=== PATIENT | female | born 1945 | race African-American/Black ===

== ENCOUNTER 2016-05-15 13:44 | Inpatient (IN) | payer MEDICARE, MEDICAID ==
[~2016-05-15] VITALS: Ht 172.7 cm; Wt 73.5 kg
[~2016-05-15 13:44] MED LIST: ALBU8I INH; DUONI NEB; HYDR-3535 PO; LISI-515 PO; NITR.4 SL; PROT40TA PO; XANA1TAB2 PO; XANA1TAB6 PO; XARE10TA PO
[2016-05-15 13:46] VITALS: BP 124/75; PULSE 126; RESP 14; TEMP 98.2; O2SAT 96
[2016-05-15 14:29] LABS: AUTOMATED NEUTROPHIL # 7.4 TH/MM3 (1.8-7.7); BASOPHIL # 0.1 TH/MM3 (0-0.2); EOSINOPHIL # 0.1 TH/MM3 (0-0.4); HEMATOCRIT 34.2 % (35.0-46.0); HEMO FLAGS DIFF FINAL; LYMPH % 11.4 % (9.0-44.0); LYMPHOCYTE # 1.1 TH/MM3 (1.0-4.8); MEAN CELL VOLUME 81.9 FL (80.0-100.0); MEAN CORPUSCULAR HEMOGLOBIN 26.1 PG (27.0-34.0); MEAN CORPUSCULAR HGB CONC 31.9 % (32.0-36.0); MONO % 6.6 % (0.0-8.0); PLATELET COUNT 253 TH/MM3 (150-450); RED BLOOD COUNT 4.18 MIL/MM3 (4.00-5.30); RED CELL DISTRIBUTION WIDTH 21.4 % (11.6-17.2); WHITE BLOOD COUNT 9.3 TH/MM3 (4.0-11.0)
[2016-05-15 14:31] LABS: APTT (PATIENT) 31.2 SEC (24.3-30.1); INTERNATIONAL NORMALIZED RATIO 1.1 RATIO
[2016-05-15 14:45] LABS: BICARBONATE 22.8 MEQ/L (21.0-32.0); POTASSIUM 3.4 MEQ/L (3.5-5.1)
[2016-05-15] MEDS ORDERED: SODIUM CHLOR 0.9% 1000 ML INJ 1,000 ML IV SCH ×3 (14:46→18:45)
[2016-05-15 14:50] VITALS: RESP 18; O2SAT 98
[2016-05-15] MEDS ORDERED: ONDANSETRON HCL 4 MG/2 ML VIAL IVP ONE (15:00)
[2016-05-15] MEDS ORDERED: MORPHINE SULFATE 4 MG/ML INJ IV PUSH ONE (15:00)
--- NOTE | 2016-05-15 15:22 | PD ---
HPI Chief Complaint: Fall Time Seen by Provider: 15:16 Travel History International Travel<30 days: No Contact w/Intl Traveler<30days: No Traveled to known affect area: No History of Present Illness HPI 71-year-old female with a history of esophageal cancer that presents to the ED for evaluation of generalized weakness after a fall that she had about 1-2 months ago. Per patient she fell down some stairs. Per patient she went to [facility]. Unclear as to what they did as she cannot really tell me. Per patient she didn't have any fractures. Per patient and she will get better but she has not. Per patient she feels very weak and she has pain all over. Per patient she is to take Lortab for her chronic pain but she no longer takes this recurs she cannot even go to see her doctor. Per patient she has not seen anybody for this. Per patient she has a history of what appears to be esophageal cancer and she was supposed to follow with a GI doctor after her chemotherapy radiation but she has not in the past 6 months. She does have a history of smoking. She states that she has some chest pain as well as abdominal discomfort as well as urinary incontinence but denies any problems with bowel movements. Per patient she has difficulty ambulating she came here by ambulance because she cannot walk anymore. Per patient she does drink and oriented because of this. She states that her pain is "everywhere ". Mainly on the lower extremities and appears to be per patient 8 out of 10. She denies any allergies to medication. Per patient is also having difficulty swallowing and she cannot even swallow her pills. PFSH Past Medical History Hx Anticoagulant Therapy: Yes Cardiovascular Problems: Yes Chemotherapy: Yes Diminished Hearing: No Hypertension: Yes Respiratory: Yes Tetanus Vaccination: > 5 Years Influenza Vaccination: Yes ?: Not Menopausal: Yes Past Surgical History Hysterectomy: Yes Joint Replacement: Yes (BILATERAL KNEES) Social History Alcohol Use: Yes (OCASSIONALLY) Tobacco Use: Yes Substance Use: Yes (POT) Allergies-Medications (Allergen,Severity, Reaction): Coded Allergies: No Known Allergies (Unverified , 05/15/16) Reported Meds & Prescriptions Reported Meds & Active Scripts Active Reported Xarelto (Rivaroxaban) 10 Mg Tab Unknown Dose PO DAILY Lortab (Hydrocodone-Acetaminophen) 10-325 Mg Tab 1 Tab PO Q6HR PRN Xanax (Alprazolam) 1 Mg Tab 1 Mg PO TID PRN Lisinopril 20 Mg Tab 20 PO DAILY Review of Systems Except as stated in HPI: all other systems reviewed are Neg Physical Exam Narrative GENERAL: SKIN: Warm and dry. HEAD: Atraumatic. Normocephalic. EYES: Pupils equal and round 4 mm reactive to light and accommodation. No scleral icterus. No injection or drainage. ENT: No nasal bleeding or discharge. Mucous membranes pink and moist. Tongue is midline. No uvula deviation. Tonsils are not enlarged or swollen. Uvula deviation. Patient does have irritation of the throat with possible skin lesions. NECK: Trachea midline. No JVD. CARDIOVASCULAR: Regular rate and rhythm. No murmurs, S3, S4. RESPIRATORY: No accessory muscle use. Clear to auscultation. Breath sounds equal bilaterally. GASTROINTESTINAL: Abdomen soft, non-tender, nondistended. Hepatic and splenic margins not palpable. MUSCULOSKELETAL: Extremities without clubbing, cyanosis, or edema. No obvious deformities. Full range of motion of the upper and lower extremities bilaterally. 2+ pulses bilaterally. No cervical, thoracic, lumbar spine tenderness to palpation. Patient does have reproducible pain on the lower extremities with any touch or movement. She is able to move them fully actively with no obvious distress. NEUROLOGICAL: Awake and alert. No obvious cranial nerve deficits. Motor grossly within normal limits. Five out of 5 muscle strength in the arms and legs. Normal speech. PSYCHIATRIC: Appropriate mood and affect; insight and judgment normal. Data Data Last Documented VS Vital Signs Date Time Temp Pulse Resp B/P Pulse Ox O2 Delivery O2 Flow Rate FiO2 05/15/16 17:32 98.0 102 18 128/76 96 Room Air Orders Complete Blood Count With Diff (05/15/16 13:59) Basic Metabolic Panel (Bmp) (05/15/16 13:59) Act Partial Throm Time (Ptt) (05/15/16 13:59) Prothrombin Time / Inr (Pt) (05/15/16 13:59) Electrocardiogram (05/15/16 ) Creatine Kinase (Cpk) (05/15/16 14:46) Ckmb (Isoenzyme) Profile (05/15/16 14:46) Troponin I (05/15/16 14:46) Lipase (05/15/16 14:46) Urinalysis - C+S If Indicated (05/15/16 14:46) Alcohol (Ethanol) (05/15/16 14:46) Thyroid Stimulating Hormone (05/15/16 14:46) Chest, Single Ap (05/15/16 14:46) Ct Brain W/O Iv Contrast(Rout) (05/15/16 14:46) Ct Abd/Pel W Iv Contrast(Rout) (05/15/16 14:46) Iv Access Insert/Monitor (05/15/16 14:46) Ecg Monitoring (05/15/16 14:46) Oximetry (05/15/16 14:46) Femur (Ap & Lat/2vws) (05/15/16 14:46) Foot, Limited (2vws) (05/15/16 14:46) Tibia/Fibula (Ap/Lat) (05/15/16 14:46) Ice/Cold Pack (05/15/16 14:46) Foot, Limited (2vws) (05/15/16 ) Tibia/Fibula (Ap/Lat) (05/15/16 ) Femur (Ap & Lat/2vws) (05/15/16 ) Pelvis, Ap Only (Routine) (05/15/16 ) Morphine Inj (Morphine Inj) (05/15/16 15:00) Ondansetron Inj (Zofran Inj) (05/15/16 15:00) Sodium Chlor 0.9% 1000 Ml Inj (Ns 1000 M (05/15/16 14:46) Hepatic Functional Panel (05/15/16 14:46) Ct Thorax/ Chest Wo Iv Contras (05/15/16 ) Labs Laboratory Tests Test 05/15/16 05/15/16 05/15/16 14:10 15:00 16:20 White Blood Count 9.3 TH/MM3 Red Blood Count 4.18 MIL/MM3 Hemoglobin 10.9 GM/DL Hematocrit 34.2 % Mean Corpuscular Volume 81.9 FL Mean Corpuscular Hemoglobin 26.1 PG Mean Corpuscular Hemoglobin 31.9 % Concent Red Cell Distribution Width 21.4 % Platelet Count 253 TH/MM3 Mean Platelet Volume 8.3 FL Neutrophils (%) (Auto) 80.0 % Lymphocytes (%) (Auto) 11.4 % Monocytes (%) (Auto) 6.6 % Eosinophils (%) (Auto) 1.0 % Basophils (%) (Auto) 1.0 % Neutrophils # (Auto) 7.4 TH/MM3 Lymphocytes # (Auto) 1.1 TH/MM3 Monocytes # (Auto) 0.6 TH/MM3 Eosinophils # (Auto) 0.1 TH/MM3 Basophils # (Auto) 0.1 TH/MM3 CBC Comment DIFF FINAL Differential Comment Prothrombin Time 12.0 SEC Prothromb Time International 1.1 RATIO Ratio Activated Partial 31.2 SEC Thromboplast Time Sodium Level 134 MEQ/L Potassium Level 3.4 MEQ/L Chloride Level 97 MEQ/L Carbon Dioxide Level 22.8 MEQ/L Anion Gap 14 MEQ/L Blood Urea Nitrogen 5 MG/DL Creatinine 0.71 MG/DL Estimat Glomerular Filtration 81 ML/MIN Rate Random Glucose 108 MG/DL Calcium Level 9.6 MG/DL Total Bilirubin 0.4 MG/DL Direct Bilirubin 0.2 MG/DL Indirect Bilirubin 0.2 MG/DL Aspartate Amino Transf 40 U/L (AST/SGOT) Alanine Aminotransferase 15 U/L (ALT/SGPT) Alkaline Phosphatase 166 U/L Total Creatine Kinase 50 U/L Troponin I LESS THAN 0.02 NG/ML Total Protein 8.0 GM/DL Albumin 2.9 GM/DL Lipase 135 U/L Thyroid Stimulating Hormone 19.900 uIU/ML 3rd Gen Ethyl Alcohol Level 40 MG/DL Urine Color YELLOW Urine Turbidity CLEAR Urine pH 6.5 Urine Specific Buckley 1.021 Urine Protein NEG mg/dL Urine Glucose (UA) NEG mg/dL Urine Ketones NEG mg/dL Urine Occult Blood NEG Urine Nitrite NEG Urine Bilirubin NEG Urine Urobilinogen LESS THAN 2.0 MG/DL Urine Leukocyte Esterase NEG Urine RBC LESS THAN 1 /hpf Urine WBC 3 /hpf Urine Squamous Epithelial 1 /hpf Cells Urine Mucus FEW /lpf Microscopic Urinalysis Comment CULT NOT INDICATED MDM Medical Decision Making Medical Screen Exam Complete: Yes Emergency Medical Condition: Yes Medical Record Reviewed: Yes Interpretation(s) CBC & BMP Diagram 05/15/16 14:10 TSh of 19 Troponin, LFTs within normal limits. Lipase within normal limits. CK-MB negative. Last Impressions Tibia/Fibula X-Ray 05/15/16 1446 Signed Impressions: Service Date/Time: Sunday, May 15, 2016 16:13 - CONCLUSION: No acute disease. Jo Raines MD Head CT 05/15/16 1446 Signed Impressions: Service Date/Time: Sunday, May 15, 2016 15:53 - CONCLUSION: Negative for acute traumatic injury. Gerardo Tang MD FACR Foot X-Ray 05/15/16 144 Signed Impressions: Service Date/Time: Sunday, May 15, 2016 16:07 - CONCLUSION: No acute disease. Jo Raines MD Chest X-Ray 05/15/16 144 Signed Impressions: Service Date/Time: Sunday, May 15, 2016 16:05 - CONCLUSION: Multiple pulmonary masses. These appear grossly stable as compared to the prior plain film of the chest dated February 22, 2016.. Jo Raines MD Abdomen/Pelvis CT 05/15/16 144 Signed Impressions: Service Date/Time: Sunday, May 15, 2016 15:57 - CONCLUSION: Abnormal lung exam with a irregular 1.3 cm mass identified within the right lower lung. Given the morphology this could represent a small lung cancer in a background setting of chronic interstitial lung disease. If not previously performed recommend CT of the thorax to evaluate for additional lesions. No evidence of metastatic disease to the adrenal glands or liver. Jo Raines MD Tibia/Fibula X-Ray 05/15/16 0000 Signed Impressions: Service Date/Time: Sunday, May 15, 2016 16:09 - CONCLUSION: No acute disease. Jo Raines MD Foot X-Ray 05/15/16 0000 Signed Impressions: Service Date/Time: Sunday, May 15, 2016 16:08 - CONCLUSION: No acute disease. Jo Raines MD Differential Diagnosis Sepsis versus UTI versus cancer versus cardiac chest pain versus abdominal pain versus cancer pain versus weakness Narrative Course 71-year-old female that presents to the ED for evaluation of generalized weakness. Patient was properly examined and was found to have signs and symptoms of unclear etiology at this time. Commissions for labs and imaging. Patient is very tachycardic during exam. Patient has pain with barely any touch especially in the lower extremities. Patient does have lesions on the back of the throat that appear to be suspicious for tumors. My recommendation at this time is for labs and imaging. Likely admission. Patient was started on IV fluids and pain medication. Labs and imaging were for the most part okay except for slightly elevated TSH as well as lung mass on the right lower lung. My attending Dr. Yu evaluated the patient with me and from the history she obtained from the patient apparently she's also been having syncopal episodes but she is passing out for the past couple days. Patient has had falls because of this increasing her pain. Because of this my attending recommends admission for syncope as well as for the lung mass in the TSH. Patient was told the results on the CT scan of the abdomen and recommendation was to do another CT of the thorax. She agrees for us to proceed. Case was discussed with Dr. Deleon who agrees admission to Dr. Hunter. Diagnosis Primary Impression: Syncope Qualified Code: R55 - Syncope, unspecified syncope type Additional Impressions: Lung mass Hypothyroidism Qualified Code: E03.9 - Hypothyroidism, unspecified type Admitting Information Admitting Physician Requests: Issa Priest May 15, 2016 15:22
[2016-05-15] MEDS ORDERED: IOHEXOL 350 MG/ML 10 ML VIAL (for RAD DIAG) IV ONE (15:57)
--- NOTE | 2016-05-15 16:03 | RADRPT ---
EXAM DATE/TIME: 05/15/2016 15:53 [facility] COMPARISON: CT BRAIN W/O CONTRAST, February 22, 2016, 15:23. INDICATIONS : Fall 1 month ago RADIATION DOSE: 57.02 CTDIvol (mGy) MEDICAL HISTORY : Cardiovascular disease. Hypertension. SURGICAL HISTORY : Hysterectomy. ENCOUNTER: Initial ACUITY: 1 month PAIN SCALE: 0/10 LOCATION: cranial TECHNIQUE: Multiple contiguous axial images were obtained of the head. Using automated exposure control and adj ustment of the mA and/or kV according to patient size, radiation dose was kept as low as reasonably a chievable to obtain optimal diagnostic quality images. FINDINGS: CEREBRUM: The ventricles are normal for age. No evidence of midline shift, mass lesion, hemorrhage or acute in farction. No extra-axial fluid collections are seen. POSTERIOR FOSSA: The cerebellum and brainstem are intact. The 4th ventricle is midline. The cerebellopontine angle i s unremarkable. EXTRACRANIAL: The visualized portion of the orbits is intact. SKULL: The calvaria is intact. No evidence of skull fracture. CONCLUSION: Negative for acute traumatic injury. Gerardo Tang MD FACR on May 15, 2016 at 16:01 Board Certified Radiologist. This report was verified electronically.
--- NOTE | 2016-05-15 16:19 | RADRPT ---
EXAM DATE/TIME: 05/15/2016 15:57 [facility] COMPARISON: CT ABDOMEN & PELVIS W CONTRAST, March 07, 2016, 3:44. INDICATIONS : Generalized weakness with fall 1 month ago IV CONTRAST: 97 cc Omnipaque 350 (iohexol) IV ORAL CONTRAST: No oral contrast ingested. RADIATION DOSE: 8.42 CTDIvol (mGy) MEDICAL HISTORY : Hypertension. Cardiovascular disease SURGICAL HISTORY : Hysterectomy. ENCOUNTER: Initial ACUITY: 1 month PAIN SCALE: 0/10 LOCATION: Abdomen TECHNIQUE: Volumetric scanning of the abdomen and pelvis was performed. Using automated exposure control and adjustment of the mA and/or kV according to patient size, radiation dose was kept as low as reasonably achievable to obtain optimal diagnostic quality images. FINDINGS: LOWER LUNGS: The lower lungs are significant for diffuse areas of reticular interstitial thickeni ng seen predominately within the subpleural lung with overall hazy groundglass opacity within the gustavo g bases. There is a spiculated 1.3 cm mass identified within the right lower lobe which has not signi ficantly changed as compared to the prior exam of March 2016. LIVER: Homogeneous low density without lesion. There is no dilation of the biliary tree. No rancho cified gallstones. SPLEEN: Normal size without lesion. PANCREAS: Within normal limits. KIDNEYS: Normal in size and shape. There is no mass, stone or hydronephrosis. ADRENAL GLANDS: Within normal limits. VASCULAR: There is no aortic aneurysm. Extensive atherosclerosis. BOWEL/MESENTERY: The stomach, small bowel, and colon demonstrate no acute abnormality. There is no free intraperitoneal air or fluid. ABDOMINAL WALL: Within normal limits. RETROPERITONEUM: There is no lymphadenopathy. BLADDER: No wall thickening or mass. REPRODUCTIVE: Status post prior hysterectomy. INGUINAL: There is no lymphadenopathy or hernia. MUSCULOSKELETAL: Within normal limits for patient age. No evidence of fracture. CONCLUSION: Abnormal lung exam with a irregular 1.3 cm mass identified within the right lower gustavo g. Given the morphology this could represent a small lung cancer in a background setting of chronic i nterstitial lung disease. If not previously performed recommend CT of the thorax to evaluate for jenelle tional lesions. No evidence of metastatic disease to the adrenal glands or liver. Jo Raines MD on May 15, 2016 at 16:13 Board Certified Radiologist. This report was verified electronically.
--- NOTE | 2016-05-15 16:38 | RADRPT ---
EXAM DATE/TIME: 05/15/2016 16:05 [facility] COMPARISON: CHEST SINGLE AP, February 22, 2016, 15:09. CT ABDOMEN & PELVIS W CONTRAST, May 15, 2016, 15:57. INDICATIONS : Fell two months ago. MEDICAL HISTORY : Emphysema. Chronic obstructive pulmonary disease. Carcinoma, esophageal. SURGICAL HISTORY : Infusaport ENCOUNTER: Initial ACUITY: 2 months PAIN SCORE: 5/10 LOCATION: Bilateral chest FINDINGS: AP upright view of the chest demonstrates a right-sided central line with the tip overlying the dista l SVC. The lungs are significant for multiple rounded airspace opacities bilaterally the largest mass within the upper lung measuring 2 cm appears grossly unchanged in size as compared to the prior exam of February 2016. The remainder of the masses seen bilaterally also appear grossly unchanged in size. Heart size appears normal and there is stable moderate tortuosity of the thoracic aorta. CONCLUSION: Multiple pulmonary masses. These appear grossly stable as compared to the prior plain film of the [facility] dated February 22, 2016.. Jo Raines MD on May 15, 2016 at 16:34 Board Certified Radiologist. This report was verified electronically.
--- NOTE | 2016-05-15 16:41 | RADRPT ---
EXAM DATE/TIME: 05/15/2016 16:08 [facility] COMPARISON: FOOT RIGHT LIMITED (2VWS), May 15, 2016, 16:07. INDICATIONS : Patient fell, complains of pain in left foot. MEDICAL HISTORY : None. SURGICAL HISTORY : None. ENCOUNTER: Initial ACUITY: 2 months PAIN SCORE: 8/10 LOCATION: Left foot FINDINGS: Two view examination of the left foot demonstrates no soft tissue swelling, dislocation, or fracture. The calcaneus is intact. Bony mineralization is normal. CONCLUSION: No acute disease. Jo Raines MD on May 15, 2016 at 16:39 Board Certified Radiologist. This report was verified electronically.
--- NOTE | 2016-05-15 16:41 | RADRPT ---
EXAM DATE/TIME: 05/15/2016 16:09 [facility] COMPARISON: FOOT LEFT LIMITED (2VWS), May 15, 2016, 16:08. INDICATIONS : Left lower leg pain, patient fell. MEDICAL HISTORY : None. SURGICAL HISTORY : None. ENCOUNTER: Initial ACUITY: 2 months PAIN SCORE: 8/10 LOCATION: Left Tibia FINDINGS: Two view examination of the left tibia demonstrates no evidence of fracture or dislocation. Bony min eralization is normal. The soft tissue structures are intact. CONCLUSION: No acute disease. Jo Raines MD on May 15, 2016 at 16:40 Board Certified Radiologist. This report was verified electronically.
--- NOTE | 2016-05-15 16:42 | RADRPT ---
EXAM DATE/TIME: 05/15/2016 16:13 [facility] COMPARISON: TIBIA/FIBULA LEFT (AP/LAT), May 15, 2016, 16:09. INDICATIONS : Right lower leg pain, patient fell. MEDICAL HISTORY : None. SURGICAL HISTORY : None. ENCOUNTER: Initial ACUITY: 2 months PAIN SCORE: 8/10 LOCATION: Right tibia FINDINGS: Two view examination of the right tibia demonstrates no evidence of fracture or dislocation. Bony mi neralization is normal. The soft tissue structures are intact. CONCLUSION: No acute disease. Jo Raines MD on May 15, 2016 at 16:40 Board Certified Radiologist. This report was verified electronically.
--- NOTE | 2016-05-15 16:43 | RADRPT ---
EXAM DATE/TIME: 05/15/2016 16:07 [facility] COMPARISON: No previous studies available for comparison. FINDINGS: Two view examination of the right foot demonstrates no soft tissue swelling, dislocation, or fracture . The calcaneus is intact. Bony mineralization is normal. CONCLUSION: No acute disease. Jo Raines MD on May 15, 2016 at 16:41 Board Certified Radiologist. This report was verified electronically.
[2016-05-15 17:11] LABS: BLOOD, URINE NEG (NEG); COMMENT (UR) CULT NOT INDICATED; CULTURE IF INDICATED CULT NOT INDICATED; GLUCOSE,URINE NEG (NEG); KETONE, URINE NEG (NEG); MUCUS URINE FEW /lpf (OCC); NITRITE,URINE NEG (NEG); PH, URINE 6.5 (5.0-8.5); SQUAMOUS EPITHELIAL CELL URINE 1 /hpf (0-5); URINE COLOR YELLOW (YELLW/STRAW)
--- NOTE | 2016-05-15 17:18 | RADRPT ---
EXAM DATE/TIME: 05/15/2016 17:09 [facility] COMPARISON: No previous studies available for comparison. INDICATIONS : Fell, complains of pain in left femur when moving. MEDICAL HISTORY : None. SURGICAL HISTORY : None. ENCOUNTER: Initial ACUITY: 2 months PAIN SCORE: 0/10 LOCATION: Left femur FINDINGS: Two view examination of the left femur demonstrates no evidence of fracture or dislocation. Bony min eralization is normal. Moderate osteoarthritis is noted involving the left patellofemoral and femoro tibial joints. The soft tissue structures are intact. CONCLUSION: No acute fracture or dislocation. Moderate osteoarthritis involving the left patellof emoral and femorotibial joints. Gavin Mackay MD on May 15, 2016 at 17:15 Board Certified Radiologist. This report was verified electronically.
--- NOTE | 2016-05-15 17:19 | RADRPT ---
EXAM DATE/TIME: 05/15/2016 17:07 [facility] COMPARISON: CT ABDOMEN & PELVIS W CONTRAST, May 15, 2016, 15:57. INDICATIONS : Fell, complains of pain when walking. MEDICAL HISTORY : None. SURGICAL HISTORY : None. ENCOUNTER: Initial ACUITY: 2 months PAIN SCORE: 0/10 LOCATION: Bilateral pelvis FINDINGS: A single frontal view of the pelvis demonstrates no evidence of fracture. The bony pelvic ring is in tact. Bony mineralization is normal. The soft tissues are intact. CONCLUSION: Unremarkable examination of the pelvis. Tito Gonzales MD on May 15, 2016 at 17:16 Board Certified Radiologist. This report was verified electronically.
[2016-05-15 17:25] LABS: ALKALINE PHOSPHATASE 166 U/L (45-117); ALT (GPT) 15 U/L (10-53); AST (GOT) 40 U/L (15-37); INDIRECT BILIRUBIN 0.2 MG/DL (0.0-0.8); TOTAL BILIRUBIN ADULT 0.4 MG/DL (0.2-1.0)
[2016-05-15 17:28] LABS: CREATINE KINASE 50 U/L (26-192)
[2016-05-15 17:32] VITALS: BP 128/76; PULSE 102; RESP 18; TEMP 98; O2SAT 96
--- NOTE | 2016-05-15 18:26 | RADRPT ---
EXAM DATE/TIME: 05/15/2016 17:57 [facility] COMPARISON: No previous studies available for comparison. INDICATIONS : Abnoromal chest xray history of esophpgeal cancer. RADIATION DOSE: 6.19 CTDIvol (mGy) MEDICAL HISTORY : Carcinoma, esophageal. Hypertension. SURGICAL HISTORY : None. ENCOUNTER: Initial ACUITY: 1 day PAIN SCALE: 5/10 LOCATION: chest TECHNIQUE: Volumetric scanning of the chest was performed. Using automated exposure control and adjustment of t he mA and/or kV according to patient size, radiation dose was kept as low as reasonably achievable to obtain optimal diagnostic quality images. FINDINGS: LUNGS: Multiple bilateral masses including one anteriorly in the left upper lobe measuring 3 cm. One in the left upper lobe posteriorly and laterally measuring 3.9 cm. One is seen in the superior segment left lower lobe measuring 2.3 cm. One in the anterior right upper lobe measuring 3.1 cm. One is seen withi n the posterior right upper lobe measuring 5.9 x 4.2 cm. Nodule is seen within the right lower lobe m easuring 1.4 cm. Some of these masses demonstrates cavitation. PLEURAE: There is no pleural thickening or pleural effusion. MEDIASTINUM: The heart and great vessels demonstrate no acute abnormality. There is no mediastinal or hilar lymph adenopathy. Ascending aortic aneurysm measures 4.6 cm. Coronary artery calcifications. AXILLAE: Within normal limits. No lymphadenopathy. MUSCULOSKELETAL: Increased sclerosis and associated severe compression deformity what appears to be T6. MISCELLANEOUS: The visualized upper abdominal organs demonstrate no acute abnormality. Fatty liver. Right-sided port acatheter with tip in the SVC. CONCLUSION: 1. Multiple bilateral pulmonary masses the largest in the posterior right upper lobe measuring 5.9 x 4.2 cm. Some of these masses contain cavitation. This is likely secondary to metastatic disease. 2. Ascending aortic aneurysm measuring 4.6 cm. 3. Sclerotic severe compression deformity of what appears to be T6. Kory Villa MD on May 15, 2016 at 18:19 Board Certified Radiologist. This report was verified electronically.
--- NOTE | 2016-05-15 18:37 | RADRPT ---
EXAM DATE/TIME: 05/15/2016 17:09 [facility] COMPARISON: No previous studies available for comparison. INDICATIONS : Right femur pain after fall. MEDICAL HISTORY : None. SURGICAL HISTORY : None. ENCOUNTER: Initial ACUITY: 2 months PAIN SCORE: 2/10 LOCATION: Right femur FINDINGS: Two view examination of the right femur demonstrates no evidence of fracture or dislocation. There is some benign periosteal reaction distal shaft of the femur. Vascular calcifications Bony mineralizati on is normal. The soft tissue structures are intact. CONCLUSION: 1. No acute fracture. 2. Benign periosteal reaction distal femur. Kory Villa MD on May 15, 2016 at 18:34 Board Certified Radiologist. This report was verified electronically.
[2016-05-15] MEDS: ACETAMINOPHEN/HYDROcodone 325 MG/10 MG TAB PO PRN (20:05)
[2016-05-15 20:23] VITALS: BP 131/75; PULSE 99; RESP 18; O2SAT 95
[2016-05-15 21:20] VITALS: BP 154/106; PULSE 121; RESP 20; TEMP 98; O2SAT 95
[2016-05-15 22:46] VITALS: BP 158/98
[2016-05-16] VITALS (8 sets, daily range): BP systolic 117–147; BP diastolic 58–93; PULSE 104–126; RESP 16–20; TEMP 97.3–98.3; O2SAT 95–98
[2016-05-16] MEDS: ACETAMINOPHEN/HYDROcodone 325 MG/10 MG TAB PO PRN ×4 (03:54→20:04)
[2016-05-16] MEDS: LEVOTHYROXINE SODIUM 50 MCG TAB PO SCH (05:59)
[2016-05-16 06:02] LABS: HEMATOCRIT 30.4 % (35.0-46.0); MEAN CELL VOLUME 82.2 FL (80.0-100.0); MEAN CORPUSCULAR HGB CONC 31.7 % (32.0-36.0); PLATELET COUNT 191 TH/MM3 (150-450); RED CELL DISTRIBUTION WIDTH 21.1 % (11.6-17.2); REVIEW FLAG FINAL; WHITE BLOOD COUNT 6.6 TH/MM3 (4.0-11.0)
[2016-05-16] MEDS: ALPRAZolam 1 MG TAB PO PRN ×2 (06:08→23:02)
[2016-05-16 06:26] LABS: FREE T4 0.73 NG/DL (0.76-1.46)
--- NOTE | 2016-05-16 09:41 | HHI.HP ---
[facility] Gerardo Workman, DO Admission Diagnosis syncope, right lung mass, hypothyroidism Diagnoses: Chief Complaint: pain all over, fall, poss. syncope (Velma Rosales) Travel History International Travel<30 Days: No Contact w/Intl Traveler <30 Da: No Traveled to Known Affected Are: No (Velma RosalesNapoleon AKASH) History of Present Illness This is a 71-year-old female known to our services with prior history esophageal cancer diagnosed in 2014, underwent chemotherapy and radiation as well as PEG tube placement due to dysphagia. Patient never followed up as outpatient with Dr. Santos. Her last visit was with Dr. Minaya, radiation oncologist. Per review of note, patient was supposed to follow up with Dr. Santos and have follow-up imaging. Patient came to the emergency room complaining of generalized weakness and pain after having a fall 2 months ago. Patient is a poor historian, information is obtained from review of previous medical records. Patient endorses that she tripped and fell 2 months ago and went to the ER of [facility] where she was examined and discharged. Review from medical records here at [place] shows that she has visited the emergency room 3-4 times for alcohol abuse, and also for a fall in February 2016. During the February ER visit, she had imaging studies done showing bilateral pulmonary nodules, concerning for metastatic disease. Unfortunately patient signed out AMA. A certified letter was sent by the Hospital. During this visit, patient complains of pain all over, she's noted weight loss of 5-6 pounds, has had a cough with sputum production, poor appetite, no fever, no chills. Has had chronic chest pain, SOB. Has had a few episodes of vomiting. States that she is so weak that her legs buckle and a few time she has "passed out". Denies any head injury, no neck pain. States that she lives with her significant other and he tries to help her out. Endorses that she has a lot of personal problems therefore she has not had the time to follow up with oncologist. She is complaining of difficulty swallowing, indicates the pills are getting stuck and she has not taken medications in several months. The last doctor she followed up with [facility] last week it is not clear if he did any workup. Her general manager in training is Dr. Mccormick who recently started her on Xarelto, there is a prior history of atrial fibrillation however patient is not able to recalled when asked. Indicates she was put on this medication for "abdominal aneurysm" however this is not likely. Patient states that she was taking medications for pain, was on Lortab. States that she quit smoking approximately 6 months ago because she was coughing so much. Denies any daily alcohol use, however she drank 2 shots 2 nights ago because she was having so much pain. She does smoke marijuana regularly. In the emergency room, patient was evaluated. She was found tachycardic, complaining of pain with minimal to touch. TSH was noted elevated. Alcohol level was 40. Tib-fib x-ray and foot x -ray didn't show any fractures. Abdominal pelvis CT shows abnormal lung exam with irregular 1.3 cm mass identified within the right lower lung. Chest x-ray showed multiple pulmonary masses, this appeared grossly stable as compared to the -chest exam from February 22, 2016. Head CT was negative. Chest CT is significant for bilateral pulmonary masses the largest and posterior right upper lobe measuring 5.9 x 4.2 cm. Some of this masses contained cavitation. This is likely secondary to metastatic disease. There is also an ascending aortic aneurysm measuring 4.6 cm. There is sclerotic severe compression deformity of what appears to be T6. Patient is examined, she is aware of imaging findings and is agreeable to undergo diagnostic workup as needed. When asked about family, indicates she has grown children that she has very little contact with. Patient is admitted for further evaluation and treatment. (Velma Rosales) Review of Systems ROS Limitations: Poor Historian Constitutional: COMPLAINS OF: Fatigue, Weight loss, Change in appetite, DENIES : Diaphoretic episodes, Fever, Weight gain, Chills, Dizziness, Night Sweats Endocrine: DENIES: Abnorml menstrual pattern, Heat/cold intolerance, Polydipsia , Polyuria, Polyphagia Eyes: DENIES: Blurred vision, Diplopia, Eye inflammation, Eye pain, Vision loss , Photosensitivity, Double Vision Ears, nose, mouth, throat: COMPLAINS OF: Oral lesions, Throat pain, Odynophagia , DENIES: Tinnitus, Hearing loss, Vertigo, Nasal discharge, Hoarseness, Ear Pain, Running Nose, Epistaxis, Sinus Pain, Toothache Respiratory: COMPLAINS OF: Wheezing, Sputum production, Shortness of breath, DENIES: Apneas, Cough, Snoring, Hemoptysis Cardiovascular: COMPLAINS OF: Chest pain, DENIES: Palpitations, Syncope, Dyspnea on Exertion, PND, Lower Extremity Edema, Orthopnea, Claudication Gastrointestinal: COMPLAINS OF: Abdominal pain, DENIES: Black stools, Bloody stools, Constipation, Diarrhea, Nausea, Vomiting, Difficulty Swallowing, Anorexia Genitourinary: DENIES: Abnormal vaginal bleeding, Dysmenorrhea, Dyspareunia, Sexual dysfunction, Urinary frequency, Urinary incontinence, Urgency, Hematuria , Dysuria, Nocturia, Vaginal discharge Musculoskeletal: COMPLAINS OF: Joint pain, Muscle aches, Back pain, Neck pain, DENIES: Stiffness, Joint Swelling Integumentary: DENIES: Abnormal pigmentation, Pruritus, Rash, Nail changes, Breast masses, Breast skin changes, Nipple discharge Hematologic/lymphatic: DENIES: Bruising, Lymphadenopathy Immunologic/allergic: DENIES: Eczema, Urticaria Neurologic: DENIES: Abnormal gait, Headache, Localized weakness, Paresthesias, Seizures, Speech Problems, Tremor, Poor Balance Psychiatric: COMPLAINS OF: Anxiety, DENIES: Confusion, Mood changes, Depression, Hallucinations, Agitation, Suicidal Ideation, Homicidal Ideation, Delusions (Velma Rosales) Past Family Social History Past Medical History 1. Left thumb injury 2005. 2. Tobacco abuse. 3. Chronic obstructive pulmonary disease. 4. Esophageal cancer 5. Recent esophagogastroduodenoscopy. 6. Hysterectomy. 7. Cartilage removal from both knees. 8. Arthritis. 9. Hiatal hernia. 10. Colonoscopy five years ago with findings of polyps. 11. Hypertension. 12. Diagnosed with esophageal cancer April 2014, underwent PEG placement, had chemotherapy and radiation. Oncologist was Dr. Santos and radiation oncologist Dr. Minaya. Never followed up with oncology after treatment. Saw Dr. Minaya 2014, never came back for follow up imaging as planned. 13. S/P EGD with dilatation 2014 14. Afib, sees Dr. Thorne 15. Peg insertion, has been removed 16. COPD 17. Tobacco and ETOH abuse Reported Medications Reported Meds & Active Scripts Active Reported Xarelto (Rivaroxaban) 10 Mg Tab Unknown Dose PO DAILY Lortab (Hydrocodone-Acetaminophen) 10-325 Mg Tab 1 Tab PO Q6HR PRN Xanax (Alprazolam) 1 Mg Tab 1 Mg PO TID PRN Lisinopril 20 Mg Tab 20 PO DAILY (Velma Rosales) Allergies: Coded Allergies: No Known Allergies (Verified , 11/13/15) Active Ordered Medications Inpatient Medications Acetaminophen/ Hydrocodone Bitart 1 tab 1 tab Q6HR PRN PO PAIN 1-10 Last administered on 05/16/16 03:54; Start 05/15/16 at 18:45 Alprazolam (Xanax) 1 mg TID PRN PO ANXIETY Last administered on 05/16/16 06:08 ; Start 05/15/16 at 18:45 Levothyroxine Sodium (Synthroid) 50 mcg DAILY@0600 PO Last administered on 05/16 05:59; Start 05/16/16 at 06:00 Morphine Sulfate (Morphine Inj) 4 mg ONCE ONCE IV PUSH Last administered on 14:58; Start 05/15/16 at 15:00; Stop 05/15/16 at 15:01; Status DC Ondansetron HCl (Zofran Inj) 4 mg ONCE ONCE IVP Last administered on 14:57; Start 05/15/16 at 15:00; Stop 05/15/16 at 15:01; Status DC Sodium Chloride (NS 1000 ml Inj) 1,000 ml @ 100 mls/hr Q10H IV Last administered on 05/16/16 03:55; Start 05/15/16 at 18:45 Family History Reviewed, non contributory, poor historian. Social History The patient does not work. She has a boyfriend who lives with her. She drinks, would not elaborate how much. States she had "2 shots" 2 nights ago. Per previous ED visits, + ETOH abuse. Quit smoking 6 months ago. Was 2 pack a day smoker for many years. (Velma Rosales) Physical Exam Vital Signs Vital Signs Date Time Temp Pulse Resp B/P Pulse Ox O2 Delivery O2 Flow Rate FiO2 05/16/16 04:00 98.2 109 20 133/86 95 134/87 05/16/16 00:15 98.3 113 20 147/86 97 05/15/16 22:46 158/98 05/15/16 22:43 Room Air 05/15/16 21:20 98.0 121 20 154/106 95 05/15/16 20:23 99 18 131/75 95 Room Air 05/15/16 17:32 98.0 102 18 128/76 96 Room Air 05/15/16 15:03 17 05/15/16 14:50 18 98 Room Air 05/15/16 14:35 18 98 Room Air 05/15/16 13:46 98.2 126 14 124/75 96 Room Air Physical Exam GENERAL: This is a malnourished, chronically ill-appearing female. SKIN: No rashes, ecchymoses or lesions. Cool and dry. HEAD: Atraumatic. Normocephalic. No temporal or scalp tenderness. EYES: Pupils equal round and reactive. Extraocular motions intact. No scleral icterus. No injection or drainage. ENT: Nose without bleeding, purulent drainage or septal hematoma. Oropharynx is noted with small patches of thrush, mild erythema. No exudate. Uvula midline. Airway patent. NECK: Trachea midline. No JVD or lymphadenopathy. Supple, nontender, no meningeal signs. CARDIOVASCULAR: Regular rate and rhythm without murmurs, gallops, or rubs. RESPIRATORY: Coarse rhonchi, expiratory wheezing. Has a nonproductive cough. GASTROINTESTINAL: Abdomen soft, non-tender, nondistended. No hepato-splenomegaly , or palpable masses. No guarding. MUSCULOSKELETAL: Extremities without clubbing, cyanosis, or edema. No joint tenderness, effusion, or edema noted. No calf tenderness. Negative Homans sign bilaterally. Complaints of pain to palpation of all extremities, no joint abnormalities noted. NEUROLOGICAL: Awake, alert oriented 3. No focal deficits. Speech is clear. Poor historian. Laboratory Laboratory Tests Test 05/15/16 05/15/16 05/15/16 05/16/16 14:10 15:00 16:20 05:26 White Blood Count 9.3 6.6 Red Blood Count 4.18 3.70 Hemoglobin 10.9 9.6 Hematocrit 34.2 30.4 Mean Corpuscular Volume 81.9 82.2 Mean Corpuscular Hemoglobin 26.1 26.0 Mean Corpuscular Hemoglobin 31.9 31.7 Concent Red Cell Distribution Width 21.4 21.1 Platelet Count 253 191 Mean Platelet Volume 8.3 8.2 Neutrophils (%) (Auto) 80.0 Lymphocytes (%) (Auto) 11.4 Monocytes (%) (Auto) 6.6 Eosinophils (%) (Auto) 1.0 Basophils (%) (Auto) 1.0 Neutrophils # (Auto) 7.4 Lymphocytes # (Auto) 1.1 Monocytes # (Auto) 0.6 Eosinophils # (Auto) 0.1 Basophils # (Auto) 0.1 CBC Comment DIFF FINAL Differential Comment Prothrombin Time 12.0 Prothromb Time International 1.1 Ratio Activated Partial 31.2 Thromboplast Time Sodium Level 134 Potassium Level 3.4 Chloride Level 97 Carbon Dioxide Level 22.8 Anion Gap 14 Blood Urea Nitrogen 5 Creatinine 0.71 Estimat Glomerular Filtration 81 Rate Random Glucose 108 Calcium Level 9.6 Total Bilirubin 0.4 Direct Bilirubin 0.2 Indirect Bilirubin 0.2 Aspartate Amino Transf 40 (AST/SGOT) Alanine Aminotransferase 15 (ALT/SGPT) Alkaline Phosphatase 166 Total Creatine Kinase 50 Troponin I LESS THAN 0.02 Total Protein 8.0 Albumin 2.9 Lipase 135 Thyroid Stimulating Hormone 19.900 12.800 3rd Gen Ethyl Alcohol Level 40 Urine Color YELLOW Urine Turbidity CLEAR Urine pH 6.5 Urine Specific Shelby 1.021 Urine Protein NEG Urine Glucose (UA) NEG Urine Ketones NEG Urine Occult Blood NEG Urine Nitrite NEG Urine Bilirubin NEG Urine Urobilinogen LESS THAN 2.0 Urine Leukocyte Esterase NEG Urine RBC LESS THAN 1 Urine WBC 3 Urine Squamous Epithelial 1 Cells Urine Mucus FEW Microscopic Urinalysis Comment CULT NOT INDICATED Free Thyroxine 0.73 (Velma Rosales) Result Diagram: 05/16/16 0526 05/15/16 1410 Imaging Last Impressions Tibia/Fibula X-Ray 05/15/161445 Signed Impressions: Service Date/Time: Sunday, May 15, 2016 16:13 - CONCLUSION: No acute disease. Jo Raines MD Head CT 05/15/16 144 Signed Impressions: Service Date/Time: Sunday, May 15, 2016 15:53 - CONCLUSION: Negative for acute traumatic injury. Gerardo Tang MD FACR Foot X-Ray 05/15/16 144 Signed Impressions: Service Date/Time: Sunday, May 15, 2016 16:07 - CONCLUSION: No acute disease. Jo Raines MD Femur X-Ray 05/15/161445 Signed Impressions: Service Date/Time: Sunday, May 15, 2016 17:09 - CONCLUSION: 1. No acute fracture. 2. Benign periosteal reaction distal femur. Kory Villa MD Chest X-Ray 05/15/16 1446 Signed Impressions: Service Date/Time: Sunday, May 15, 2016 16:05 - CONCLUSION: Multiple pulmonary masses. These appear grossly stable as compared to the prior plain film of the chest dated February 22, 2016.. Jo Raines MD Abdomen/Pelvis CT 05/15/16 1446 Signed Impressions: Service Date/Time: Sunday, May 15, 2016 15:57 - CONCLUSION: Abnormal lung exam with a irregular 1.3 cm mass identified within the right lower lung. Given the morphology this could represent a small lung cancer in a background setting of chronic interstitial lung disease. If not previously performed recommend CT of the thorax to evaluate for additional lesions. No evidence of metastatic disease to the adrenal glands or liver. Jo Raines MD Pelvis X-Ray 05/15/16 0000 Signed Impressions: Service Date/Time: Sunday, May 15, 2016 17:07 - CONCLUSION: Unremarkable examination of the pelvis. Tito Gonzales MD Chest CT 05/15/16 0000 Signed Impressions: Service Date/Time: Sunday, May 15, 2016 17:57 - CONCLUSION: 1. Multiple bilateral pulmonary masses the largest in the posterior right upper lobe measuring 5.9 x 4.2 cm. Some of these masses contain cavitation. This is likely secondary to metastatic disease. 2. Ascending aortic aneurysm measuring 4.6 cm. 3. Sclerotic severe compression deformity of what appears to be T6. Kory Villa MD (Velma Rosales [facility]) Assessment and Plan Problem List: (1) Weakness (2) Falls (3) Malignant neoplasm of both lungs (4) Hypothyroidism (5) Syncope (6) Esophageal cancer Plan: HX OF ESOPHAGEAL CANCER, PRIOR CHEMO AND RADIATION (7) COPD (chronic obstructive pulmonary disease) (8) Cough (9) Dysphagia (10) HTN (hypertension) (11) Non-compliance (12) Polysubstance abuse (13) Anemia (14) Ascending aortic aneurysm Assessment and Plan Admit to Dr. Hunter 71-year-old female, prior history esophageal cancer in 2015 treated with radiation and chemotherapy, failed to follow up for oncologic surveillance. Presented to emergency room with weakness, shortness of breath, pain, weight loss, poor appetite. Found with multiple bilateral pulmonary masses, large mass to the right upper lobe, some other masses containing cavitation, also noted with sclerotic severe compression deformity of what appears to be T6. -Consult pulmonology -Consult oncology -We will hold Xarelto, patient will need diagnostic workup COPD with chronic bronchitis DuoNeb's 4 times a day and when necessary Anemia, etiology unclear Iron profile are We will check stools for occult blood Complaining of dysphagia, prior history with last EGD with dilatation in 2016. -Obtain swallow evaluation -We will follow up on results, may need GI for evaluation and possible dilatation Thrush -Nystatin swish and swallow 4 times a day Hypothyroid, has been noncompliant with medications, TSH 19.9 -Resume Synthroid at 50 g daily, needs to follow up as outpatient with PCP for repeat TSH in 6 weeks. Polysubstance abuse, alcohol level 40 -Monitor for withdrawal symptoms -Folic acid and thiamine -Continue with Xanax when necessary -Counselled about substance abuse. History of A. fib, currently sinus rhythm, on Xarelto with poor compliance -Continuous cardiac telemetry -Hold Xarelto, patient will need diagnostic workup for lung masses Ascending aortic aneurysm measuring 4.6 cm (previous CT chest measurement 4.5 cm ) -continue to monitor, stable Generalized weakness with falls and possible syncope -Physical therapy for evaluation and treatment Home medications reviewed, initiated as indicated SCDs for DVT prophylaxis Protonix for GI prophylaxis Plan of care has been reviewed with the patient, attending and registered nurse. Further management of the patient will be dependent on the hospital course Patient's condition is guarded, appear she has limited social support. She understands the gravity of her situation and agrees to continue with further workup. This patient was seen by myself and Dr. Hunter, this H&P is written on his behalf (Velma Rosales) Assessment and Plan Patient seen and examined as above Labs reviewed Meds reviewed Radiological data reviewed Some of the old records reviewed Plan of care discussed with [employer] OPERATOR Discussed with RN Discussed with patient in detail condition guarded (Perdito Hunter MD) Physician Certification 2 Midnight Certification Type: Admission for Inpatient Services Order for Inpatient Services The services are ordered in accordance with Medicare regulations or non- Medicare payer requirements, as applicable. In the case of services not specified as inpatient-only, they are appropriately provided as inpatient services in accordance with the 2-midnight benchmark. Estimated LOS (days): 2 2 days is the estimated time the patient will need to remain in the hospital, assuming treatment plan goals are met and no additional complications. Post-Hospital Plan: Not yet determined (Velma Rosales) Problem Qualifiers (1) Falls: Qualified Code: W19.XXXS - Falls, sequela (2) Hypothyroidism: Qualified Code: E03.9 - Hypothyroidism, unspecified type (3) Syncope: Qualified Code: R55 - Syncope, unspecified syncope type (4) COPD (chronic obstructive pulmonary disease): (5) Dysphagia: Qualified Code: R13.10 - Dysphagia, unspecified type (6) HTN (hypertension): Qualified Code: I10 - Essential hypertension (7) Anemia: Qualified Code: D64.9 - Anemia, unspecified type Velma Rosales May 16, 2016 09:41 Pedrito Hunter MD May 16, 2016 14:32
--- NOTE | 2016-05-16 10:48 | EKG ---
Date Performed: 05/15/2016 Time Performed: 14:40:10 PTAGE: 71 years EKG: SINUS TACHYCARDIA NONSPECIFIC T-WAVE ABNORMALITY ABNORMAL RHYTHM ECG PREVIOUS TRACING : 03/07/2016 02.21 Compared to prior tracing no significant change DOCTOR: Al Herman Interpretating Date/Time 05/16/2016 10:46:47
[2016-05-16] MEDS ORDERED: RESP: ALBUTEROL 2.5 MG/IPRATROPIUM 0.5 MG NEB (PRN) NEB (12:30)
[2016-05-16] MEDS ORDERED: POTASSIUM CL 40 MEQ/30 ML LIQ UDC PO ONE (12:45)
[2016-05-16] MEDS: FOLIC ACID 1 MG TAB PO SCH (14:04)
[2016-05-16] MEDS: PANTOPRAZOLE SOD 40 MG DELAYED RELEASE TAB PO SCH (14:04)
[2016-05-16] MEDS: THIAMINE HCL 100 MG TAB PO SCH (14:04)
[2016-05-16] MEDS: NYSTATIN SUSP 500,000 U/5 ML CUP SWISH-SWAL SCH ×3 (14:05→20:04)
[2016-05-16 14:38] LABS: RETIC % 1.1 % (0.4-3.0); REVIEW FLAG FINAL
[2016-05-16 15:25] LABS: FERRITIN 90 NG/ML (8-252); TRANSFERRIN IRON PROFILE 208 MG/DL (200-360)
[2016-05-16] MEDS: RESP: ALBUTEROL 2.5 MG/IPRATROPIUM 0.5 MG NEB (SCH) NEB ×2 (16:00→20:00)
--- NOTE | 2016-05-16 18:54 | MB ---
cc: Emerson OLIVO M.D. DATE OF CONSULTATION: 05/16/2016. HISTORY OF PRESENT ILLNESS: Ms. Vick is a 71-year-old black female who presents with generalized pain and weakness and recent falls. She has been seen in the emergency room here in the recent past and signed out AMA at least once and apparently has also been seen at [facility], although she is not recalling the details of that. I was asked to see her because CT scan of her chest is very abnormal with several pulmonary nodules suspicious for metastatic lung disease. The patient does state that she has had esophageal cancer diagnosed 2-1/2 years ago and she insists that the treatments were given here, although I do not see any evidence of oncology or radiation therapy seeing her in our computer documentation. I asked her if this was delivered at [facility] and she insists it was here. We do not have any of those details at this point though. Apparently she did receive radiation therapy and chemotherapy. She has a prior alcohol history as well as a smoking history and continues to smoke. She does not really complain of any specific pulmonary symptoms in particular cough, chest pain, hemoptysis or progressive dyspnea. PAST MEDICAL HISTORY: 1. Hypertension. 2. Prior hysterectomy. 3. Bilateral knee replacements. SOCIAL HISTORY: As noted above. She usually lives alone, although she pointed out to me that there is someone who comes in who is a friend and helps to look after her. FAMILY HISTORY: She says she has no family. PHYSICAL EXAMINATION: VITAL SIGNS: 128/76, pulse 100, temperature 98, respirations 18 to 22, room air saturation 96%. HEAD, EYES, EARS, NOSE, THROAT: The sclerae are nonicteric. NECK: No adenopathy in the neck or supraclavicular region. CHEST: Minimal scattered congestion, no wheezing. HEART: Regular rhythm. No harsh murmur. EXTREMITIES: No pitting edema or calf tenderness. No clubbing. IMAGING STUDIES: CT scan is reviewed and she has multiple nodules, some of them with small cavities in both lungs very suspicious for metastatic disease to the lung. DISCUSSION: Mrs. Vick presents with a history that is somewhat confusing. Her details are conflicting and she has been noncompliant and signed out AMA in the past. She also is insisting at this point that everything be done before the weekend because she will leave again. Based on the CT scan alone and the prior history of esophageal cancer, I suspect this is metastatic disease to the lung. I would suggest oncology be involved and see if we can find some old records possibly from [facility] as to the state of her disease and see if further biopsies at this point are warranted or not. She is certainly stable clinically and there is time to sort out the history, again to determine whether or not biopsying these lesions is important for continued therapy. R. MD RATNA Espinosa/TOM /5:12 PM /6:43 PM
--- NOTE | 2016-05-16 21:36 | MB ---
cc: JOSE CHILD M.D. DATE OF CONSULTATION 05/16/[address] Hunter REASON FOR CONSULTATION Oncology consulted to render opinion regarding patient with metastatic cancer. HISTORY OF PRESENT ILLNESS The patient is a 71-year-old female who presented to the hospital with increased weakness, dysphasia and frequent fall. She had a history of a esophageal squamous cell carcinoma diagnosed the end of 2013. At that time, she saw Dr. Minaya and Dr. Santos. She was given radiation with cisplatin and 5-FU. However, she was noncompliant and did not follow up since then. She is a rather poor historian. She stated that over the last few months she has had difficulty swallowing, eventually she had difficulty keeping both solid and liquid food down. She became very weak. She has fallen multiple times. She has lost about 10 pounds over the last 3-4 months. She has been to the emergency room multiple times. In February during one of her emergency room visits, CT showed pulmonary nodule suspicious for metastatic disease. She however did not follow up and she left against medical advice. This time she came in because she became very weak. She has increased shortness of breath. She has nonproductive cough. Denies any hemoptysis. She also have nausea and vomiting every time she tries to eat. She denies abdominal pain. Denies diarrhea or melena or hematochezia. She denies any dysuria, hematuria. She has pain in her shoulder. She states she fell off the stairs about two months ago. PAST MEDICAL HISTORY 1. 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 2. Atrial fibrillation. 3. Tobacco abuse. 4. Chronic obstructive pulmonary disease 5. Hypertension 6. Alcohol abuse. PAST SURGICAL HISTORY 1. Multiple EGDs with dilatation 2. Hysterectomy. 3. Cartilage removed from bilateral knee 4. Hiatal hernia repair. 5. PEG tube placement and removal 6. . FAMILY HISTORY She had one daughter but she has no contact with her SOCIAL HISTORY Smoker, up until three weeks ago she smoked a pack a day for many years. She drinks about one pint of alcohol a week. ALLERGIES NO KNOWN DRUG ALLERGIES. MEDICATIONS current, 1. Albuterol 2. Nystatin 3. Folic acid. 4. Thiamine. 5. Protonix. 6. Levothyroxine. REVIEW OF SYSTEMS CONSTITUTIONAL: She has lost about 10 pounds, has increased weakness. EYES: Denies any blurred vision, double vision. ENT: Denies mouth sores or voice changes. CARDIOVASCULAR: Denies chest pain or palpitations. RESPIRATORY: Has increased shortness of breath and nonproductive cough, denies any hemoptysis. GI: As above. : Denies any dysuria or hematuria. MUSCULOSKELETAL: Has shoulder pain and right chest wall pain since her fall. HEMATOLOGY: Negative. ENDOCRINE: Negative. DERMATOLOGY: Negative. PSYCHIATRIC: Negative. NEUROLOGIC: Negative. PHYSICAL EXAMINATION VITAL SIGNS: Temperature 97.3, pulse 108, blood pressure 143/88, O2 saturation 97%. GENERAL: She is alert and oriented x3 in no acute distress. HEENT: Atraumatic, normocephalic. Pupils equal, round and reactive to light. Extraocular muscles intact. No scleral icterus. Oropharynx had dry mucosa. Positive thrush NECK: No thyromegaly. No palpable masses. LYMPHATIC: No palpable cervical, clavicular, axillary or inguinal lymph node CARDIOVASCULAR: Regular S1-S2, no murmur. LUNGS: Clear to auscultation bilaterally. ABDOMEN: Soft, nontender. I Could not palpate liver or spleen. EXTREMITIES: No cyanosis, no significant edema. BACK: No paravertebral tenderness. SKIN: No rash or petechiae. NEUROLOGIC: Nonfocal. LABORATORY DATA Reviewed. ASSESSMENT 1. Multiple lung masses most consistent with metastatic disease. She has history of esophageal squamous cell carcinoma treated with radiation and chemotherapy at the end of 2013. She, however, was noncompliant and has not followed up. In February 2016, during one of her ER visits, CT showed pulmonary nodule. She, however, left against medical advice and did not follow up. She now presented with constitutional symptoms and increased shortness of breath. CT of the chest showed multiple lung nodules, largest in the right upper lobe measured about 5.9 cm. I think this is most likely metastatic esophageal cancer. Clinically, she also has dysphagia which has been getting worse over the last 3-[address] abdomen and pelvis did not show any metastatic disease. I am going to consult gastroenterology. She is going to need an upper endoscopy. We might be able to get a diagnosis if the upper endoscopy showed significant mass. If not, we can biopsy one of the lung lesions to establish a diagnosis. I told the patient that if she is confirmed to have metastatic esophageal cancer, this is not a curable disease. Palliative chemotherapy may relieve some of her symptoms and prolong her survival. As of this point, she is not sure what she wants to do. However, she agreed with GI evaluation. 2. History of esophageal squamous cell carcinoma treated with radiation along with cisplatin 5 FU in 2013. 3. Proximal atrial fibrillation. 4. Chronic obstructive pulmonary disease 5. Tobacco dependence. 6. Alcohol abuse. RECOMMENDATIONS 1. Consult gastroenterology for upper endoscopy. We might be able to get a diagnosis with the upper endoscopy. If not, could biopsy the lung lesion. 2. Check tumor marker 3. Monitor CBC Thank you, Dr. Hunter, for asking me to see this patient. MD EMILIE Cavanaugh/ /7:51 PM /9:10 PM NEEL
[2016-05-17] VITALS (10 sets, daily range): BP systolic 97–127; BP diastolic 61–88; PULSE 90–114; RESP 16–20; TEMP 97.5–98.2; O2SAT 95–98
[2016-05-17] MEDS: ACETAMINOPHEN/HYDROcodone 325 MG/10 MG TAB PO PRN ×3 (05:49→18:55)
[2016-05-17] MEDS: LEVOTHYROXINE SODIUM 50 MCG TAB PO SCH (05:49)
[2016-05-17 06:23] LABS: AUTOMATED NEUTROPHIL # 3.5 TH/MM3 (1.8-7.7); BASOPHIL # 0.1 TH/MM3 (0-0.2); BASOPHIL % 1.2 % (0.0-2.0); EOSINOPHIL # 0.3 TH/MM3 (0-0.4); EOSINOPHIL % 5.1 % (0.0-4.0); HEMATOCRIT 30.8 % (35.0-46.0); HEMO FLAGS DIFF FINAL; LYMPH % 17.4 % (9.0-44.0); LYMPHOCYTE # 0.9 TH/MM3 (1.0-4.8); MEAN CELL VOLUME 83.1 FL (80.0-100.0); MEAN CORPUSCULAR HGB CONC 31.3 % (32.0-36.0); MONO % 8.3 % (0.0-8.0); PLATELET COUNT 188 TH/MM3 (150-450); WHITE BLOOD COUNT 5.1 TH/MM3 (4.0-11.0)
[2016-05-17] MEDS: RESP: ALBUTEROL 2.5 MG/IPRATROPIUM 0.5 MG NEB (SCH) NEB ×4 (08:55→21:23)
--- NOTE | 2016-05-17 09:15 | HHI.PR ---
Subjective Remarks awake, oriented x 3 feels better c/o gen. pain no cp chronic sob and cough swallowing better, tolerating meals well. wants to make sure we won't keep her over weekend, wants to go home "I will come back Friday" Objective Objective Results - Vital Signs Date Time Temp Pulse Resp B/P Pulse Ox O2 Delivery O2 Flow Rate FiO2 05/17/16 08:59 97 05/17/16 08:00 97.5 110 18 124/81 97 113/73 109/79 05/17/16 04:08 98.1 106 16 127/88 98 05/16/16 23:27 97.6 104 16 136/93 97 05/16/16 20:53 98.2 104 16 125/79 95 05/16/16 20:19 106 05/16/16 20:00 Room Air 05/16/16 16:00 97.3 108 16 143/88 97 05/16/16 12:00 98.2 110 16 126/79 97 I/O 05/16/16 05/16/16 05/16/16 05/17/16 05/17/16 05/17/16 07:00 15:00 23:00 07:00 15:00 23:00 Intake Total 600 ml 1080 ml 720 ml 120 ml Output Total 600 ml 300 ml 400 ml Balance 600 ml 480 ml 420 ml -280 ml Intake Oral 600 ml 1080 ml 720 ml 120 ml Output Urine Total 600 ml 300 ml 400 ml # Voids 1 # Bowel Movements 0 0 0 Result Diagram: 05/17/16 0500 05/15/16 1410 Imaging Last Impressions Tibia/Fibula X-Ray 05/15/161445 Signed Impressions: Service Date/Time: Sunday, May 15, 2016 16:13 - CONCLUSION: No acute disease. Jo Raines MD Head CT 05/15/16 144 Signed Impressions: Service Date/Time: Sunday, May 15, 2016 15:53 - CONCLUSION: Negative for acute traumatic injury. Gerardo Tang MD FACR Foot X-Ray 05/15/161445 Signed Impressions: Service Date/Time: Sunday, May 15, 2016 16:07 - CONCLUSION: No acute disease. Jo Raines MD Femur X-Ray 1/11/17 1446 Signed Impressions: Service Date/Time: Sunday, May 15, 2016 17:09 - CONCLUSION: 1. No acute fracture. 2. Benign periosteal reaction distal femur. Kory Villa MD Chest X-Ray 05/15/16 1446 Signed Impressions: Service Date/Time: Sunday, May 15, 2016 16:05 - CONCLUSION: Multiple pulmonary masses. These appear grossly stable as compared to the prior plain film of the chest dated February 22, 2016.. Jo Raines MD Abdomen/Pelvis CT 05/15/16 1446 Signed Impressions: Service Date/Time: Sunday, May 15, 2016 15:57 - CONCLUSION: Abnormal lung exam with a irregular 1.3 cm mass identified within the right lower lung. Given the morphology this could represent a small lung cancer in a background setting of chronic interstitial lung disease. If not previously performed recommend CT of the thorax to evaluate for additional lesions. No evidence of metastatic disease to the adrenal glands or liver. Jo Raines MD Pelvis X-Ray 05/15/16 0000 Signed Impressions: Service Date/Time: Sunday, May 15, 2016 17:07 - CONCLUSION: Unremarkable examination of the pelvis. Tito Gonzales MD Chest CT 05/15/16 0000 Signed Impressions: Service Date/Time: Sunday, May 15, 2016 17:57 - CONCLUSION: 1. Multiple bilateral pulmonary masses the largest in the posterior right upper lobe measuring 5.9 x 4.2 cm. Some of these masses contain cavitation. This is likely secondary to metastatic disease. 2. Ascending aortic aneurysm measuring 4.6 cm. 3. Sclerotic severe compression deformity of what appears to be T6. Kory Villa MD Other Results Laboratory Tests Test 05/16/16 05/17/16 14:25 05:00 Reticulocyte Count 1.1 Absolute Reticulocyte Count 42.4 Iron Level 65 Total Iron Binding Capacity 291 Percent Iron Saturation 22.3 Ferritin 90 Vitamin B12 Level 584 White Blood Count 5.1 Red Blood Count 3.70 Hemoglobin 9.6 Hematocrit 30.8 Mean Corpuscular Volume 83.1 Mean Corpuscular Hemoglobin 26.0 Mean Corpuscular Hemoglobin 31.3 Concent Red Cell Distribution Width 21.0 Platelet Count 188 Mean Platelet Volume 8.4 Neutrophils (%) (Auto) 68.0 Lymphocytes (%) (Auto) 17.4 Monocytes (%) (Auto) 8.3 Eosinophils (%) (Auto) 5.1 Basophils (%) (Auto) 1.2 Neutrophils # (Auto) 3.5 Lymphocytes # (Auto) 0.9 Monocytes # (Auto) 0.4 Eosinophils # (Auto) 0.3 Basophils # (Auto) 0.1 CBC Comment DIFF FINAL Differential Comment Carcinoembryonic Antigen 54.8 ROS General: Weakness, No: Fatigue, Other HEENT: No: Sore Throat, Dysphagia Cardiac: No: Chest Pain, Edema, Palpitations Pulmonary: Cough, SOB, Wheezing GI: No: Abdominal Pain, BM, Diarrhea, N/V /IMMIGRATION ATTORNEY: No: Dysuria, Urgency Neuro/MS: Other (pain all over ), No: Lightheaded, Confusion Psych: No: Anxiety, Depression Skin: No: Itching, Rash Physical Exam Physical Exam GENERAL: This is a malnourished, chronically ill-appearing female. SKIN: No rashes, ecchymoses or lesions. Cool and dry. HEAD: Atraumatic. Normocephalic. No temporal or scalp tenderness. EYES: Pupils equal round and reactive. Extraocular motions intact. No scleral icterus. No injection or drainage. ENT: Nose without bleeding, purulent drainage or septal hematoma. Oropharynx is noted with small patches of thrush, mild erythema. No exudate. Uvula midline. Airway patent. NECK: Trachea midline. No JVD or lymphadenopathy. Supple, nontender, no meningeal signs. CARDIOVASCULAR: Regular rate and rhythm without murmurs, gallops, or rubs. RESPIRATORY: Coarse rhonchi, expiratory wheezing. Has a nonproductive cough. GASTROINTESTINAL: Abdomen soft, non-tender, nondistended. No hepato-splenomegaly , or palpable masses. No guarding. MUSCULOSKELETAL: Extremities without clubbing, cyanosis, or edema. No joint tenderness, effusion, or edema noted. No calf tenderness. Negative Homans sign bilaterally. Complaints of pain to palpation of all extremities, no joint abnormalities noted. NEUROLOGICAL: Awake, alert oriented 3. No focal deficits. Speech is clear. Poor historian. Urinary Catheter: No Vascular Central Line Catheter: No A/P Diagnosis: (1) Weakness (2) Falls (3) Malignant neoplasm of both lungs (4) Hypothyroidism (5) Syncope (6) Esophageal cancer Plan: HX OF ESOPHAGEAL CANCER, PRIOR CHEMO AND RADIATION (7) COPD (chronic obstructive pulmonary disease) (8) Cough (9) Dysphagia (10) HTN (hypertension) (11) Non-compliance (12) Polysubstance abuse (13) Anemia (14) Ascending aortic aneurysm Assessment and Plan 71-year-old female, prior history esophageal cancer in 2015 treated with radiation and chemotherapy, failed to follow up for oncologic surveillance. Presented to emergency room with weakness, shortness of breath, pain, weight loss, poor appetite. Found with multiple bilateral pulmonary masses, large mass to the right upper lobe, some other masses containing cavitation, also noted with sclerotic severe compression deformity of what appears to be T6. -Appreciate Dr. Larkin's input, recommends onc input. -Appreciate Dr. Weinstein''s input, recommends GI consult due to dysphagia. May need EGD, and bx can be done to evaluate if esophageal mass. Lung masses likely esophageal mets -CEA level elevated -We will hold Xarelto, patient will need diagnostic workup COPD with chronic bronchitis DuoNeb's 4 times a day and when necessary Tachycardia, initially thought to be due to dehydration. Received IVF, continues tachy. -start low dose Atenolol 12.5 mg po bid Anemia, etiology unclear Iron profile results noted, low iron stores We will check stools for occult blood-pending -HH stable Complaining of dysphagia, prior history with last EGD with dilatation in 2015. -Swallow evaluation results noted, continue regular diet. -GI consult pending Thrush -Nystatin swish and swallow 4 times a day Hypothyroid, has been noncompliant with medications, TSH 19.9 -Continue Synthroid at 50 g daily, needs to follow up as outpatient with PCP for repeat TSH in 6 weeks. Polysubstance abuse, alcohol level 40-stable -Monitor for withdrawal symptoms -Folic acid and thiamine -Continue with Xanax when necessary -Counselled about substance abuse. History of A. fib, currently sinus rhythm, on Xarelto with poor compliance -Continuous cardiac telemetry -Hold Xarelto, patient will need diagnostic workup for lung masses Ascending aortic aneurysm measuring 4.6 cm (previous CT chest measurement 4.5 cm ) -continue to monitor, stable Generalized weakness with falls and possible syncope -Physical therapy for evaluation and treatment SCDs for DVT prophylaxis Protonix for GI prophylaxis Pt. has poor insight into medical problems, non compliant, wants to go home as "nobody is doing anything over the weekend". Discussed need to stay to undergo GI work up and bx if needed. Informed that she's not cleared for discharge and discourage her from signing out AMA. D/W RN D/W Dr. Hunter D/W pt This patient was seen by myself and Dr. Hunter, this note is written on his behalf Problem Qualifiers (1) Falls: Qualified Code: W19.XXXS - Falls, sequela (2) Hypothyroidism: Qualified Code: E03.9 - Hypothyroidism, unspecified type (3) Syncope: Qualified Code: R55 - Syncope, unspecified syncope type (4) COPD (chronic obstructive pulmonary disease): (5) Dysphagia: Qualified Code: R13.10 - Dysphagia, unspecified type (6) HTN (hypertension): Qualified Code: I10 - Essential hypertension (7) Anemia: Qualified Code: D64.9 - Anemia, unspecified type Velma Rosales May 17, 2016 09:15
[2016-05-17] MEDS: PANTOPRAZOLE SOD 40 MG DELAYED RELEASE TAB PO SCH (09:23)
[2016-05-17] MEDS: ALPRAZolam 1 MG TAB PO PRN ×2 (09:23→21:19)
[2016-05-17] MEDS: FOLIC ACID 1 MG TAB PO SCH (09:23)
[2016-05-17] MEDS: NYSTATIN SUSP 500,000 U/5 ML CUP SWISH-SWAL SCH ×4 (09:23→21:18)
[2016-05-17] MEDS: THIAMINE HCL 100 MG TAB PO SCH (09:23)
[2016-05-17] MEDS ORDERED: PILL SPLITTER OTHER PRN (10:15)
--- NOTE | 2016-05-17 10:23 | PD.ONC.PN ---
Subjective Subjective Remarks Afebrile overnight. Patient resting comfortably. She has questions about what GI procedure will entail and if she will have pain. Objective Data Date Time Temp Pulse Resp B/P Pulse Ox O2 Delivery O2 Flow Rate FiO2 05/17/16 09:00 Room Air 05/17/16 08:59 97 05/17/16 08:00 97.5 110 18 124/81 97 113/73 109/79 05/17/16 04:08 98.1 106 16 127/88 98 05/16/16 23:27 97.6 104 16 136/93 97 05/16/16 20:53 98.2 104 16 125/79 95 05/16/16 20:19 106 05/16/16 20:00 Room Air 05/16/16 16:00 97.3 108 16 143/88 97 05/16/16 12:00 98.2 110 16 126/79 97 05/17/16 05/17/16 05/17/16 07:00 15:00 23:00 Intake Total 120 ml Output Total 400 ml Balance -280 ml Result Diagram: 05/17/16 0500 05/15/16 1410 Laboratory Results Laboratory Tests Test 05/16/16 05/17/16 14:25 05:00 Reticulocyte Count 1.1 % Absolute Reticulocyte Count 42.4 MIL/L Iron Level 65 MCG/DL Total Iron Binding Capacity 291 MCG/DL Percent Iron Saturation 22.3 % Ferritin 90 NG/ML Vitamin B12 Level 584 PG/ML White Blood Count 5.1 TH/MM3 Red Blood Count 3.70 MIL/MM3 Hemoglobin 9.6 GM/DL Hematocrit 30.8 % Mean Corpuscular Volume 83.1 FL Mean Corpuscular Hemoglobin 26.0 PG Mean Corpuscular Hemoglobin 31.3 % Concent Red Cell Distribution Width 21.0 % Platelet Count 188 TH/MM3 Mean Platelet Volume 8.4 FL Neutrophils (%) (Auto) 68.0 % Lymphocytes (%) (Auto) 17.4 % Monocytes (%) (Auto) 8.3 % Eosinophils (%) (Auto) 5.1 % Basophils (%) (Auto) 1.2 % Neutrophils # (Auto) 3.5 TH/MM3 Lymphocytes # (Auto) 0.9 TH/MM3 Monocytes # (Auto) 0.4 TH/MM3 Eosinophils # (Auto) 0.3 TH/MM3 Basophils # (Auto) 0.1 TH/MM3 CBC Comment DIFF FINAL Differential Comment Carcinoembryonic Antigen 54.8 NG/ML Administered Medications Medications (Trade) Dose Ordered Sig/Candida Route PRN Reason Start Time Stop Time Status Last Admin Dose Admin Alprazolam (Xanax) 1 mg TID PRN PO ANXIETY 05/15/16 18:45 05/17/16 09:23 Acetaminophen/ Hydrocodone Bitart ([place]send 10-325 Mg) 1 tab Q6HR PRN PO PAIN 1-05/15/16 18:45 05/17/16 05:49 Levothyroxine Sodium (Synthroid) 50 mcg DAILY@0600 PO 05/16/16 06:00 05/17/16 05:49 Nystatin (Mycostatin Liq) 5 ml QID SWISH-SWAL 05/16/16 13:00 05/17/16 09:23 Pantoprazole Sodium (Protonix) 40 mg DAILY PO 05/16/16 12:30 05/17/16 09:23 Folic Acid (Folate) 1 mg DAILY PO 05/16/16 13:00 05/17/16 09:23 Thiamine HCl (Vitamin B1) 100 mg DAILY PO 05/16/16 13:00 05/17/16 09:23 Objective Remarks GENERAL: Middle aged female, sitting up in bed. SKIN: Warm and dry. HEAD: Normocephalic. EYES: No injection or drainage. NECK: Supple, trachea midline. CARDIOVASCULAR: +S1/S2 RESPIRATORY: Breath sounds equal bilaterally. No accessory muscle use. GASTROINTESTINAL: Abdomen soft, non-tender, nondistended. EXTREMITIES: No cyanosis NEUROLOGICAL: awake and alert, normal speech. moving extremities. Assessment/Plan Problem List: (1) Lung mass Status: Acute Plan: 05/17/16: await EGD today. History/Workup: --Multiple lung masses most consistent with metastatic disease. --history of esophageal squamous cell carcinoma treated with radiation and chemotherapy at the end of 2013. --was noncompliant and has not followed up. --February 2016, during one of her ER visits, CT showed pulmonary nodule. left AMA and did not follow up. --now presented with constitutional symptoms and increased shortness of breath. --CT of the chest showed multiple lung nodules, largest in the right upper lobe measured about 5.9 cm. --most likely metastatic esophageal cancer. --Clinically, has dysphagia worse over the last 3-4 months. --CT abdomen and pelvis no mets. --GI consulted EGD pending --if GI w/u neg, can biopsy one of the lung lesions to establish a diagnosis. --if she is confirmed to have metastatic esophageal cancer, this is not a curable disease. Palliative chemotherapy may relieve some of her symptoms and prolong her survival. Assessment 71y/o female with multiple lung masses consistent with metastatic disease, initially presented to the hospital with increased weakness, dysphagia, and frequent falls. h/o Esophageal squamous cell carcinoma treated with radiation with cisplatin, 5- FU in March of 2004. Atrial fibrillation. Tobacco abuse. Chronic obstructive pulmonary disease Hypertension Alcohol abuse. Multiple EGDs with dilatation Hysterectomy. Cartilage removed from bilateral knee Hiatal hernia repair. PEG tube placement and removal . Plan 1. await EGD 2. monitor CBC Attending Statement The exam, history, and the medical decision-making described in the above note were completed with the assistance of the mid-level provider. I reviewed and agree with the findings presented. I attest that I had a [id number] encounter with the patient on the same day, and personally performed and documented my assessment and findings in the medical record. Dysphagia the same. SOB stable. Await EGD and biopsy. If no esophageal mass, will then need to biopsy the lung mass. Claritza Arechiga May 17, 2016 10:23 Eron Weinstein MD May 17, 2016 17:29
[2016-05-17] MEDS: ATENOLOL 25 MG TAB PO SCH ×2 (12:36→21:18)
[2016-05-18] MEDS ORDERED: INSULIN HUMAN REGULAR 1,000 UNITS/10 ML VIAL SQ PRN (00:15)
[2016-05-18] MEDS: LACTATED RINGER'S 1000 ML IV SCH (00:15)
[2016-05-18] MEDS ORDERED: SODIUM CHLORID 0.9% 500 ML IV SCH (00:15)
--- NOTE | 2016-05-18 00:18 | PD.CONS ---
HPI History of Present Illness This is a 71 year old female who complains of dysphagia to both solids and liquids this is gradually progressed over the past several months the patient reports having had a history of esophageal cancer was diagnosed many years ago and was treated with radiation and resolved and has been doing fairly well she does report having had esophageal dilation in the past but can't recall when or who currently she is comfortable in bed denies any heartburn or reflux but reports some nausea and vomiting but denies any abdominal pain denies any melena or hematochezia denies any change in bowel habits she reports being fatigued and tired also complains of shortness of breath and on admission a CT of the chest reveals pulmonary nodules suspicious for metastases [facility] Past Medical History PAST MEDICAL HISTORY 1. 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 2. Atrial fibrillation. 3. Tobacco abuse. 4. Chronic obstructive pulmonary disease 5. Hypertension 6. Alcohol abuse. Past Surgical History PAST SURGICAL HISTORY 1. Multiple EGDs with dilatation 2. Hysterectomy. 3. Cartilage removed from bilateral knee 4. Hiatal hernia repair. 5. PEG tube placement and removal 6. . Coded Allergies: No Known Allergies (Verified , 11/13/15) Medications MEDICATIONS current, 1. Albuterol 2. Nystatin 3. Folic acid. 4. Thiamine. 5. Protonix. 6. Levothyroxine. Family History FAMILY HISTORY She had one daughter but she has no contact with her Social History SOCIAL HISTORY Smoker. She drinks about one pint of alcohol a week. Review of Systems ROS Review of systems Patient denies any headache dizziness blurry vision, denies any chest pain shortness of breath cough fever chills, Denies any palpitations or fatigue denies any polyuria dysuria hematuria, denies any numbness tingling or weakness, denies any skin rash pruritus or jaundice, denies any easy bruising or bleeding tendency, denies any recent change in mood GI Exam Vitals I&O Vital Signs Date Time Temp Pulse Resp B/P Pulse Ox O2 Delivery O2 Flow Rate FiO2 05/17/16 22:00 103/63 05/17/16 21:24 98 21 05/17/16 20:00 97.8 93 20 97/61 98 05/17/16 18:04 104/75 05/17/16 16:00 98.2 90 18 99/65 97 05/17/16 12:00 98.2 114 18 117/78 95 05/17/16 09:00 Room Air 05/17/16 08:59 97 05/17/16 08:00 112 05/17/16 08:00 97.5 110 18 124/81 97 113/73 109/79 05/17/16 04:08 98.1 106 16 127/88 98 I/O 05/17/16 05/17/16 05/17/16 05/18/16 05/18/16 05/18/16 07:00 15:00 23:00 07:00 15:00 23:00 Intake Total 120 ml 12 ml Output Total 400 ml 600 ml Balance -280 ml -588 ml Intake Oral 120 ml IV Total 12 ml Output Urine Total 400 ml 600 ml # Bowel Movements 0 Imaging Last Impressions Tibia/Fibula X-Ray 05/15/16 1446 Signed Impressions: Service Date/Time: Sunday, May 15, 2016 16:13 - CONCLUSION: No acute disease. Jo Raines MD Head CT 05/15/16 1446 Signed Impressions: Service Date/Time: Sunday, May 15, 2016 15:53 - CONCLUSION: Negative for acute traumatic injury. Gerardo Tang MD FACR Foot X-Ray 05/15/16 144 Signed Impressions: Service Date/Time: Sunday, May 15, 2016 16:07 - CONCLUSION: No acute disease. Jo Raines MD Femur X-Ray 05/15/16 1446 Signed Impressions: Service Date/Time: Sunday, May 15, 2016 17:09 - CONCLUSION: 1. No acute fracture. 2. Benign periosteal reaction distal femur. Kory Villa MD Chest X-Ray 05/15/16 1446 Signed Impressions: Service Date/Time: Sunday, May 15, 2016 16:05 - CONCLUSION: Multiple pulmonary masses. These appear grossly stable as compared to the prior plain film of the chest dated February 22, 2016.. Jo Raines MD Abdomen/Pelvis CT 05/15/16 1446 Signed Impressions: Service Date/Time: Sunday, May 15, 2016 15:57 - CONCLUSION: Abnormal lung exam with a irregular 1.3 cm mass identified within the right lower lung. Given the morphology this could represent a small lung cancer in a background setting of chronic interstitial lung disease. If not previously performed recommend CT of the thorax to evaluate for additional lesions. No evidence of metastatic disease to the adrenal glands or liver. Jo Raines MD Pelvis X-Ray 05/15/16 0000 Signed Impressions: Service Date/Time: Sunday, May 15, 2016 17:07 - CONCLUSION: Unremarkable examination of the pelvis. Tito Gonzales MD Chest CT 05/15/16 0000 Signed Impressions: Service Date/Time: Sunday, May 15, 2016 17:57 - CONCLUSION: 1. Multiple bilateral pulmonary masses the largest in the posterior right upper lobe measuring 5.9 x 4.2 cm. Some of these masses contain cavitation. This is likely secondary to metastatic disease. 2. Ascending aortic aneurysm measuring 4.6 cm. 3. Sclerotic severe compression deformity of what appears to be T6. Kory Villa MD Laboratory Test 05/17/16 05:00 White Blood Count 5.1 TH/MM3 Red Blood Count 3.70 MIL/MM3 Hemoglobin 9.6 GM/DL Hematocrit 30.8 % Mean Corpuscular Volume 83.1 FL Mean Corpuscular Hemoglobin 26.0 PG Mean Corpuscular Hemoglobin 31.3 % Concent Red Cell Distribution Width 21.0 % Platelet Count 188 TH/MM3 Mean Platelet Volume 8.4 FL Neutrophils (%) (Auto) 68.0 % Lymphocytes (%) (Auto) 17.4 % Monocytes (%) (Auto) 8.3 % Eosinophils (%) (Auto) 5.1 % Basophils (%) (Auto) 1.2 % Neutrophils # (Auto) 3.5 TH/MM3 Lymphocytes # (Auto) 0.9 TH/MM3 Monocytes # (Auto) 0.4 TH/MM3 Eosinophils # (Auto) 0.3 TH/MM3 Basophils # (Auto) 0.1 TH/MM3 CBC Comment DIFF FINAL Differential Comment Carcinoembryonic Antigen 54.8 NG/ML Physical Examination HEENT: Pupils round and reactive to light; normocephalic; atraumatic; no jaundice. Throat is clear. NECK: Neck is supple, no JVD, no lymphadenopathy. CHEST: Chest is clear to auscultation and percussion. CARDIAC: Regular rate and rhythm with no murmur gallop or rubs. ABDOMEN: Soft, nondistended, nontender; no hepatosplenomegaly; bowel sounds are present in all four quadrants. EXTREMITIES: No clubbing, cyanosis, or edema. SKIN: Normal; no rash; no jaundice. PUBLICATIONS INSPECTOR: No focal deficits; alert and oriented times three. Assessment and Plan Plan ASSESSMENT 1. Multiple lung masses most consistent with metastatic disease. 2. 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 She, however, was noncompliant and has not followed up. With current complaints of dysphagia 3. Proximal atrial fibrillation. 4. Chronic obstructive pulmonary disease 5. Tobacco dependence. 6. Alcohol abuse. Patient is advised an upper endoscopy Agree with current supportive care Monitor labs Iain Castellanos MD May 18, 2016 00:18
[2016-05-18] MEDS: ACETAMINOPHEN/HYDROcodone 325 MG/10 MG TAB PO PRN ×2 (01:51→19:50)
[2016-05-18 04:00] VITALS: BP 126/71; PULSE 81; RESP 16; TEMP 97.9; O2SAT 97
[2016-05-18] MEDS: LEVOTHYROXINE SODIUM 50 MCG TAB PO SCH (05:02)
[2016-05-18] MEDS: ALPRAZolam 1 MG TAB PO PRN ×2 (05:06→19:50)
[2016-05-18] MEDS: RESP: ALBUTEROL 2.5 MG/IPRATROPIUM 0.5 MG NEB (SCH) NEB ×4 (07:27→20:55)
[2016-05-18 08:02] VITALS: PULSE 85
[2016-05-18 08:16] VITALS: BP 106/63; PULSE 92; RESP 18; TEMP 98; O2SAT 96
[2016-05-18] MEDS: ATENOLOL 25 MG TAB PO SCH ×2 (10:02→19:50)
[2016-05-18] MEDS: PANTOPRAZOLE SOD 40 MG DELAYED RELEASE TAB PO SCH (10:02)
[2016-05-18] MEDS: FOLIC ACID 1 MG TAB PO SCH (10:02)
[2016-05-18] MEDS: THIAMINE HCL 100 MG TAB PO SCH (10:03)
[2016-05-18] MEDS: NYSTATIN SUSP 500,000 U/5 ML CUP SWISH-SWAL SCH ×4 (10:03→19:51)
--- NOTE | 2016-05-18 11:49 | HHI.PR ---
Subjective Remarks awake, oriented x 3 feels better c/o gen. pain no cp chronic sob and cough swallowing better, tolerating meals well. staying for EGD Review of system for 10 point system otherwise unremarkable Objective Objective Results - Vital Signs Date Time Temp Pulse Resp B/P Pulse Ox O2 Delivery O2 Flow Rate FiO2 05/18/16 08:16 98.0 92 18 106/63 96 05/18/16 04:00 97.9 81 16 126/71 97 05/17/16 22:00 103/63 05/17/16 21:24 98 21 05/17/16 20:06 92 05/17/16 20:00 97.8 93 20 97/61 98 05/17/16 20:00 Room Air 05/17/16 18:04 104/75 05/17/16 16:00 98.2 90 18 99/65 97 05/17/16 12:00 98.2 114 18 117/78 95 I/O 05/17/16 05/17/16 05/17/16 05/18/16 05/18/16 05/18/16 07:00 15:00 23:00 07:00 15:00 23:00 Intake Total 120 ml 12 ml 0 ml Output Total 400 ml 600 ml Balance -280 ml -588 ml 0 ml Intake Oral 120 ml 0 ml IV Total 12 ml Output Urine Total 400 ml 600 ml # Voids 5 # Bowel Movements 0 Result Diagram: 05/17/16 0500 05/15/16 1410 Imaging Last Impressions Tibia/Fibula X-Ray 05/15/16 144 Signed Impressions: Service Date/Time: Sunday, May 15, 2016 16:13 - CONCLUSION: No acute disease. Jo Raines MD Head CT 05/15/16 144 Signed Impressions: Service Date/Time: Sunday, May 15, 2016 15:53 - CONCLUSION: Negative for acute traumatic injury. Gerardo Tang MD FACR Foot X-Ray 05/15/16 144 Signed Impressions: Service Date/Time: Sunday, May 15, 2016 16:07 - CONCLUSION: No acute disease. Jo Raines MD Femur X-Ray 05/15/16 1446 Signed Impressions: Service Date/Time: Sunday, May 15, 2016 17:09 - CONCLUSION: 1. No acute fracture. 2. Benign periosteal reaction distal femur. Kory Villa MD Chest X-Ray 05/15/16 1446 Signed Impressions: Service Date/Time: Sunday, May 15, 2016 16:05 - CONCLUSION: Multiple pulmonary masses. These appear grossly stable as compared to the prior plain film of the chest dated February 22, 2016.. Jo Raines MD Abdomen/Pelvis CT 05/15/16 1446 Signed Impressions: Service Date/Time: Sunday, May 15, 2016 15:57 - CONCLUSION: Abnormal lung exam with a irregular 1.3 cm mass identified within the right lower lung. Given the morphology this could represent a small lung cancer in a background setting of chronic interstitial lung disease. If not previously performed recommend CT of the thorax to evaluate for additional lesions. No evidence of metastatic disease to the adrenal glands or liver. Jo Raines MD Pelvis X-Ray 05/15/16 0000 Signed Impressions: Service Date/Time: Sunday, May 15, 2016 17:07 - CONCLUSION: Unremarkable examination of the pelvis. Tito Gonzales MD Chest CT 05/15/16 0000 Signed Impressions: Service Date/Time: Sunday, May 15, 2016 17:57 - CONCLUSION: 1. Multiple bilateral pulmonary masses the largest in the posterior right upper lobe measuring 5.9 x 4.2 cm. Some of these masses contain cavitation. This is likely secondary to metastatic disease. 2. Ascending aortic aneurysm measuring 4.6 cm. 3. Sclerotic severe compression deformity of what appears to be T6. Kory Villa MD Physical Exam Physical Exam GENERAL: This is a malnourished, chronically ill-appearing female. SKIN: No rashes, ecchymoses or lesions. Cool and dry. HEAD: Atraumatic. Normocephalic. No temporal or scalp tenderness. EYES: Pupils equal round and reactive. Extraocular motions intact. No scleral icterus. No injection or drainage. ENT: Airway patent. NECK: Trachea midline. Supple, nontender. CARDIOVASCULAR: Regular rate and rhythm without murmurs, gallops, or rubs. RESPIRATORY: Coarse rhonchi, expiratory wheezing. Has a nonproductive cough. GASTROINTESTINAL: Abdomen soft, non-tender, nondistended. No hepato-splenomegaly , or palpable masses. No guarding. MUSCULOSKELETAL: Extremities without clubbing, cyanosis, or edema. No calf tenderness. Negative Homans sign bilaterally. Complaints of pain to palpation of all extremities, no joint abnormalities noted. NEUROLOGICAL: Awake, alert oriented 3. No focal deficits. Speech is clear. Poor historian. Urinary Catheter: No Vascular Central Line Catheter: No A/P Assessment and Plan (1) Weakness (2) Falls (3) Malignant neoplasm of both lungs (4) Hypothyroidism (5) Syncope (6) Esophageal cancer HX OF ESOPHAGEAL CANCER, PRIOR CHEMO AND RADIATION (7) COPD (chronic obstructive pulmonary disease) (8) Cough (9) Dysphagia (10) HTN (hypertension) (11) Non-compliance (12) Polysubstance abuse (13) Anemia (14) Ascending aortic aneurysm Plan 71-year-old female, prior history esophageal cancer in 2014 treated with radiation and chemotherapy, failed to follow up for oncologic surveillance. Presented to emergency room with weakness, shortness of breath, pain, weight loss, poor appetite. Found with multiple bilateral pulmonary masses, large mass to the right upper lobe, some other masses containing cavitation, also noted with sclerotic severe compression deformity of what appears to be T6. -Appreciate Dr. Larkin's input, recommends onc input. -Appreciate Dr. Weinstein''s input, recommends GI consult due to dysphagia. May need EGD, and bx can be done to evaluate if esophageal mass. Lung masses likely esophageal mets -CEA level elevated -We will hold Xarelto, patient will need diagnostic workup COPD with chronic bronchitis DuoNeb's 4 times a day and when necessary Tachycardia, initially thought to be due to dehydration. Received IVF, continues tachy. -start low dose Atenolol 12.5 mg po bid Anemia, etiology unclear Iron profile results noted, low iron stores We will check stools for occult blood-pending -HH stable Complaining of dysphagia, prior history with last EGD with dilatation in 2016. -Swallow evaluation results noted, continue regular diet. -GI consult appreciated Thrush -Nystatin swish and swallow 4 times a day Hypothyroid, has been noncompliant with medications, TSH 19.9 -Continue Synthroid at 50 g daily, needs to follow up as outpatient with PCP for repeat TSH in 6 weeks. Polysubstance abuse, alcohol level 40-stable -Monitor for withdrawal symptoms -Folic acid and thiamine -Continue with Xanax when necessary -Counselled about substance abuse. History of A. fib, currently sinus rhythm, on Xarelto with poor compliance -Continuous cardiac telemetry -Hold Xarelto, patient will need diagnostic workup for lung masses Ascending aortic aneurysm measuring 4.6 cm (previous CT chest measurement 4.5 cm ) -continue to monitor, stable Generalized weakness with falls and possible syncope -Physical therapy for evaluation and treatment SCDs for DVT prophylaxis Protonix for GI prophylaxis Pt. has poor insight into medical problems, non compliant. D/W pt Pedrito Hunter MD May 18, 2016 11:49
[2016-05-18 12:21] VITALS: BP 133/80; PULSE 90; RESP 18; TEMP 98; O2SAT 97
--- NOTE | 2016-05-18 13:49 | HHI.GIFU ---
Subjective Remarks Patient is resting in bed, inquiring about food, feels okay, denies abdominal pain ([place]) Objective Vitals I&O Vital Signs Date Time Temp Pulse Resp B/P Pulse Ox O2 Delivery O2 Flow Rate FiO2 05/18/16 12:21 98.0 90 18 133/80 97 05/18/16 08:16 98.0 92 18 106/63 96 05/18/16 04:00 97.9 81 16 126/71 97 05/17/16 22:00 103/63 05/17/16 21:24 98 21 05/17/16 20:06 92 05/17/16 20:00 97.8 93 20 97/61 98 05/17/16 20:00 Room Air 05/17/16 18:04 104/75 05/17/16 16:00 98.2 90 18 99/65 97 I/O 05/17/16 05/17/16 05/17/16 05/18/16 05/18/16 05/18/16 07:00 15:00 23:00 07:00 15:00 23:00 Intake Total 120 ml 12 ml 0 ml Output Total 400 ml 600 ml Balance -280 ml -588 ml 0 ml Intake Oral 120 ml 0 ml IV Total 12 ml Output Urine Total 400 ml 600 ml # Voids 5 # Bowel Movements 0 Laboratory Laboratory Tests Test 05/16/16 05/17/16 14:25 05:00 Reticulocyte Count 1.1 % Absolute Reticulocyte Count 42.4 MIL/L Iron Level 65 MCG/DL Total Iron Binding Capacity 291 MCG/DL Percent Iron Saturation 22.3 % Ferritin 90 NG/ML Vitamin B12 Level 584 PG/ML White Blood Count 5.1 TH/MM3 Red Blood Count 3.70 MIL/MM3 Hemoglobin 9.6 GM/DL Hematocrit 30.8 % Mean Corpuscular Volume 83.1 FL Mean Corpuscular Hemoglobin 26.0 PG Mean Corpuscular Hemoglobin 31.3 % Concent Red Cell Distribution Width 21.0 % Platelet Count 188 TH/MM3 Mean Platelet Volume 8.4 FL Neutrophils (%) (Auto) 68.0 % Lymphocytes (%) (Auto) 17.4 % Monocytes (%) (Auto) 8.3 % Eosinophils (%) (Auto) 5.1 % Basophils (%) (Auto) 1.2 % Neutrophils # (Auto) 3.5 TH/MM3 Lymphocytes # (Auto) 0.9 TH/MM3 Monocytes # (Auto) 0.4 TH/MM3 Eosinophils # (Auto) 0.3 TH/MM3 Basophils # (Auto) 0.1 TH/MM3 CBC Comment DIFF FINAL Differential Comment Carcinoembryonic Antigen 54.8 NG/ML Imaging Last Impressions Tibia/Fibula X-Ray 05/15/16 1446 Signed Impressions: Service Date/Time: Sunday, May 15, 2016 16:13 - CONCLUSION: No acute disease. Jo Raines MD Head CT 05/15/16 1446 Signed Impressions: Service Date/Time: Sunday, May 15, 2016 15:53 - CONCLUSION: Negative for acute traumatic injury. Gerardo Tang MD FACR Foot X-Ray 05/15/16 144 Signed Impressions: Service Date/Time: Sunday, May 15, 2016 16:07 - CONCLUSION: No acute disease. Jo Raines MD Femur X-Ray 05/15/16 144 Signed Impressions: Service Date/Time: Sunday, May 15, 2016 17:09 - CONCLUSION: 1. No acute fracture. 2. Benign periosteal reaction distal femur. Kory Villa MD Chest X-Ray 05/15/16 144 Signed Impressions: Service Date/Time: Sunday, May 15, 2016 16:05 - CONCLUSION: Multiple pulmonary masses. These appear grossly stable as compared to the prior plain film of the chest dated February 22, 2016.. Jo Raines MD Abdomen/Pelvis CT 05/15/16 1446 Signed Impressions: Service Date/Time: Sunday, May 15, 2016 15:57 - CONCLUSION: Abnormal lung exam with a irregular 1.3 cm mass identified within the right lower lung. Given the morphology this could represent a small lung cancer in a background setting of chronic interstitial lung disease. If not previously performed recommend CT of the thorax to evaluate for additional lesions. No evidence of metastatic disease to the adrenal glands or liver. Jo Raines MD Pelvis X-Ray 05/15/16 0000 Signed Impressions: Service Date/Time: Sunday, May 15, 2016 17:07 - CONCLUSION: Unremarkable examination of the pelvis. Tito Gonzales MD Chest CT 05/15/16 0000 Signed Impressions: Service Date/Time: Sunday, May 15, 2016 17:57 - CONCLUSION: 1. Multiple bilateral pulmonary masses the largest in the posterior right upper lobe measuring 5.9 x 4.2 cm. Some of these masses contain cavitation. This is likely secondary to metastatic disease. 2. Ascending aortic aneurysm measuring 4.6 cm. 3. Sclerotic severe compression deformity of what appears to be T6. Kory Villa MD Physical Exam HEENT: normocephalic; atraumatic; no jaundice. NECK: Neck is supple, no JVD, no lymphadenopathy. CHEST: Coarse rhonchi, expiratory wheezing. CARDIAC: Regular rate and rhythm with no murmur gallop or rubs. ABDOMEN: Soft, nondistended, nontender; no hepatosplenomegaly; bowel sounds are present in all four quadrants. EXTREMITIES: No clubbing, cyanosis, or edema. SKIN: Normal; no rash; no jaundice. POWERTRAIN DESIGN ENGINEER: No focal deficits; alert and oriented times three. ([place]) Assessment and Plan Plan ASSESSMENT 1. Multiple lung masses most consistent with metastatic disease. GS, oncology on the case 2. 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 She, however, was noncompliant and has not followed up. With current complaints of dysphagia 3. Proximal atrial fibrillation. 4. Chronic obstructive pulmonary disease 5. Tobacco dependence. 6. Alcohol abuse. Plan: - Soft diet - EGD on Friday - Obtain consents - NPO Friday hi - , Oncology on the case - Supportive care - Patient seen and examined by Dr. Castellanos and myself and this note is written on his behalf. ([place]) Physician Comments Patient seen and examined Agree with above Continue with current supportive care Monitor labs EGD with possible dilatation on Friday (Iain Castellanos MD) [place] May 18, 2016 13:49 Iain Castellanos MD May 18, 2016 20:05
[2016-05-18 16:17] VITALS: BP 104/62; PULSE 120; RESP 18; TEMP 98; O2SAT 98
[2016-05-18 20:00] VITALS: BP 110/66; PULSE 103; PULSE 91; RESP 18; TEMP 98.5; O2SAT 96
[2016-05-19] VITALS (8 sets, daily range): BP systolic 95–125; BP diastolic 54–75; PULSE 69–93; RESP 18; TEMP 97.7–99.1; O2SAT 96–100
[2016-05-19] MEDS: ACETAMINOPHEN/HYDROcodone 325 MG/10 MG TAB PO PRN ×2 (02:45→18:31)
[2016-05-19] MEDS: LEVOTHYROXINE SODIUM 50 MCG TAB PO SCH (06:36)
[2016-05-19] MEDS: RESP: ALBUTEROL 2.5 MG/IPRATROPIUM 0.5 MG NEB (SCH) NEB ×4 (07:18→20:13)
[2016-05-19] MEDS: NYSTATIN SUSP 500,000 U/5 ML CUP SWISH-SWAL SCH ×4 (09:00→21:33)
[2016-05-19] MEDS: PANTOPRAZOLE SOD 40 MG DELAYED RELEASE TAB PO SCH (09:08)
[2016-05-19] MEDS: FOLIC ACID 1 MG TAB PO SCH (09:08)
[2016-05-19] MEDS: ATENOLOL 25 MG TAB PO SCH ×2 (09:08→21:34)
[2016-05-19] MEDS: THIAMINE HCL 100 MG TAB PO SCH (09:08)
--- NOTE | 2016-05-19 11:34 | HHI.PR ---
Subjective Remarks awake, oriented x 3 feels better c/o gen. pain no cp chronic sob and cough swallowing better, tolerating meals well. Review of system for 10 point system otherwise unremarkable Objective Objective Results - Vital Signs Date Time Temp Pulse Resp B/P Pulse Ox O2 Delivery O2 Flow Rate FiO2 05/19/16 08:11 98.1 87 18 125/75 97 05/19/16 04:00 98.1 80 18 116/70 96 05/19/16 00:00 98.4 88 18 107/64 96 05/18/16 20:00 98.5 91 18 110/66 96 05/18/16 20:00 96 Room Air 05/18/16 20:00 103 05/18/16 16:17 98.0 120 18 104/62 98 05/18/16 12:21 98.0 90 18 133/80 97 I/O 05/18/16 05/18/16 05/18/16 05/19/16 05/19/16 05/19/16 07:00 15:00 23:00 07:00 15:00 23:00 Intake Total 0 ml 362 ml 240 ml 240 ml Output Total 1600 ml 200 ml 600 ml Balance 0 ml -1238 ml 40 ml -360 ml Intake Oral 0 ml 360 ml 240 ml 240 ml IV Total 2 ml Output Urine Total 1600 ml 200 ml 600 ml # Voids 5 # Bowel Movements 1 0 0 Result Diagram: 05/17/16 0500 05/15/16 1410 Imaging Last Impressions Tibia/Fibula X-Ray 05/15/16 1446 Signed Impressions: Service Date/Time: Sunday, May 15, 2016 16:13 - CONCLUSION: No acute disease. Jo Raines MD Head CT 05/15/16 144 Signed Impressions: Service Date/Time: Sunday, May 15, 2016 15:53 - CONCLUSION: Negative for acute traumatic injury. Gerardo Tang MD FACR Foot X-Ray 05/15/16 144 Signed Impressions: Service Date/Time: Sunday, May 15, 2016 16:07 - CONCLUSION: No acute disease. Jo Raines MD Femur X-Ray 05/15/16 1446 Signed Impressions: Service Date/Time: Sunday, May 15, 2016 17:09 - CONCLUSION: 1. No acute fracture. 2. Benign periosteal reaction distal femur. Kory Villa MD Chest X-Ray 05/15/16 1446 Signed Impressions: Service Date/Time: Sunday, May 15, 2016 16:05 - CONCLUSION: Multiple pulmonary masses. These appear grossly stable as compared to the prior plain film of the chest dated February 22, 2016.. Jo Raines MD Abdomen/Pelvis CT 05/15/16 1446 Signed Impressions: Service Date/Time: Sunday, May 15, 2016 15:57 - CONCLUSION: Abnormal lung exam with a irregular 1.3 cm mass identified within the right lower lung. Given the morphology this could represent a small lung cancer in a background setting of chronic interstitial lung disease. If not previously performed recommend CT of the thorax to evaluate for additional lesions. No evidence of metastatic disease to the adrenal glands or liver. Jo Raines MD Pelvis X-Ray 05/15/16 0000 Signed Impressions: Service Date/Time: Sunday, May 15, 2016 17:07 - CONCLUSION: Unremarkable examination of the pelvis. Tito Gonzales MD Chest CT 05/15/16 0000 Signed Impressions: Service Date/Time: Sunday, May 15, 2016 17:57 - CONCLUSION: 1. Multiple bilateral pulmonary masses the largest in the posterior right upper lobe measuring 5.9 x 4.2 cm. Some of these masses contain cavitation. This is likely secondary to metastatic disease. 2. Ascending aortic aneurysm measuring 4.6 cm. 3. Sclerotic severe compression deformity of what appears to be T6. Kory Villa MD Physical Exam Physical Exam GENERAL: This is a malnourished, chronically ill-appearing female. SKIN: No rashes, ecchymoses or lesions. Cool and dry. HEAD: Atraumatic. Normocephalic. No temporal or scalp tenderness. EYES: Pupils equal round and reactive. Extraocular motions intact. No scleral icterus. No injection or drainage. ENT: Airway patent. NECK: Trachea midline. Supple, nontender. CARDIOVASCULAR: Regular rate and rhythm without murmurs, gallops, or rubs. RESPIRATORY: Coarse rhonchi, expiratory wheezing. Has a nonproductive cough. GASTROINTESTINAL: Abdomen soft, non-tender, nondistended. No hepato-splenomegaly , or palpable masses. No guarding. MUSCULOSKELETAL: Extremities without clubbing, cyanosis, or edema. No calf tenderness. Negative Homans sign bilaterally. Complaints of pain to palpation of all extremities, no joint abnormalities noted. NEUROLOGICAL: Awake, alert oriented 3. No focal deficits. Speech is clear. Poor historian. Urinary Catheter: No Vascular Central Line Catheter: No A/P Assessment and Plan (1) Weakness (2) Falls (3) Malignant neoplasm of both lungs (4) Hypothyroidism (5) Syncope (6) Esophageal cancer HX OF ESOPHAGEAL CANCER, PRIOR CHEMO AND RADIATION (7) COPD (chronic obstructive pulmonary disease) (8) Cough (9) Dysphagia (10) HTN (hypertension) (11) Non-compliance (12) Polysubstance abuse (13) Anemia (14) Ascending aortic aneurysm Plan 71-year-old female, prior history esophageal cancer in 2014 treated with radiation and chemotherapy, failed to follow up for oncologic surveillance. Presented to emergency room with weakness, shortness of breath, pain, weight loss, poor appetite. Found with multiple bilateral pulmonary masses, large mass to the right upper lobe, some other masses containing cavitation, also noted with sclerotic severe compression deformity of what appears to be T6. -Appreciate Dr. Larkin's input, recommends onc input. -Appreciate Dr. Weinstein''s input, recommends GI consult due to dysphagia. NEED EGD , and bx can be done to evaluate if esophageal mass. Lung masses likely esophageal mets -CEA level elevated -We will hold Xarelto, patient will need diagnostic workup COPD with chronic bronchitis DuoNeb's 4 times a day and when necessary Tachycardia, initially thought to be due to dehydration. Received IVF, continues tachy. -start low dose Atenolol 12.5 mg po bid, now better Anemia, etiology unclear Iron profile results noted, low iron stores We will check stools for occult blood-pending -HH stable Complaining of dysphagia, prior history with last EGD with dilatation in 2016. -Swallow evaluation results noted, continue regular diet. -GI consult appreciated Thrush -Nystatin swish and swallow 4 times a day Hypothyroid, has been noncompliant with medications, TSH 19.9 -Continue Synthroid at 50 g daily, needs to follow up as outpatient with PCP for repeat TSH in 6 weeks. Polysubstance abuse, alcohol level 40-stable -Monitor for withdrawal symptoms -Folic acid and thiamine -Continue with Xanax when necessary -Counselled about substance abuse. History of A. fib, currently sinus rhythm, on Xarelto with poor compliance -Continuous cardiac telemetry -Hold Xarelto, patient will need diagnostic workup for lung masses Ascending aortic aneurysm measuring 4.6 cm (previous CT chest measurement 4.5 cm ) -continue to monitor, stable Generalized weakness with falls and possible syncope -Physical therapy for evaluation and treatment SCDs for DVT prophylaxis Protonix for GI prophylaxis Pt. has poor insight into medical problems, non compliant. D/W pt Pedrito Hunter MD May 19, 2016 11:34
--- NOTE | 2016-05-19 21:06 | HHI.GIFU ---
Subjective Remarks Patient doing well no new complaints Objective Vitals I&O Vital Signs Date Time Temp Pulse Resp B/P Pulse Ox O2 Delivery O2 Flow Rate FiO2 05/19/16 16:40 99.1 93 18 116/69 99 05/19/16 12:23 98.3 85 18 95/54 100 05/19/16 08:45 Room Air 05/19/16 08:25 69 05/19/16 08:11 98.1 87 18 125/75 97 05/19/16 04:00 98.1 80 18 116/70 96 05/19/16 00:00 98.4 88 18 107/64 96 I/O 05/18/16 05/18/16 05/18/16 05/19/16 05/19/16 05/19/16 07:00 15:00 23:00 07:00 15:00 23:00 Intake Total 0 ml 362 ml 240 ml 240 ml 840 ml Output Total 1600 ml 200 ml 600 ml 400 ml Balance 0 ml -1238 ml 40 ml -360 ml 440 ml Intake Oral 0 ml 360 ml 240 ml 240 ml 840 ml IV Total 2 ml Output Urine Total 1600 ml 200 ml 600 ml 400 ml # Voids 5 # Bowel Movements 1 0 0 0 Physical Exam CHEST: Coarse rhonchi, expiratory wheezing. CARDIAC: Regular rate and rhythm with no murmur gallop or rubs. ABDOMEN: Soft, nondistended, nontender; no hepatosplenomegaly; bowel sounds are present in all four quadrants. EXTREMITIES: No clubbing, cyanosis, or edema. SKIN: Normal; no rash; no jaundice. 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 Assessment and Plan Plan ASSESSMENT 1. Multiple lung masses most consistent with metastatic disease. GS, oncology on the case 2. 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 She, however, was noncompliant and has not followed up. With current complaints of dysphagia 3. Proximal atrial fibrillation. 4. Chronic obstructive pulmonary disease 5. Tobacco dependence. 6. Alcohol abuse. Plan: - Soft diet - EGD with possible dilation tomorrow - Obtain consents - NPO Friday mn - GS, Oncology on the case - Supportive care Iain Castellanos MD May 19, 2016 21:06
[2016-05-19] MEDS: ALPRAZolam 1 MG TAB PO PRN (21:34)
[2016-05-20] VITALS (9 sets, daily range): BP systolic 107–138; BP diastolic 61–88; PULSE 73–85; RESP 16–20; TEMP 97.1–98.4; O2SAT 95–97
[2016-05-20] MEDS: LACTATED RINGER'S 1000 ML IV SCH (00:15)
[2016-05-20] MEDS: LEVOTHYROXINE SODIUM 50 MCG TAB PO SCH (05:04)
[2016-05-20] MEDS: RESP: ALBUTEROL 2.5 MG/IPRATROPIUM 0.5 MG NEB (SCH) NEB ×2 (08:01→12:04)
[2016-05-20] MEDS: PANTOPRAZOLE SOD 40 MG DELAYED RELEASE TAB PO SCH (08:21)
[2016-05-20] MEDS: FOLIC ACID 1 MG TAB PO SCH (08:21)
[2016-05-20] MEDS: THIAMINE HCL 100 MG TAB PO SCH (08:21)
[2016-05-20] MEDS: NYSTATIN SUSP 500,000 U/5 ML CUP SWISH-SWAL SCH ×4 (08:21→21:43)
[2016-05-20] MEDS: ATENOLOL 25 MG TAB PO SCH ×2 (08:21→21:43)
[2016-05-20] MEDS: ACETAMINOPHEN/HYDROcodone 325 MG/10 MG TAB PO PRN ×2 (08:24→15:03)
--- NOTE | 2016-05-20 11:44 | RADRPT ---
EXAM DATE/TIME: 05/20/2016 10:40 [facility] COMPARISON: CT THORAX W/O CONTRAST, May 15, 2016, 17:57. INDICATIONS: Dysphagia, difficulty swallowing pills and solids, history of esophageal cancer treated with radiatio n and chemo two and a half years ago, had upper endoscopy today FLUORO TIME: 3.0 minutes IMAGE COUNT: 30 CONTRAST: 1. Liquid E-Z Paque Barium Sulfate (60% w/v, 41% w.w) MEDICAL HISTORY: Carcinoma, esophageal. Bilateral lung masses SURGICAL HISTORY: None. ENCOUNTER: Initial ACUITY: >1 year PAIN SCORE: 0/10 LOCATION: Bilateral esophagus FINDINGS: Limited barium swallow and upper GI was performed. CT scan had shown multiple cavitary lesions. Visualization of the upper cervical esophagus reveals no aspiration or stricture. Mid and distal eso phagus shows no anatomic obstruction. Minimal mucosal irregularity is seen in mid esophagusThere is moderate dysmotility present. Gastroesophageal junction is unremarkable. Limited visualization of the stomach, duodenum and cecum reveals no evidence for ulceration. I do not see evidence for a fixed obstruction in the esophagus. I do not see aspiration on limited v isualization of cervical esophagus. The site of apparent primary is not visualized. There is very m inimal mucosal irregularity in the mid thoracic esophagus. CONCLUSION: 1. I do not see evidence for a fixed obstruction. 2. Minimal irregularity in the mid esophagus that could be site of primary. 3. I have no prior studies for comparison. 4. There is no aspiration. Gerardo Tang MD FACR on May 20, 2016 at 11:32 Board Certified Radiologist. This report was verified electronically.
--- NOTE | 2016-05-20 12:03 | HHI.PR ---
Subjective Remarks S/P EGD with dilatation 05/20 wants to eat solid food wheezing, mild cough no cp no sob afebrile angry about diet Objective Objective Results - Vital Signs Date Time Temp Pulse Resp B/P Pulse Ox O2 Delivery O2 Flow Rate FiO2 05/20/16 10:05 80 16 112/63 98 05/20/16 09:58 78 16 127/67 98 05/20/16 09:50 98.5 85 16 113/71 98 05/20/16 08:40 Room Air 05/20/16 08:40 80 05/20/16 08:04 96 21 05/20/16 08:00 97.5 83 18 107/61 95 05/20/16 04:00 98.1 82 16 138/84 97 05/20/16 00:00 97.1 83 18 127/80 96 05/19/16 20:40 Room Air 05/19/16 20:00 97.7 86 18 121/71 99 05/19/16 19:52 75 05/19/16 16:40 99.1 93 18 116/69 99 05/19/16 12:23 98.3 85 18 95/54 100 I/O 05/19/16 05/19/16 05/19/16 05/20/16 05/20/16 05/20/16 07:00 15:00 23:00 07:00 15:00 23:00 Intake Total 240 ml 840 ml 240 ml 240 ml 28 ml Output Total 600 ml 400 ml 500 ml 600 ml Balance -360 ml 440 ml -260 ml -360 ml 28 ml Intake Oral 240 ml 840 ml 240 ml 240 ml Other 28 ml Output Urine Total 600 ml 400 ml 500 ml 600 ml # Bowel Movements 0 0 0 0 Result Diagram: 05/17/16 0500 Imaging Last Impressions Tibia/Fibula X-Ray 05/15/16 1446 Signed Impressions: Service Date/Time: Sunday, May 15, 2016 16:13 - CONCLUSION: No acute disease. Jo Raines MD Head CT 05/15/16 144 Signed Impressions: Service Date/Time: Sunday, May 15, 2016 15:53 - CONCLUSION: Negative for acute traumatic injury. Gerardo Tang MD FACR Foot X-Ray 05/15/161445 Signed Impressions: Service Date/Time: Sunday, May 15, 2016 16:07 - CONCLUSION: No acute disease. Jo Raines MD Femur X-Ray 05/15/16 1446 Signed Impressions: Service Date/Time: Sunday, May 15, 2016 17:09 - CONCLUSION: 1. No acute fracture. 2. Benign periosteal reaction distal femur. Kory Villa MD Chest X-Ray 05/15/16 1446 Signed Impressions: Service Date/Time: Sunday, May 15, 2016 16:05 - CONCLUSION: Multiple pulmonary masses. These appear grossly stable as compared to the prior plain film of the chest dated February 22, 2016.. Jo Raines MD Abdomen/Pelvis CT 05/15/16 1446 Signed Impressions: Service Date/Time: Sunday, May 15, 2016 15:57 - CONCLUSION: Abnormal lung exam with a irregular 1.3 cm mass identified within the right lower lung. Given the morphology this could represent a small lung cancer in a background setting of chronic interstitial lung disease. If not previously performed recommend CT of the thorax to evaluate for additional lesions. No evidence of metastatic disease to the adrenal glands or liver. Jo Raines MD Pelvis X-Ray 05/15/16 0000 Signed Impressions: Service Date/Time: Sunday, May 15, 2016 17:07 - CONCLUSION: Unremarkable examination of the pelvis. Tito Gonzales MD Chest CT 05/15/16 0000 Signed Impressions: Service Date/Time: Sunday, May 15, 2016 17:57 - CONCLUSION: 1. Multiple bilateral pulmonary masses the largest in the posterior right upper lobe measuring 5.9 x 4.2 cm. Some of these masses contain cavitation. This is likely secondary to metastatic disease. 2. Ascending aortic aneurysm measuring 4.6 cm. 3. Sclerotic severe compression deformity of what appears to be T6. Kory Villa MD ROS General: No: Fatigue, Weakness HEENT: No: Sore Throat, Dysphagia Cardiac: No: Chest Pain, Edema, Palpitations Pulmonary: Cough, SOB, Wheezing GI: No: Abdominal Pain, BM, Diarrhea, N/V /BUDGET DIRECTOR: No: Dysuria, Urgency Neuro/MS: No: Lightheaded, Confusion Psych: No: Anxiety, Depression Skin: No: Itching, Rash Physical Exam Physical Exam GENERAL: This is a malnourished, chronically ill-appearing female. SKIN: No rashes, ecchymoses or lesions. Cool and dry. HEAD: Atraumatic. Normocephalic. No temporal or scalp tenderness. EYES: Pupils equal round and reactive. Extraocular motions intact. No scleral icterus. No injection or drainage. ENT: Nose without bleeding, purulent drainage or septal hematoma. Oropharynx is noted with small patches of thrush, mild erythema. No exudate. Uvula midline. Airway patent. NECK: Trachea midline. No JVD or lymphadenopathy. Supple, nontender, no meningeal signs. CARDIOVASCULAR: Regular rate and rhythm without murmurs, gallops, or rubs. RESPIRATORY: exp. wheeze GASTROINTESTINAL: Abdomen soft, non-tender, nondistended. No hepato-splenomegaly , or palpable masses. No guarding. MUSCULOSKELETAL: Extremities without clubbing, cyanosis, or edema. No joint tenderness, effusion, or edema noted. No calf tenderness. Negative Homans sign bilaterally. Complaints of pain to palpation of all extremities, no joint abnormalities noted. NEUROLOGICAL: Awake, alert oriented 3. No focal deficits. Speech is clear. Poor historian. Urinary Catheter: No Vascular Central Line Catheter: No A/P Diagnosis: (1) Weakness (2) Falls (3) Malignant neoplasm of both lungs (4) Hypothyroidism (5) Syncope (6) Esophageal cancer Plan: HX OF ESOPHAGEAL CANCER, PRIOR CHEMO AND RADIATION (7) COPD (chronic obstructive pulmonary disease) (8) Cough (9) Dysphagia (10) HTN (hypertension) (11) Non-compliance (12) Polysubstance abuse (13) Anemia (14) Ascending aortic aneurysm Assessment and Plan 71-year-old female, prior history esophageal cancer in 2015 treated with radiation and chemotherapy, failed to follow up for oncologic surveillance. Presented to emergency room with weakness, shortness of breath, pain, weight loss, poor appetite. Found with multiple bilateral pulmonary masses, large mass to the right upper lobe, some other masses containing cavitation, also noted with sclerotic severe compression deformity of what appears to be T6. -Appreciate Dr. Larkin's input, recommends onc input. -Appreciate Dr. Weinstein''s input, recommends GI consult due to dysphagia. May need EGD, and bx can be done to evaluate if esophageal mass. Lung masses likely esophageal mets -CEA level elevated COPD with chronic bronchitis DuoNeb's 4 times a day and when necessary Tachycardia, initially thought to be due to dehydration. Improved -continue low dose Atenolol 12.5 mg po bid Anemia, etiology unclear Iron profile results noted, low iron stores We will check stools for occult blood-pending -HH stable Complaining of dysphagia, prior history with last EGD with dilatation in 2015. -Swallow evaluation results noted, continue regular diet. -GI input appreciated -S/P EGD with dilatation 05/20 -Barium swallow done today, esophageal irregularity, no obstruction -follow biopsy findings Thrush -Nystatin swish and swallow 4 times a day Hypothyroid, has been noncompliant with medications, TSH 19.9 -Continue Synthroid at 50 g daily, needs to follow up as outpatient with PCP for repeat TSH in 6 weeks. Polysubstance abuse, alcohol level 40-stable -Monitor for withdrawal symptoms -Folic acid and thiamine -Continue with Xanax when necessary -Counselled about substance abuse. History of A. fib, currently sinus rhythm, on Xarelto with poor compliance -Continuous cardiac telemetry -Continue to hold Xarelto, may need more dx work up if EGD negative Ascending aortic aneurysm measuring 4.6 cm (previous CT chest measurement 4.5 cm ) -continue to monitor, stable Generalized weakness with falls and possible syncope -Physical therapy for evaluation and treatment SCDs for DVT prophylaxis Protonix for GI prophylaxis continue with above f/u EGD bx results D/W RN D/W Dr. Hunter D/W pt This patient was seen by myself and Dr. Hunter, this note is written on his behalf Problem Qualifiers (1) Falls: Qualified Code: W19.XXXS - Falls, sequela (2) Hypothyroidism: Qualified Code: E03.9 - Hypothyroidism, unspecified type (3) Syncope: Qualified Code: R55 - Syncope, unspecified syncope type (4) COPD (chronic obstructive pulmonary disease): (5) Dysphagia: Qualified Code: R13.10 - Dysphagia, unspecified type (6) HTN (hypertension): Qualified Code: I10 - Essential hypertension (7) Anemia: Qualified Code: D64.9 - Anemia, unspecified type Velma Rosales May 20, 2016 12:03
[2016-05-20] MEDS ORDERED: PROPOFOL 200 MG/20 ML AMP IV ONE (12:25)
--- NOTE | 2016-05-20 14:52 | PD.ONC.PN ---
Subjective Subjective Remarks Afebrile overnight. Patient resting comfortably. She is annoyed they changed her diet status. She tolerated EGD and barium swallow today. Objective Data Date Time Temp Pulse Resp B/P Pulse Ox O2 Delivery O2 Flow Rate FiO2 05/20/16 12:00 97.6 75 18 134/70 97 05/20/16 10:05 80 16 112/63 98 05/20/16 09:58 78 16 127/67 98 05/20/16 09:50 98.5 85 16 113/71 98 05/20/16 08:40 Room Air 05/20/16 08:40 80 05/20/16 08:04 96 21 05/20/16 08:00 97.5 83 18 107/61 95 05/20/16 04:00 98.1 82 16 138/84 97 05/20/16 00:00 97.1 83 18 127/80 96 05/19/16 20:40 Room Air 05/19/16 20:00 97.7 86 18 121/71 99 05/19/16 19:52 75 05/19/16 16:40 99.1 93 18 116/69 99 05/20/16 05/20/16 05/20/16 07:00 15:00 23:00 Intake Total 240 ml 28 ml Output Total 600 ml Balance -360 ml 28 ml Result Diagram: 05/17/16 0500 Administered Medications Medications (Trade) Dose Ordered Sig/Candida Route PRN Reason Start Time Stop Time Status Last Admin Dose Admin Alprazolam (Xanax) 1 mg TID PRN PO ANXIETY 05/15/16 18:45 05/19/16 21:34 Acetaminophen/ Hydrocodone Bitart ([place] 10-325 Mg) 1 tab Q6HR PRN PO PAIN 1-10 05/15/16 18:45 05/20/16 08:24 Levothyroxine Sodium (Synthroid) 50 mcg DAILY@0600 PO 05/16/16 06:00 05/19/16 06:36 Nystatin (Mycostatin Liq) 5 ml QID SWISH-SWAL 05/16/16 13:00 05/20/16 08:21 Pantoprazole Sodium (Protonix) 40 mg DAILY PO 05/16/16 12:30 05/20/16 08:21 Folic Acid (Folate) 1 mg DAILY PO 05/16/16 13:00 05/20/16 08:21 Thiamine HCl (Vitamin B1) 100 mg DAILY PO 05/16/16 13:00 05/20/16 08:21 Atenolol (Tenormin) 12.5 mg Q12HR PO 05/17/16 11:00 05/20/16 08:21 Objective Remarks GENERAL: Middle aged female, lying in bed, watching TV SKIN: Warm and dry. HEAD: Normocephalic. EYES: No injection or drainage. NECK: Supple, trachea midline. CARDIOVASCULAR: +S1/S2 RESPIRATORY: Breath sounds equal bilaterally. No accessory muscle use. GASTROINTESTINAL: Abdomen soft, non-tender, mildly distended. EXTREMITIES: No cyanosis NEUROLOGICAL: awake and alert, normal speech. moving extremities. Assessment/Plan Problem List: (1) Lung mass Status: Acute Plan: 05/20/16: EGD today showed stricture vs mass, official report pending. History/Workup: --Multiple lung masses most consistent with metastatic disease. --history of esophageal squamous cell carcinoma treated with radiation and chemotherapy at the end of 2013. --was noncompliant and has not followed up. --February 2016, during one of her ER visits, CT showed pulmonary nodule. left AMA and did not follow up. --now presented with constitutional symptoms and increased shortness of breath. --CT of the chest showed multiple lung nodules, largest in the right upper lobe measured about 5.9 cm. --most likely metastatic esophageal cancer. --Clinically, has dysphagia worse over the last 3-4 months. --CT abdomen and pelvis no mets. --GI consulted EGD pending --if GI w/u neg, can biopsy one of the lung lesions to establish a diagnosis. --if she is confirmed to have metastatic esophageal cancer, this is not a curable disease. Palliative chemotherapy may relieve some of her symptoms and prolong her survival. Assessment 71y/o female with multiple lung masses consistent with metastatic disease, initially presented to the hospital with increased weakness, dysphagia, and frequent falls. h/o Esophageal squamous cell carcinoma treated with radiation with cisplatin, 5- FU in March of 2004. Atrial fibrillation. Tobacco abuse. Chronic obstructive pulmonary disease Hypertension Alcohol abuse. Multiple EGDs with dilatation Hysterectomy. Cartilage removed from bilateral knee Hiatal hernia repair. PEG tube placement and removal . Plan 1. monitor CBC 2. possible invasive radiology consult for biopsy of lung mass, will wait on official EGD report. Attending Statement The exam, history, and the medical decision-making described in the above note were completed with the assistance of the mid-level provider. I reviewed and agree with the findings presented. I attest that I had a [id number] encounter with the patient on the same day, and personally performed and documented my assessment and findings in the medical record. Dysphagia is stable. No new symptoms. Await EGD. If no esophageal mass, will biopsy the lung mass. Claritza Arechiga May 20, 2016 14:51 Eron Weinstein MD May 20, 2016 14:54
[2016-05-20 17:53] LABS: BLOOD GAS BASE EXCESS -1.6 mmol/L (-2-2); BLOOD GAS CARBOXYHEMOGLOBIN 1.7 % (0-4); BLOOD GAS HCO3 22 mmol/L (22-26); BLOOD GAS METHEMOGLOBIN 0.5 % (0-2); BLOOD GAS O2 HGB SATURATION 94 % (90-100); BLOOD GAS OXYGEN CONTENT 12.9 Vol % (12.0-20.0); BLOOD GAS PCO2 33 mmHg (38-42); BLOOD GAS PO2 83 mmHg (61-120); BLOOD GAS TOTAL HGB 9.7 G/DL (12.0-16.0); CRITICAL VALUE NO; DRAW SITE RT RADIAL; FIO2 21 %; NUMBER OF ARTERIAL PUNCTURES 1; STAT NO; TEMP CORR TO 98.6; ULNAR PULSE PRESENT
[2016-05-20] MEDS: ALPRAZolam 1 MG TAB PO PRN (21:42)
[2016-05-21] VITALS (9 sets, daily range): BP systolic 103–150; BP diastolic 59–94; PULSE 73–98; RESP 16–18; TEMP 97.8–98.5; O2SAT 96–100
[2016-05-21] MEDS: ACETAMINOPHEN/HYDROcodone 325 MG/10 MG TAB PO PRN ×3 (00:13→17:13)
[2016-05-21] MEDS: LACTATED RINGER'S 1000 ML IV SCH (00:15)
[2016-05-21] MEDS: LEVOTHYROXINE SODIUM 50 MCG TAB PO SCH (06:42)
[2016-05-21 06:52] LABS: EOSINOPHIL # 0.2 TH/MM3 (0-0.4); HEMATOCRIT 30.1 % (35.0-46.0); LYMPH % 19.5 % (9.0-44.0); LYMPHOCYTE # 0.8 TH/MM3 (1.0-4.8); MEAN CELL VOLUME 81.9 FL (80.0-100.0); MEAN CORPUSCULAR HEMOGLOBIN 26.1 PG (27.0-34.0); MEAN CORPUSCULAR HGB CONC 31.9 % (32.0-36.0); MONO % 25.4 % (0.0-8.0); NEUT % 50.1 % (16.0-70.0); PLATELET COUNT 256 TH/MM3 (150-450); RED BLOOD COUNT 3.67 MIL/MM3 (4.00-5.30); RED CELL DISTRIBUTION WIDTH 21.4 % (11.6-17.2); WHITE BLOOD COUNT 4.1 TH/MM3 (4.0-11.0)
[2016-05-21 07:11] LABS: ALKALINE PHOSPHATASE 119 U/L (45-117); ALT (GPT) 12 U/L (10-53); ANION GAP 10 MEQ/L (5-15); AST (GOT) 23 U/L (15-37); BICARBONATE 25.9 MEQ/L (21.0-32.0); BLOOD UREA NITROGEN 8 MG/DL (7-18); CHLORIDE 101 MEQ/L (98-107); GLOMERULAR FILTRATION RATE 115 ML/MIN (>89); POTASSIUM 3.4 MEQ/L (3.5-5.1); SODIUM (NA) 137 MEQ/L (136-145); TOTAL BILIRUBIN ADULT 0.3 MG/DL (0.2-1.0)
[2016-05-21 07:15] LABS: HEMO FLAGS AUTO DIFF
[2016-05-21] MEDS: FOLIC ACID 1 MG TAB PO SCH (08:54)
[2016-05-21] MEDS: PANTOPRAZOLE SOD 40 MG DELAYED RELEASE TAB PO SCH (08:54)
[2016-05-21] MEDS: THIAMINE HCL 100 MG TAB PO SCH (08:54)
[2016-05-21] MEDS: NYSTATIN SUSP 500,000 U/5 ML CUP SWISH-SWAL SCH ×4 (08:54→21:55)
[2016-05-21] MEDS: ATENOLOL 25 MG TAB PO SCH ×2 (08:54→21:55)
[2016-05-21 09:14] LABS: BANDS 2 % (0-6); BASOPHILS 1 % (0-2); EOSINOPHILS 4 % (0-4); MYELOCYTES 1 % (0-0); NEUTROPHIL # MANUAL DIFF 2.3 TH/MM3 (1.8-7.7); POLYS (SEG NEUTROPHILS) 52 % (16-70); WBC DIFF SAMPLE 100
[2016-05-21 09:15] LABS: PLATELET ESTIMATE SMEAR NORMAL (NORMAL); PLATELET MORPHOLOGY NORMAL (NORMAL); SCAN/DIFF FINAL DIFF MANUAL
--- NOTE | 2016-05-21 09:21 | HHI.PR ---
Subjective Remarks S/P EGD with dilatation 05/20 angry about diet, on liquids some wheezing informed that she's going for lung bx to IR-"Don't take my lung out" discussed procedure has no other complaints no fever no acute changes overnight Objective Objective Results - Vital Signs Date Time Temp Pulse Resp B/P Pulse Ox O2 Delivery O2 Flow Rate FiO2 05/21/16 08:52 96 21 05/21/16 08:00 97.9 73 18 123/71 97 05/21/16 04:00 97.8 76 18 131/94 100 05/21/16 00:47 97 05/21/16 00:00 98.1 82 18 111/59 98 05/20/16 22:00 73 05/20/16 21:45 Room Air 05/20/16 20:00 98.4 78 18 132/80 95 05/20/16 16:00 97.4 85 20 126/88 97 05/20/16 12:00 97.6 75 18 134/70 97 05/20/16 10:05 80 16 112/63 98 05/20/16 09:58 78 16 127/67 98 05/20/16 09:50 98.5 85 16 113/71 98 I/O 05/20/16 05/20/16 05/20/16 05/21/16 05/21/16 05/21/16 07:00 15:00 23:00 07:00 15:00 23:00 Intake Total 240 ml 508 ml 240 ml 240 ml Output Total 600 ml Balance -360 ml 508 ml 240 ml 240 ml Intake Oral 240 ml 480 ml 240 ml 240 ml Other 28 ml Output Urine Total 600 ml # Voids 3 2 2 # Bowel Movements 0 1 1 0 Result Diagram: 05/21/16 0606 05/21/16 06 Imaging Last Impressions Tibia/Fibula X-Ray 05/15/161445 Signed Impressions: Service Date/Time: Sunday, May 15, 2016 16:13 - CONCLUSION: No acute disease. Jo Raines MD Head CT 05/15/161445 Signed Impressions: Service Date/Time: Sunday, May 15, 2016 15:53 - CONCLUSION: Negative for acute traumatic injury. Gerardo Tang MD FACR Foot X-Ray 05/15/161445 Signed Impressions: Service Date/Time: Sunday, May 15, 2016 16:07 - CONCLUSION: No acute disease. Jo Raines MD Femur X-Ray 05/15/16 1446 Signed Impressions: Service Date/Time: Sunday, May 15, 2016 17:09 - CONCLUSION: 1. No acute fracture. 2. Benign periosteal reaction distal femur. Kory Villa MD Chest X-Ray 05/15/16 1446 Signed Impressions: Service Date/Time: Sunday, May 15, 2016 16:05 - CONCLUSION: Multiple pulmonary masses. These appear grossly stable as compared to the prior plain film of the chest dated February 22, 2016.. Jo Raines MD Abdomen/Pelvis CT 05/15/16 1446 Signed Impressions: Service Date/Time: Sunday, May 15, 2016 15:57 - CONCLUSION: Abnormal lung exam with a irregular 1.3 cm mass identified within the right lower lung. Given the morphology this could represent a small lung cancer in a background setting of chronic interstitial lung disease. If not previously performed recommend CT of the thorax to evaluate for additional lesions. No evidence of metastatic disease to the adrenal glands or liver. Jo Raines MD Pelvis X-Ray 05/15/16 0000 Signed Impressions: Service Date/Time: Sunday, May 15, 2016 17:07 - CONCLUSION: Unremarkable examination of the pelvis. Tito Gonzales MD Chest CT 05/15/16 0000 Signed Impressions: Service Date/Time: Sunday, May 15, 2016 17:57 - CONCLUSION: 1. Multiple bilateral pulmonary masses the largest in the posterior right upper lobe measuring 5.9 x 4.2 cm. Some of these masses contain cavitation. This is likely secondary to metastatic disease. 2. Ascending aortic aneurysm measuring 4.6 cm. 3. Sclerotic severe compression deformity of what appears to be T6. Kory Villa MD Other Results Laboratory Tests Test 05/20/16 05/21/16 17:38 06:06 Blood Gas Puncture Site RT RADIAL Blood Gas Patient Temperature 98.6 Blood Gas HCO3 22 Blood Gas Base Excess -1.6 Blood Gas Oxygen Saturation 94 Arterial Blood pH 7.44 Arterial Blood Partial 33 Pressure CO2 Arterial Blood Partial 83 Pressure O2 Arterial Blood Oxygen Content 12.9 Arterial Blood 1.7 Carboxyhemoglobin Arterial Blood Methemoglobin 0.5 Blood Gas Hemoglobin 9.7 Oxygen Delivery Device Blood Gas Inspired Oxygen 21 White Blood Count 4.1 Red Blood Count 3.67 Hemoglobin 9.6 Hematocrit 30.1 Mean Corpuscular Volume 81.9 Mean Corpuscular Hemoglobin 26.1 Mean Corpuscular Hemoglobin 31.9 Concent Red Cell Distribution Width 21.4 Platelet Count 256 Mean Platelet Volume 8.1 Neutrophils (%) (Auto) 50.1 Lymphocytes (%) (Auto) 19.5 Monocytes (%) (Auto) 25.4 Eosinophils (%) (Auto) 4.0 Basophils (%) (Auto) 1.0 Neutrophils # (Auto) 2.0 Lymphocytes # (Auto) 0.8 Monocytes # (Auto) 1.0 Eosinophils # (Auto) 0.2 Basophils # (Auto) 0.0 CBC Comment AUTO DIFF Differential Total Cells 100 Counted Neutrophils % (Manual) 52 Band Neutrophils % 2 Lymphocytes % 19 Monocytes % 21 Eosinophils % 4 Basophils % 1 Neutrophils # (Manual) 2.3 Myelocytes 1 Differential Comment FINAL DIFF MANUAL Platelet Estimate NORMAL Platelet Morphology Comment NORMAL Sodium Level 137 Potassium Level 3.4 Chloride Level 101 Carbon Dioxide Level 25.9 Anion Gap 10 Blood Urea Nitrogen 8 Creatinine 0.62 Estimat Glomerular Filtration 115 Rate Random Glucose 86 Calcium Level 8.5 Total Bilirubin 0.3 Aspartate Amino Transf 23 (AST/SGOT) Alanine Aminotransferase 12 (ALT/SGPT) Alkaline Phosphatase 119 Total Protein 6.9 Albumin 2.5 ROS General: No: Fatigue, Weakness HEENT: No: Sore Throat, Dysphagia Cardiac: No: Chest Pain, Edema, Palpitations Pulmonary: Cough, SOB, Wheezing GI: No: Abdominal Pain, BM, Diarrhea, N/V /CERTIFIED SURGICAL ASSISTANT: No: Dysuria, Urgency Neuro/MS: No: Lightheaded, Confusion Psych: No: Anxiety, Depression Skin: No: Itching, Rash Physical Exam Physical Exam GENERAL: This is a malnourished, chronically ill-appearing female. SKIN: No rashes, ecchymoses or lesions. Cool and dry. HEAD: Atraumatic. Normocephalic. No temporal or scalp tenderness. EYES: Pupils equal round and reactive. Extraocular motions intact. No scleral icterus. No injection or drainage. ENT: Nose without bleeding, purulent drainage or septal hematoma. Oropharynx is noted with small patches of thrush, mild erythema. No exudate. Uvula midline. Airway patent. NECK: Trachea midline. No JVD or lymphadenopathy. Supple, nontender, no meningeal signs. CARDIOVASCULAR: Regular rate and rhythm without murmurs, gallops, or rubs. RESPIRATORY: exp. wheeze, scattered ronchi GASTROINTESTINAL: Abdomen soft, non-tender, nondistended. No hepato-splenomegaly , or palpable masses. No guarding. MUSCULOSKELETAL: Extremities without clubbing, cyanosis, or edema. No joint tenderness, effusion, or edema noted. No calf tenderness. Negative Homans sign bilaterally. Complaints of pain to palpation of all extremities, no joint abnormalities noted. NEUROLOGICAL: Awake, alert oriented 3. No focal deficits. Speech is clear. Poor historian. Urinary Catheter: No Vascular Central Line Catheter: No A/P Diagnosis: (1) Weakness (2) Falls (3) Malignant neoplasm of both lungs (4) Hypothyroidism (5) Syncope (6) Esophageal cancer Plan: HX OF ESOPHAGEAL CANCER, PRIOR CHEMO AND RADIATION (7) COPD (chronic obstructive pulmonary disease) (8) Cough (9) Dysphagia (10) HTN (hypertension) (11) Non-compliance (12) Polysubstance abuse (13) Anemia (14) Ascending aortic aneurysm Assessment and Plan 71-year-old female, prior history esophageal cancer in 2015 treated with radiation and chemotherapy, failed to follow up for oncologic surveillance. Presented to emergency room with weakness, shortness of breath, pain, weight loss, poor appetite. Found with multiple bilateral pulmonary masses, large mass to the right upper lobe, some other masses containing cavitation, also noted with sclerotic severe compression deformity of what appears to be T6. -Appreciate Dr. Larkin's input, recommends onc input. -Appreciate Dr. Weinstein''s input, recommends GI consult due to dysphagia. Lung masses likely esophageal mets -CEA level elevated -To IR today for lung bx COPD with chronic bronchitis DuoNeb's 4 times a day and when necessary Tachycardia, initially thought to be due to dehydration. Improved -continue low dose Atenolol 12.5 mg po bid Anemia, etiology unclear Iron profile results noted, low iron stores We will check stools for occult blood-pending -HH stable Complaining of dysphagia, prior history with last EGD with dilatation in 2015. -Swallow evaluation results noted, continue regular diet. -GI input appreciated -S/P EGD with dilatation 05/20 -Barium swallow done today, esophageal irregularity, no obstruction -follow biopsy findings Thrush -Nystatin swish and swallow 4 times a day Hypothyroid, has been noncompliant with medications, TSH 19.9 -Continue Synthroid at 50 g daily, needs to follow up as outpatient with PCP for repeat TSH in 6 weeks. Polysubstance abuse, alcohol level 40-stable -Monitor for withdrawal symptoms -Folic acid and thiamine -Continue with Xanax when necessary -Counselled about substance abuse. History of A. fib, currently sinus rhythm, on Xarelto with poor compliance -Continuous cardiac telemetry -Continue to hold Xarelto, may need more dx work up if EGD negative Ascending aortic aneurysm measuring 4.6 cm (previous CT chest measurement 4.5 cm ) -continue to monitor, stable Generalized weakness with falls and possible syncope -Physical therapy for evaluation and treatment SCDs for DVT prophylaxis Protonix for GI prophylaxis continue with above To IR today for lung bx D/W RN D/W D/W pt This patient was seen by myself and Dr. Ramos, this note is written on his behalf Problem Qualifiers (1) Falls: Qualified Code: W19.XXXS - Falls, sequela (2) Hypothyroidism: Qualified Code: E03.9 - Hypothyroidism, unspecified type (3) Syncope: Qualified Code: R55 - Syncope, unspecified syncope type (4) COPD (chronic obstructive pulmonary disease): (5) Dysphagia: Qualified Code: R13.10 - Dysphagia, unspecified type (6) HTN (hypertension): Qualified Code: I10 - Essential hypertension (7) Anemia: Qualified Code: D64.9 - Anemia, unspecified type Velma Rosales May 21, 2016 09:21
--- NOTE | 2016-05-21 12:04 | HHI.GIFU ---
Subjective Remarks Resting in bed in no distress. States she tolerated regular diet yesterday with hamburger but was put on a clear liquid diet and is not sure why. No n/v at this time. (Jeanne Casillas) Objective Vitals I&O Vital Signs Date Time Temp Pulse Resp B/P Pulse Ox O2 Delivery O2 Flow Rate FiO2 05/21/16 08:52 96 21 05/21/16 08:40 Room Air 05/21/16 08:40 75 05/21/16 08:00 97.9 73 18 123/71 97 05/21/16 04:00 97.8 76 18 131/94 100 05/21/16 00:47 97 05/21/16 00:00 98.1 82 18 111/59 98 05/20/16 22:00 73 05/20/16 21:45 Room Air 05/20/16 20:00 98.4 78 18 132/80 95 05/20/16 16:00 97.4 85 20 126/88 97 05/20/16 12:00 97.6 75 18 134/70 97 I/O 05/20/16 05/20/16 05/20/16 05/21/16 05/21/16 05/21/16 07:00 15:00 23:00 07:00 15:00 23:00 Intake Total 240 ml 508 ml 240 ml 240 ml Output Total 600 ml Balance -360 ml 508 ml 240 ml 240 ml Intake Oral 240 ml 480 ml 240 ml 240 ml Other 28 ml Output Urine Total 600 ml # Voids 3 2 2 # Bowel Movements 0 1 1 0 Laboratory Laboratory Tests Test 05/20/16 05/21/16 17:38 06:06 Blood Gas Puncture Site RT RADIAL Blood Gas Patient Temperature 98.6 Blood Gas HCO3 22 Blood Gas Base Excess -1.6 Blood Gas Oxygen Saturation 94 Arterial Blood pH 7.44 Arterial Blood Partial 33 Pressure CO2 Arterial Blood Partial 83 Pressure O2 Arterial Blood Oxygen Content 12.9 Arterial Blood 1.7 Carboxyhemoglobin Arterial Blood Methemoglobin 0.5 Blood Gas Hemoglobin 9.7 Oxygen Delivery Device Blood Gas Inspired Oxygen 21 White Blood Count 4.1 Red Blood Count 3.67 Hemoglobin 9.6 Hematocrit 30.1 Mean Corpuscular Volume 81.9 Mean Corpuscular Hemoglobin 26.1 Mean Corpuscular Hemoglobin 31.9 Concent Red Cell Distribution Width 21.4 Platelet Count 256 Mean Platelet Volume 8.1 Neutrophils (%) (Auto) 50.1 Lymphocytes (%) (Auto) 19.5 Monocytes (%) (Auto) 25.4 Eosinophils (%) (Auto) 4.0 Basophils (%) (Auto) 1.0 Neutrophils # (Auto) 2.0 Lymphocytes # (Auto) 0.8 Monocytes # (Auto) 1.0 Eosinophils # (Auto) 0.2 Basophils # (Auto) 0.0 CBC Comment AUTO DIFF Differential Total Cells 100 Counted Neutrophils % (Manual) 52 Band Neutrophils % 2 Lymphocytes % 19 Monocytes % 21 Eosinophils % 4 Basophils % 1 Neutrophils # (Manual) 2.3 Myelocytes 1 Differential Comment FINAL DIFF MANUAL Platelet Estimate NORMAL Platelet Morphology Comment NORMAL Sodium Level 137 Potassium Level 3.4 Chloride Level 101 Carbon Dioxide Level 25.9 Anion Gap 10 Blood Urea Nitrogen 8 Creatinine 0.62 Estimat Glomerular Filtration 115 Rate Random Glucose 86 Calcium Level 8.5 Total Bilirubin 0.3 Aspartate Amino Transf 23 (AST/SGOT) Alanine Aminotransferase 12 (ALT/SGPT) Alkaline Phosphatase 119 Total Protein 6.9 Albumin 2.5 Imaging Last Impressions Barium Swallow X-Ray 05/20/16 0000 Signed Impressions: Service Date/Time: Friday, May 20, 2016 10:40 - CONCLUSION: 1. I do not see evidence for a fixed obstruction. 2. Minimal irregularity in the mid esophagus that could be site of primary. 3. I have no prior studies for comparison. 4. There is no aspiration. Gerardo Tang MD FACR Tibia/Fibula X-Ray 05/15/16 1446 Signed Impressions: Service Date/Time: Sunday, May 15, 2016 16:13 - CONCLUSION: No acute disease. Jo Raines MD Head CT 05/15/16 1446 Signed Impressions: Service Date/Time: Sunday, May 15, 2016 15:53 - CONCLUSION: Negative for acute traumatic injury. Gerardo Tang MD FACR Foot X-Ray 05/15/16 1446 Signed Impressions: Service Date/Time: Sunday, May 15, 2016 16:07 - CONCLUSION: No acute disease. Jo Raines MD Femur X-Ray 05/15/16 1446 Signed Impressions: Service Date/Time: Sunday, May 15, 2016 17:09 - CONCLUSION: 1. No acute fracture. 2. Benign periosteal reaction distal femur. Kory Villa MD Chest X-Ray 05/15/16 1446 Signed Impressions: Service Date/Time: Sunday, May 15, 2016 16:05 - CONCLUSION: Multiple pulmonary masses. These appear grossly stable as compared to the prior plain film of the chest dated February 22, 2016.. Jo Raines MD Abdomen/Pelvis CT 05/15/16 1446 Signed Impressions: Service Date/Time: Sunday, May 15, 2016 15:57 - CONCLUSION: Abnormal lung exam with a irregular 1.3 cm mass identified within the right lower lung. Given the morphology this could represent a small lung cancer in a background setting of chronic interstitial lung disease. If not previously performed recommend CT of the thorax to evaluate for additional lesions. No evidence of metastatic disease to the adrenal glands or liver. Jo Raines MD Pelvis X-Ray 05/15/16 0000 Signed Impressions: Service Date/Time: Sunday, May 15, 2016 17:07 - CONCLUSION: Unremarkable examination of the pelvis. Tito Gonzales MD Chest CT 05/15/16 0000 Signed Impressions: Service Date/Time: Sunday, May 15, 2016 17:57 - CONCLUSION: 1. Multiple bilateral pulmonary masses the largest in the posterior right upper lobe measuring 5.9 x 4.2 cm. Some of these masses contain cavitation. This is likely secondary to metastatic disease. 2. Ascending aortic aneurysm measuring 4.6 cm. 3. Sclerotic severe compression deformity of what appears to be T6. Kory Villa MD Physical Exam CHEST: Resp. even/unlabored. CARDIAC: RRR ABDOMEN: Soft, nondistended, nontender; no hepatosplenomegaly; bowel sounds are present in all four quadrants. EXTREMITIES: No clubbing, cyanosis, or edema. SKIN: Normal; no rash; no jaundice. EDUCATION AND DEVELOPMENT MANAGER: No focal deficits; alert and oriented times three. (Jeanne Casillas) Assessment and Plan Plan ASSESSMENT 1. Multiple lung masses most consistent with metastatic disease. S/P EGD ()---> Long stricture in middle third of esophagus, multiple biopsies, retroflexed views revealed no abnormalities. Barium swallow (05/20/16)----> 1. I do not see evidence for a fixed obstruction. 2. Minimal irregularity in the mid esophagus that could be site of primary. 3. I have no prior studies for comparison. 4. There is no aspiration. GS, oncology on the case. IR consulted for lung bx. Path from EGD pending. 2. 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 She, however, was noncompliant and has not followed up. S/P EGD (05/20/16)---> Long stricture in middle third of esophagus, multiple biopsies, retroflexed views revealed no abnormalities. Barium swallow (05/20/16)----> 1. I do not see evidence for a fixed obstruction. 2. Minimal irregularity in the mid esophagus that could be site of primary. 3. I have no prior studies for comparison. 4. There is no aspiration. Pathology pending. 3. Proximal atrial fibrillation, COPD, Tobacco dependence Plan: - Soft diet - Await pathology from EGD - PPI - Consider EGD with dilatation once path from EGD resulted - IR consulted for lung biopsy - GS, Oncology on the case - Supportive care - Pt seen and examined by Dr. Robbins and myself and this note is written on his behalf (Jeanne Casillas) Physician Comments Seen and examined with Ms. Sonja BUSTOS, Biopsies show recurrent esophageal cancer. Discussed with Dr. Weinstein and pt. esophageal stent vs. peg. Pt. will discuss with boy friend and let us know. (Zach Robbins MD) Jeanne Casillas May 21, 2016 12:04 Zach Robbins MD May 21, 2016 15:13
--- NOTE | 2016-05-21 12:14 | PD.ONC.PN ---
Subjective Subjective Remarks Afebrile overnight. Patient resting comfortably. She complains about her liquid diet. She wants to be able to eat a regular diet. Objective Data Date Time Temp Pulse Resp B/P Pulse Ox O2 Delivery O2 Flow Rate FiO2 05/21/16 08:52 96 21 05/21/16 08:40 Room Air 05/21/16 08:40 75 05/21/16 08:00 97.9 73 18 123/71 97 05/21/16 04:00 97.8 76 18 131/94 100 05/21/16 00:47 97 05/21/16 00:00 98.1 82 18 111/59 98 05/20/16 22:00 73 05/20/16 21:45 Room Air 05/20/16 20:00 98.4 78 18 132/80 95 05/20/16 16:00 97.4 85 20 126/88 97 05/21/16 05/21/16 05/21/16 07:00 15:00 23:00 Intake Total 240 ml Balance 240 ml Result Diagram: 05/21/16 0606 05/21/16 0606 Laboratory Results Laboratory Tests Test 05/20/16 05/21/16 17:38 06:06 Blood Gas Puncture Site RT RADIAL Blood Gas Patient Temperature 98.6 Blood Gas HCO3 22 mmol/L Blood Gas Base Excess -1.6 mmol/L Blood Gas Oxygen Saturation 94 % Arterial Blood pH 7.44 Arterial Blood Partial 33 mmHg Pressure CO2 Arterial Blood Partial 83 mmHg Pressure O2 Arterial Blood Oxygen Content 12.9 Vol % Arterial Blood 1.7 % Carboxyhemoglobin Arterial Blood Methemoglobin 0.5 % Blood Gas Hemoglobin 9.7 G/DL Oxygen Delivery Device Blood Gas Inspired Oxygen 21 % White Blood Count 4.1 TH/MM3 Red Blood Count 3.67 MIL/MM3 Hemoglobin 9.6 GM/DL Hematocrit 30.1 % Mean Corpuscular Volume 81.9 FL Mean Corpuscular Hemoglobin 26.1 PG Mean Corpuscular Hemoglobin 31.9 % Concent Red Cell Distribution Width 21.4 % Platelet Count 256 TH/MM3 Mean Platelet Volume 8.1 FL Neutrophils (%) (Auto) 50.1 % Lymphocytes (%) (Auto) 19.5 % Monocytes (%) (Auto) 25.4 % Eosinophils (%) (Auto) 4.0 % Basophils (%) (Auto) 1.0 % Neutrophils # (Auto) 2.0 TH/MM3 Lymphocytes # (Auto) 0.8 TH/MM3 Monocytes # (Auto) 1.0 TH/MM3 Eosinophils # (Auto) 0.2 TH/MM3 Basophils # (Auto) 0.0 TH/MM3 CBC Comment AUTO DIFF Differential Total Cells 100 Counted Neutrophils % (Manual) 52 % Band Neutrophils % 2 % Lymphocytes % 19 % Monocytes % 21 % Eosinophils % 4 % Basophils % 1 % Neutrophils # (Manual) 2.3 TH/MM3 Myelocytes 1 % Differential Comment FINAL DIFF MANUAL Platelet Estimate NORMAL Platelet Morphology Comment NORMAL Sodium Level 137 MEQ/L Potassium Level 3.4 MEQ/L Chloride Level 101 MEQ/L Carbon Dioxide Level 25.9 MEQ/L Anion Gap 10 MEQ/L Blood Urea Nitrogen 8 MG/DL Creatinine 0.62 MG/DL Estimat Glomerular Filtration 115 ML/MIN Rate Random Glucose 86 MG/DL Calcium Level 8.5 MG/DL Total Bilirubin 0.3 MG/DL Aspartate Amino Transf 23 U/L (AST/SGOT) Alanine Aminotransferase 12 U/L (ALT/SGPT) Alkaline Phosphatase 119 U/L Total Protein 6.9 GM/DL Albumin 2.5 GM/DL Administered Medications Medications (Trade) Dose Ordered Sig/Candida Route PRN Reason Start Time Stop Time Status Last Admin Dose Admin Alprazolam (Xanax) 1 mg TID PRN PO ANXIETY 05/15/16 18:45 05/20/16 21:42 Acetaminophen/ Hydrocodone Bitart (Eminence 10-325 Mg) 1 tab Q6HR PRN PO PAIN 1-10 05/15/16 18:45 05/21/16 08:56 Levothyroxine Sodium (Synthroid) 50 mcg DAILY@0600 PO 05/16/16 06:00 05/21/16 06:42 Nystatin (Mycostatin Liq) 5 ml QID SWISH-SWAL 05/16/16 13:00 05/21/16 11:38 Pantoprazole Sodium (Protonix) 40 mg DAILY PO 05/16/16 12:30 05/21/16 08:54 Folic Acid (Folate) 1 mg DAILY PO 05/16/16 13:00 05/21/16 08:54 Thiamine HCl (Vitamin B1) 100 mg DAILY PO 05/16/16 13:00 05/21/16 08:54 Atenolol (Tenormin) 12.5 mg Q12HR PO 05/17/16 11:00 05/21/16 08:54 Objective Remarks GENERAL: Middle aged female, sitting up in bed in nad. SKIN: Warm and dry. HEAD: Normocephalic. EYES: No injection or drainage. NECK: Supple, trachea midline. CARDIOVASCULAR: +S1/S2 RESPIRATORY: Breath sounds equal bilaterally. No accessory muscle use. GASTROINTESTINAL: Abdomen soft, non-tender, mildly distended. EXTREMITIES: No cyanosis NEUROLOGICAL: AO x3. normal speech. independently ambulatory Assessment/Plan Problem List: (1) Lung mass Status: Acute Plan: 05/21/16: consult invasive radiology for lung mass biopsy History/Workup: --Multiple lung masses most consistent with metastatic disease. --history of esophageal squamous cell carcinoma treated with radiation and chemotherapy at the end of 2013. --was noncompliant and has not followed up. --February 2016, during one of her ER visits, CT showed pulmonary nodule. left AMA and did not follow up. --now presented with constitutional symptoms and increased shortness of breath. --CT of the chest showed multiple lung nodules, largest in the right upper lobe measured about 5.9 cm. --most likely metastatic esophageal cancer. --Clinically, has dysphagia worse over the last 3-4 months. --CT abdomen and pelvis no mets. --GI consulted EGD pending --if GI w/u neg, can biopsy one of the lung lesions to establish a diagnosis. --if she is confirmed to have metastatic esophageal cancer, this is not a curable disease. Palliative chemotherapy may relieve some of her symptoms and prolong her survival. Assessment 71y/o female with multiple lung masses consistent with metastatic disease, initially presented to the hospital with increased weakness, dysphagia, and frequent falls. h/o Esophageal squamous cell carcinoma treated with radiation with cisplatin, 5- FU in March of 2004. Atrial fibrillation. Tobacco abuse. Chronic obstructive pulmonary disease Hypertension Alcohol abuse. Multiple EGDs with dilatation Hysterectomy. Cartilage removed from bilateral knee Hiatal hernia repair. PEG tube placement and removal . Plan 1. monitor CBC 2. invasive radiology consult for biopsy of lung mass Attending Statement The exam, history, and the medical decision-making described in the above note were completed with the assistance of the mid-level provider. I reviewed and agree with the findings presented. I attest that I had a [id number] encounter with the patient on the same day, and personally performed and documented my assessment and findings in the medical record. Want to eat regular food. EGD and barium swallow study reviewed. EGD showed stricture. Path pending. Will biopsy the lung mass if path is negative. Claritza Arechiga May 21, 2016 12:14 Eron Weinstein MD May 21, 2016 13:29
[2016-05-21] MEDS: ALPRAZolam 1 MG TAB PO PRN (17:13)
[2016-05-22] MEDS: LACTATED RINGER'S 1000 ML IV SCH (00:15)
[2016-05-22] MEDS: ACETAMINOPHEN/HYDROcodone 325 MG/10 MG TAB PO PRN ×4 (00:15→23:06)
[2016-05-22] MEDS: ALPRAZolam 1 MG TAB PO PRN ×3 (03:16→23:06)
[2016-05-22 04:58] VITALS: BP 132/71; PULSE 82; RESP 16; TEMP 97.7; O2SAT 98
[2016-05-22] MEDS: LEVOTHYROXINE SODIUM 50 MCG TAB PO SCH (06:06)
[2016-05-22 08:00] VITALS: BP 121/76; PULSE 80; RESP 20; TEMP 97.8; O2SAT 98
[2016-05-22 08:06] VITALS: PULSE 64
[2016-05-22] MEDS: PANTOPRAZOLE SOD 40 MG DELAYED RELEASE TAB PO SCH (08:17)
[2016-05-22] MEDS: THIAMINE HCL 100 MG TAB PO SCH (08:18)
[2016-05-22] MEDS: ATENOLOL 25 MG TAB PO SCH ×2 (08:18→23:06)
[2016-05-22] MEDS: FOLIC ACID 1 MG TAB PO SCH (08:19)
[2016-05-22] MEDS: NYSTATIN SUSP 500,000 U/5 ML CUP SWISH-SWAL SCH ×4 (08:20→23:06)
--- NOTE | 2016-05-22 11:41 | PD.ONC.PN ---
Subjective Subjective Remarks Afebrile overnight. Patient sitting up in bed eating breakfast. She states she is not ready to make any decisions until her boyfriend gets here. Tolerating a regular diet. Objective Data Date Time Temp Pulse Resp B/P Pulse Ox O2 Delivery O2 Flow Rate FiO2 05/22/16 08:06 64 05/22/16 08:00 Room Air 05/22/16 08:00 97.8 80 20 121/76 98 05/22/16 04:58 97.7 82 16 132/71 98 05/21/16 20:15 Room Air 05/21/16 20:00 98.4 87 16 103/64 96 05/21/16 16:00 98.4 83 18 150/86 98 05/21/16 12:00 98.0 73 18 111/61 97 05/22/16 05/22/16 05/22/16 07:00 15:00 23:00 Intake Total 480 ml Balance 480 ml Result Diagram: 05/21/1606 05/21/16 0606 Administered Medications Medications (Trade) Dose Ordered Sig/Candida Route PRN Reason Start Time Stop Time Status Last Admin Dose Admin Alprazolam (Xanax) 1 mg TID PRN PO ANXIETY 05/15/16 18:45 05/22/16 03:16 Acetaminophen/ Hydrocodone Bitart ([place] 10-325 Mg) 1 tab Q6HR PRN PO PAIN 1-10 05/15/16 18:45 05/22/16 08:17 Levothyroxine Sodium (Synthroid) 50 mcg DAILY@0600 PO 05/16/16 06:00 05/22/16 06:06 Nystatin (Mycostatin Liq) 5 ml QID SWISH-SWAL 05/16/16 13:00 05/21/16 21:55 Pantoprazole Sodium (Protonix) 40 mg DAILY PO 05/16/16 12:30 05/22/16 08:17 Folic Acid (Folate) 1 mg DAILY PO 05/16/16 13:00 05/22/16 08:19 Thiamine HCl (Vitamin B1) 100 mg DAILY PO 05/16/16 13:00 05/22/16 08:18 Atenolol (Tenormin) 12.5 mg Q12HR PO 05/17/16 11:00 05/22/16 08:18 Objective Remarks GENERAL: Middle aged female, sitting up in bed, eating pancakes. SKIN: Warm and dry. HEAD: Normocephalic. EYES: No injection or drainage. NECK: Supple, trachea midline. CARDIOVASCULAR: +S1/S2 RESPIRATORY: Breath sounds equal bilaterally. No accessory muscle use. GASTROINTESTINAL: Abdomen soft, non-tender, mildly distended. EXTREMITIES: No cyanosis NEUROLOGICAL: awake and alert, oriented x 3. normal speech Assessment/Plan Problem List: (1) Lung mass Status: Acute Plan: 05/22/16: discussed pathology results which show squamous cell carcinoma. patient emphatic she does not want any type of treatment. discussed possibility of hospice--patient is still unsure what she wants. she wants to talk to her boyfriend. discussed possibility of getting a PEG tube as her dysphagia will increase. she is emphatic in her response that she definitely does not want a PEG tube at this time. History/Workup: --Multiple lung masses most consistent with metastatic disease. --history of esophageal squamous cell carcinoma treated with radiation and chemotherapy at the end of 2013. --was noncompliant and has not followed up. --February 2016, during one of her ER visits, CT showed pulmonary nodule. left AMA and did not follow up. --now presented with constitutional symptoms and increased shortness of breath. --CT of the chest showed multiple lung nodules, largest in the right upper lobe measured about 5.9 cm. --most likely metastatic esophageal cancer. --Clinically, has dysphagia worse over the last 3-4 months. --CT abdomen and pelvis no mets. --GI consulted EGD pending --if GI w/u neg, can biopsy one of the lung lesions to establish a diagnosis. --if she is confirmed to have metastatic esophageal cancer, this is not a curable disease. Palliative chemotherapy may relieve some of her symptoms and prolong her survival. Assessment 71y/o female with multiple lung masses consistent with metastatic disease, initially presented to the hospital with increased weakness, dysphagia, and frequent falls. h/o Esophageal squamous cell carcinoma treated with radiation with cisplatin, 5- FU in March of 2004. Atrial fibrillation. Tobacco abuse. Chronic obstructive pulmonary disease Hypertension Alcohol abuse. Multiple EGDs with dilatation Hysterectomy. Cartilage removed from bilateral knee Hiatal hernia repair. PEG tube placement and removal . Plan 1. discussed pathology results 2. if patient would like we can consult hospice. patient clear for discharge home. Attending Statement The exam, history, and the medical decision-making described in the above note were completed with the assistance of the mid-level provider. I reviewed and agree with the findings presented. I attest that I had a [id number] encounter with the patient on the same day, and personally performed and documented my assessment and findings in the medical record. Dysphagia slightly better. Review pathology report with pt. Told her she has mets esophageal cancer and it is not curable. Palliative chemotherapy may relieve some of the symptoms and prolong survival. She however does not want chemo. We discussed comfort care with hospice but she would like to talk to her significant other first. She decline hospice consult at this time. I told her she will developed significant dysphagia again due to the tumor. We discussed PEG tube placement vs esophageal stent placement. She does not want to make a decision at this time. I have discussed with . Claritza Arechiga May 22, 2016 11:41 Eron Weinstein MD May 22, 2016 12:32
[2016-05-22 12:00] VITALS: BP 112/56; PULSE 88; RESP 20; TEMP 97.6; O2SAT 98
--- NOTE | 2016-05-22 12:32 | HHI.PR ---
Subjective Remarks S/P EGD with dilatation 05/20 sleeping, awakes to voice, somnolent spoke to hematology/onc PA today, aware of path report doesn't want chemo "I don't do well with it" also discussed possibility of peg vs esophageal stent per GI rec. she adamantly doesn't want peg and will consider stent wants to talk to boyfriend, but has not been able to reach him requesting that I speak to him and update him has no complaints emphasizes that she wants quality of life, not interested in hospice yet Objective Objective Results - Vital Signs Date Time Temp Pulse Resp B/P Pulse Ox O2 Delivery O2 Flow Rate FiO2 05/22/16 08:06 64 05/22/16 08:00 Room Air 05/22/16 08:00 97.8 80 20 121/76 98 05/22/16 04:58 97.7 82 16 132/71 98 05/21/16 20:15 Room Air 05/21/16 20:00 98.4 87 16 103/64 96 05/21/16 16:00 98.4 83 18 150/86 98 I/O 05/21/16 05/21/16 05/21/16 05/22/16 05/22/16 05/22/16 07:00 15:00 23:00 07:00 15:00 23:00 Intake Total 240 ml 480 ml 240 ml 480 ml Balance 240 ml 480 ml 240 ml 480 ml Intake Oral 240 ml 480 ml 240 ml 480 ml # Voids 2 3 2 2 # Bowel Movements 0 1 0 0 Result Diagram: 05/21/16 0606 05/21/16 0606 Imaging Last Impressions Tibia/Fibula X-Ray 05/15/16 1446 Signed Impressions: Service Date/Time: Sunday, May 15, 2016 16:13 - CONCLUSION: No acute disease. Jo Raines MD Head CT 05/15/16 1446 Signed Impressions: Service Date/Time: Sunday, May 15, 2016 15:53 - CONCLUSION: Negative for acute traumatic injury. Gerardo Tang MD FACR Foot X-Ray 05/15/16 1446 Signed Impressions: Service Date/Time: Sunday, May 15, 2016 16:07 - CONCLUSION: No acute disease. Jo Raines MD Femur X-Ray 05/15/16 1446 Signed Impressions: Service Date/Time: Sunday, May 15, 2016 17:09 - CONCLUSION: 1. No acute fracture. 2. Benign periosteal reaction distal femur. Kory Villa MD Chest X-Ray 05/15/16 1446 Signed Impressions: Service Date/Time: Sunday, May 15, 2016 16:05 - CONCLUSION: Multiple pulmonary masses. These appear grossly stable as compared to the prior plain film of the chest dated February 22, 2016.. Jo Raines MD Abdomen/Pelvis CT 05/15/16 1446 Signed Impressions: Service Date/Time: Sunday, May 15, 2016 15:57 - CONCLUSION: Abnormal lung exam with a irregular 1.3 cm mass identified within the right lower lung. Given the morphology this could represent a small lung cancer in a background setting of chronic interstitial lung disease. If not previously performed recommend CT of the thorax to evaluate for additional lesions. No evidence of metastatic disease to the adrenal glands or liver. Jo Raines MD Pelvis X-Ray 05/15/16 0000 Signed Impressions: Service Date/Time: Sunday, May 15, 2016 17:07 - CONCLUSION: Unremarkable examination of the pelvis. Tito Gonzales MD Chest CT 05/15/16 0000 Signed Impressions: Service Date/Time: Sunday, May 15, 2016 17:57 - CONCLUSION: 1. Multiple bilateral pulmonary masses the largest in the posterior right upper lobe measuring 5.9 x 4.2 cm. Some of these masses contain cavitation. This is likely secondary to metastatic disease. 2. Ascending aortic aneurysm measuring 4.6 cm. 3. Sclerotic severe compression deformity of what appears to be T6. Kory Villa MD ROS General: Other (somnolent poor historian ) Physical Exam Physical Exam GENERAL: This is a malnourished, chronically ill-appearing female. SKIN: No rashes, ecchymoses or lesions. Cool and dry. HEAD: Atraumatic. Normocephalic. No temporal or scalp tenderness. EYES: Pupils equal round and reactive. Extraocular motions intact. No scleral icterus. No injection or drainage. ENT: Nose without bleeding, purulent drainage or septal hematoma. Oropharynx is noted with small patches of thrush, mild erythema. No exudate. Uvula midline. Airway patent. NECK: Trachea midline. No JVD or lymphadenopathy. Supple, nontender, no meningeal signs. CARDIOVASCULAR: Regular rate and rhythm without murmurs, gallops, or rubs. RESPIRATORY: exp. wheeze GASTROINTESTINAL: Abdomen soft, non-tender, nondistended. No hepato-splenomegaly , or palpable masses. No guarding. MUSCULOSKELETAL: Extremities without clubbing, cyanosis, or edema. No joint tenderness, effusion, or edema noted. No calf tenderness. Negative Homans sign bilaterally. Complaints of pain to palpation of all extremities, no joint abnormalities noted. NEUROLOGICAL: Awakes to voice, alert oriented 3. No focal deficits. Speech is clear. Poor historian. Urinary Catheter: No Vascular Central Line Catheter: No A/P Diagnosis: (1) Weakness (2) Falls (3) Malignant neoplasm of both lungs (4) Hypothyroidism (5) Syncope (6) Esophageal cancer Plan: HX OF ESOPHAGEAL CANCER, PRIOR CHEMO AND RADIATION (7) COPD (chronic obstructive pulmonary disease) (8) Cough (9) Dysphagia (10) HTN (hypertension) (11) Non-compliance (12) Polysubstance abuse (13) Anemia (14) Ascending aortic aneurysm Assessment and Plan 71-year-old female, prior history esophageal cancer in 2015 treated with radiation and chemotherapy, failed to follow up for oncologic surveillance. Presented to emergency room with weakness, shortness of breath, pain, weight loss, poor appetite. Found with multiple bilateral pulmonary masses, large mass to the right upper lobe, some other masses containing cavitation, also noted with sclerotic severe compression deformity of what appears to be T6. -Appreciate Dr. Larkin's input, recommended onc input. -Appreciate Dr. Weinstein''s input, recommends GI consult due to dysphagia. Lung masses likely esophageal mets -CEA level elevated -Lung bx cancelled -Esophageal bx back- squamous cell carcinoma. Pt. informed of findings by Prabhu PARKS-doesn't want chemo. Declines hospice at this time COPD with chronic bronchitis DuoNeb's 4 times a day and when necessary Tachycardia, initially thought to be due to dehydration. Improved -continue low dose Atenolol 12.5 mg po bid Anemia, etiology unclear Iron profile results noted, low iron stores We will check stools for occult blood-pending -HH stable Complaining of dysphagia, prior history with last EGD with dilatation in 2015. -Swallow evaluation results noted, continue regular diet. -GI input appreciated -S/P EGD with dilatation 05/20 -Barium swallow done today, esophageal irregularity, no obstruction -GI recommends esophageal stent vs peg, pt. adamantly refuses. Would consider stent after she speaks to boyfriend. Thrush -Nystatin swish and swallow 4 times a day Hypothyroid, has been noncompliant with medications, TSH 19.9 -Continue Synthroid at 50 g daily, needs to follow up as outpatient with PCP for repeat TSH in 6 weeks. Polysubstance abuse, alcohol level 40-stable -Monitor for withdrawal symptoms -Folic acid and thiamine -Continue with Xanax when necessary -Counselled about substance abuse. History of A. fib, currently sinus rhythm, on Xarelto with poor compliance -Continuous cardiac telemetry -Continue to hold Xarelto, may need more dx work up if EGD negative Ascending aortic aneurysm measuring 4.6 cm (previous CT chest measurement 4.5 cm ) -continue to monitor, stable Generalized weakness with falls and possible syncope -Physical therapy for evaluation and treatment SCDs for DVT prophylaxis Protonix for GI prophylaxis left message for Yariel Alejo ([place]), no answer. DC planning soon after she has stent if agreeable. Doesn't want peg Discussed hospice services, informed that they can do at home. She wants to talk to boyfriend D/W RN D/W /Prabhu PARKS D/W pt This patient was seen by myself and Dr. Ramos, this note is written on his behalf Problem Qualifiers (1) Falls: Qualified Code: W19.XXXS - Falls, sequela (2) Hypothyroidism: Qualified Code: E03.9 - Hypothyroidism, unspecified type (3) Syncope: Qualified Code: R55 - Syncope, unspecified syncope type (4) COPD (chronic obstructive pulmonary disease): (5) Dysphagia: Qualified Code: R13.10 - Dysphagia, unspecified type (6) HTN (hypertension): Qualified Code: I10 - Essential hypertension (7) Anemia: Qualified Code: D64.9 - Anemia, unspecified type Velma Rosales May 22, 2016 12:32
[2016-05-22 16:00] VITALS: BP 131/63; PULSE 83; RESP 20; TEMP 97.8; O2SAT 98
--- NOTE | 2016-05-22 16:27 | HHI.GIFU ---
Subjective Remarks Resting in bed. States that she was informed of the biopsy results and that she has decided that there is no way she will go through chemotherapy again or have a peg tube placed again. She would like to proceed with the egd with esophageal stent placement. She is currently tolerating diet. (Jeanne Casillas) Objective Vitals I&O Vital Signs Date Time Temp Pulse Resp B/P Pulse Ox O2 Delivery O2 Flow Rate FiO2 05/22/16 08:06 64 05/22/16 08:00 Room Air 05/22/16 08:00 97.8 80 20 121/76 98 05/22/16 04:58 97.7 82 16 132/71 98 05/21/16 20:15 Room Air 05/21/16 20:00 98.4 87 16 103/64 96 I/O 05/21/16 05/21/16 05/21/16 05/22/16 05/22/16 05/22/16 07:00 15:00 23:00 07:00 15:00 23:00 Intake Total 240 ml 480 ml 240 ml 480 ml 2 ml Balance 240 ml 480 ml 240 ml 480 ml 2 ml Intake Oral 240 ml 480 ml 240 ml 480 ml IV Total 2 ml # Voids 2 3 2 2 # Bowel Movements 0 1 0 0 Imaging Last Impressions Barium Swallow X-Ray 05/20/16 0000 Signed Impressions: Service Date/Time: Friday, May 20, 2016 10:40 - CONCLUSION: 1. I do not see evidence for a fixed obstruction. 2. Minimal irregularity in the mid esophagus that could be site of primary. 3. I have no prior studies for comparison. 4. There is no aspiration. Gerardo Tang MD FACR Tibia/Fibula X-Ray 05/15/161445 Signed Impressions: Service Date/Time: Sunday, May 15, 2016 16:13 - CONCLUSION: No acute disease. Jo Raines MD Head CT 05/15/161445 Signed Impressions: Service Date/Time: Sunday, May 15, 2016 15:53 - CONCLUSION: Negative for acute traumatic injury. Gerardo Tang MD FACR Foot X-Ray 05/15/166 Signed Impressions: Service Date/Time: Sunday, May 15, 2016 16:07 - CONCLUSION: No acute disease. Jo Raines MD Femur X-Ray 05/15/16 1446 Signed Impressions: Service Date/Time: Sunday, May 15, 2016 17:09 - CONCLUSION: 1. No acute fracture. 2. Benign periosteal reaction distal femur. Kory Villa MD Chest X-Ray 05/15/16 1446 Signed Impressions: Service Date/Time: Sunday, May 15, 2016 16:05 - CONCLUSION: Multiple pulmonary masses. These appear grossly stable as compared to the prior plain film of the chest dated February 22, 2016.. Jo Raines MD Abdomen/Pelvis CT 05/15/16 1446 Signed Impressions: Service Date/Time: Sunday, May 15, 2016 15:57 - CONCLUSION: Abnormal lung exam with a irregular 1.3 cm mass identified within the right lower lung. Given the morphology this could represent a small lung cancer in a background setting of chronic interstitial lung disease. If not previously performed recommend CT of the thorax to evaluate for additional lesions. No evidence of metastatic disease to the adrenal glands or liver. Jo Raines MD Pelvis X-Ray 05/15/16 0000 Signed Impressions: Service Date/Time: Sunday, May 15, 2016 17:07 - CONCLUSION: Unremarkable examination of the pelvis. Tito Gonzales MD Chest CT 05/15/16 0000 Signed Impressions: Service Date/Time: Sunday, May 15, 2016 17:57 - CONCLUSION: 1. Multiple bilateral pulmonary masses the largest in the posterior right upper lobe measuring 5.9 x 4.2 cm. Some of these masses contain cavitation. This is likely secondary to metastatic disease. 2. Ascending aortic aneurysm measuring 4.6 cm. 3. Sclerotic severe compression deformity of what appears to be T6. Kory Villa MD Physical Exam CHEST: Resp. even/unlabored. CARDIAC: RRR ABDOMEN: Soft, nondistended, nontender; no hepatosplenomegaly; bowel sounds are present in all four quadrants. EXTREMITIES: No clubbing, cyanosis, or edema. SKIN: Normal; no rash; no jaundice. RISK ENGINEER: No focal deficits; alert and oriented times three. (Jeanne Casillas) Assessment and Plan Plan ASSESSMENT 1. Multiple lung masses most consistent with metastatic disease. S/P EGD ()---> Long stricture in middle third of esophagus, multiple biopsies, retroflexed views revealed no abnormalities. Barium swallow (05/20/16)----> 1. I do not see evidence for a fixed obstruction. 2. Minimal irregularity in the mid esophagus that could be site of primary. 3. I have no prior studies for comparison. 4. There is no aspiration. GS, oncology on the case. IR consulted for lung bx. Path from EGD with invasive poorly differentiated squamous cell carcinoma. Pt reports that she does not wish to pursue chemotherapy or PEG tube placement. She would like to have esophageal stent placed. Will schedule for tomorrow. Oncology following. 2. 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 She, however, was noncompliant and has not followed up. S/P EGD (05/20/16)---> Long stricture in middle third of esophagus, multiple biopsies, retroflexed views revealed no abnormalities. Pathology with invasive poorly differentiated squamous cell carcinoma. Barium swallow ()----> 1. I do not see evidence for a fixed obstruction. 2. Minimal irregularity in the mid esophagus that could be site of primary. 3. I have no prior studies for comparison. 4. There is no aspiration. EGD with esophageal stent placement in am. 3. Proximal atrial fibrillation, COPD, Tobacco dependence Plan: - Plan for egd with esophageal stent placement in am - Obtain consents - NPO after MN - PPI - GS, Oncology on the case - Supportive care - Pt seen and examined by Dr. Robbins and myself and this note is written on his behalf (Jeanne Casillas) Physician Comments Seen and examined with Ms. Sonja BUSTOS, egd/stent planned for tomorrow. DIscussed with DRs. Weinstein and Mary. (Zach Robbins MD) Jeanne Casillas May 22, 2016 16:26 Zach Robbins MD May 23, 2016 16:25
--- NOTE | 2016-05-22 17:55 | HHI.DCPOC ---
Discharge Care Plan Diagnosis: (1) Malignant neoplasm of both lungs (2) Lung mass (3) Weakness (4) Hypothyroidism (5) Syncope Your Health Problems Are: Anxiety Chest Pain Loss of Movements Cough Shortness of Breath Goals to Promote Your Health * To prevent worsening of your condition and complications * To maintain your health at the optimal level Directions to Meet Your Goals Take your medications as prescribed Follow your dietary instruction Follow activity as directed Keep your appointments as scheduled Take your immunizations and boosters as scheduled If your symptoms worsen call your PCP, if no PCP go to Urgent Care Center or Emergency Room Smoking is Dangerous to Your Health. Avoid second hand smoke Call the 24-hour hour crisis hotline for domestic abuse at Velma Rosales May 22, 2016 17:55
--- NOTE | 2016-05-22 17:57 | HHI.FF ---
Face to Face Verification Diagnosis: (1) Weakness (2) Syncope (3) Esophageal cancer (4) Polysubstance abuse (5) Malignant neoplasm of both lungs (6) Lung mass Home Health Nursing Order: Medical education Signs/symptoms of disease process Nursing assessment with vital signs Die Fitter Order: To Evaluate: Living conditions/environment, Support services (recurrent cancer, doesn't want chemo, can benefit from hospice -declining at this time ) I have seen patient Sofi Vick on 05/22/16. My clinical findings support the need for the requested home health care services because: Deconditioned w/ increased weakness Need for psychosocial assistance I certify that my clinical findings support that this patient is homebound because: Hx COPD- exertion dyspnea/weakness Need for psychosocial assistance Velma RosalesP May 22, 2016 17:57
[2016-05-22 22:42] VITALS: BP 117/68; PULSE 77; RESP 16; TEMP 97.9; O2SAT 98
[2016-05-23] MEDS: LACTATED RINGER'S 1000 ML IV SCH (00:15)
[2016-05-23 00:36] VITALS: BP 113/66; PULSE 78; RESP 16; TEMP 98.3; O2SAT 96
[2016-05-23 05:40] VITALS: BP 116/66; PULSE 76; RESP 16; TEMP 97.6; O2SAT 97
[2016-05-23] MEDS: LEVOTHYROXINE SODIUM 50 MCG TAB PO SCH (06:02)
[2016-05-23] MEDS: ACETAMINOPHEN/HYDROcodone 325 MG/10 MG TAB PO PRN ×2 (06:02→21:18)
[2016-05-23 08:00] VITALS: BP 126/71; PULSE 66; RESP 20; TEMP 97.9; O2SAT 99
[2016-05-23] MEDS: NYSTATIN SUSP 500,000 U/5 ML CUP SWISH-SWAL SCH ×4 (09:00→21:18)
[2016-05-23] MEDS: ALPRAZolam 1 MG TAB PO PRN (09:49)
[2016-05-23] MEDS: THIAMINE HCL 100 MG TAB PO SCH (09:49)
[2016-05-23] MEDS: FOLIC ACID 1 MG TAB PO SCH (09:49)
[2016-05-23] MEDS: PANTOPRAZOLE SOD 40 MG DELAYED RELEASE TAB PO SCH (09:50)
[2016-05-23] MEDS: ATENOLOL 25 MG TAB PO SCH ×2 (09:50→21:19)
--- NOTE | 2016-05-23 10:31 | HHI.PR ---
Subjective History of Present Illness I am ok " hungry" waiting for procedure NO N/V No Abd pain NO CP or SOB NO cough or sputum NO fever or chills Vitals/Results Intake & Output 05/22/16 05/22/16 05/23/16 15:00 23:00 07:00 Intake Total 1082 ml 720 ml 240 ml Balance 1082 ml 720 ml 240 ml Intake Oral 1080 ml 720 ml 240 ml IV Total 2 ml # Voids 3 4 2 # Bowel Movements 1 1 0 Vital Signs Vital Signs Date Time Temp Pulse Resp B/P Pulse Ox O2 Delivery O2 Flow Rate FiO2 05/23/16 09:05 Room Air 05/23/16 05:40 97.6 76 16 116/66 97 05/23/16 00:36 98.3 78 16 113/66 96 05/23/16 00:36 Room Air 05/22/16 22:42 97.9 77 16 117/68 98 05/22/16 22:42 Room Air 05/22/16 16:00 97.8 83 20 131/63 98 05/22/16 12:00 97.6 88 20 112/56 98 CBC/BMP: 05/21/16 0606 05/21/16 0606 Physical Exam General General Appearance: No Acute Distress, Comfortable Eyes Eye Exam: Sclera White, Extraocular Movement Intact Ears & Nose Ears & Nose Exam: Nasal Mucosa [place] Throat Throat Exam: Oral Mucosa [place] & Moist Neck Neck Exam: Neck Supple, Trachea Midline Pulmonary Resp Exam: Clear Bilaterally, No Distress Cardiology CV Exam: Regular, Normal Sinus Rhythm Gastrointestinal/Abdomen GI Exam: Soft, Non-Tender, Bowel Sounds Present Musculoskeletal MS Exam: Normal Gait, Normal Tone Integumentary Skin Exam: Warm, Dry Extremeties Extremities Exam: No Edema, Pedal Pulses Palpable Neurologic Neuro Exam: Alert, Awake, Oriented, Speech Clear, Moving All Extremities Psychiatric Psych Exam: Appropriate Responses PUD Prophylasis PUD Prophylaxis: Protonix Assessment/Plan Assessment/Plan Diagnosis: (1) Weakness (2) s/ p Falls d/t weakness /dehydration (3) dysphagia d/t progressive esophageal ca (4) Hypothyroidism (5) Syncope (6) Metastatic Esophageal cancer w b/l pulmonary mets (7) COPD (chronic obstructive pulmonary disease) (8) Cough better (9) Dysphagia (10) HTN (hypertension) (11) Hx of A fib , currently in SR (12) Polysubstance abuse (13) Non-compliance (14) Ascending aortic aneurysm Assessment and Plan 71-year-old female, prior history esophageal cancer in 2014 treated with radiation and chemotherapy, failed to follow up for oncologic surveillance. Presented to emergency room with weakness, shortness of breath, pain, weight loss, poor appetite. Found with multiple bilateral pulmonary masses, large mass to the right upper lobe, some other masses containing cavitation, also noted with sclerotic severe compression deformity of what appears to be T6. - s/p EGD & bx , Path +ve malignancy/squamous cell carcinoma -CEA level elevated -Lung bx cancelled -Oncology Rec palliative chemo / Pt refused it - she also refused PEG placement & agreed for EGD & stent - she also agreed w hospice consult COPD with chronic bronchitis DuoNeb's 4 times a day and when necessary Tachycardia, initially thought to be due to dehydration. Improved -continue low dose Atenolol 12.5 mg po bid Anemia, etiology unclear Iron profile results noted, low iron stores We will check stools for occult blood-pending -HH stable Complaining of dysphagia, prior history with last EGD with dilatation in 2015. -Swallow evaluation results noted, continue regular diet. -GI input appreciated -S/P EGD with dilatation 05/20 -Barium swallow done today, esophageal irregularity, no obstruction -GI recommends esophageal stent vs peg, pt Agreed w Stent Thrush -Nystatin swish and swallow 4 times a day/ better Hypothyroid, has been noncompliant with medications, TSH 19.9 -Continue Synthroid at 50 g daily, needs to follow up as outpatient with PCP for repeat TSH in 6 weeks. Polysubstance abuse, alcohol level 40-stable -Monitor for withdrawal symptoms -Folic acid and thiamine -Continue with Xanax when necessary -Counselled about substance abuse. History of A. fib, currently sinus rhythm, was on Xarelto with poor compliance -Continue to hold Xarelto, d/t progressive ca / high risk of bleeding Ascending aortic aneurysm measuring 4.6 cm (previous CT chest measurement 4.5 cm ) -continue to monitor, stable Generalized weakness with falls and possible syncope -Physical therapy for evaluation and treatment Plan is for pt to be d./c home today w hospice after EGD & stent d/w PT d/w RN see MRS overall prognosis is very poor f/u pcp Jennyfer Ramos MD May 23, 2016 10:31
--- NOTE | 2016-05-23 11:45 | PD.ONC.PN ---
Subjective Subjective Remarks Afebrile overnight. Patient tired this AM. She is awaiting stent placement in GI lab today. Objective Data Date Time Temp Pulse Resp B/P Pulse Ox O2 Delivery O2 Flow Rate FiO2 05/23/16 09:05 Room Air 05/23/16 05:40 97.6 76 16 116/66 97 05/23/16 00:36 98.3 78 16 113/66 96 05/23/16 00:36 Room Air 05/22/16 22:42 97.9 77 16 117/68 98 05/22/16 22:42 Room Air 05/22/16 16:00 97.8 83 20 131/63 98 05/22/16 12:00 97.6 88 20 112/56 98 05/23/16 05/23/16 05/23/16 07:00 15:00 23:00 Intake Total 240 ml Balance 240 ml Result Diagram: 05/21/16 0606 05/21/16 0606 Administered Medications Medications (Trade) Dose Ordered Sig/Candida Route PRN Reason Start Time Stop Time Status Last Admin Dose Admin Alprazolam (Xanax) 1 mg TID PRN PO ANXIETY 05/15/16 18:45 05/23/16 09:49 Acetaminophen/ Hydrocodone Bitart ([place] 10-325 Mg) 1 tab Q6HR PRN PO PAIN 1-10 05/15/16 18:45 05/23/16 06:02 Levothyroxine Sodium (Synthroid) 50 mcg DAILY@0600 PO 05/16/16 06:00 05/23/16 06:02 Nystatin (Mycostatin Liq) 5 ml QID SWISH-SWAL 05/16/16 13:00 05/22/16 23:06 Pantoprazole Sodium (Protonix) 40 mg DAILY PO 05/16/16 12:30 05/23/16 09:50 Folic Acid (Folate) 1 mg DAILY PO 05/16/16 13:00 05/23/16 09:49 Thiamine HCl (Vitamin B1) 100 mg DAILY PO 05/16/16 13:00 05/23/16 09:49 Atenolol (Tenormin) 12.5 mg Q12HR PO 05/17/16 11:00 05/23/16 09:50 Objective Remarks GENERAL: Middle aged female, lying in bed, resting. SKIN: Warm and dry. HEAD: Normocephalic. EYES: No injection or drainage. NECK: Supple, trachea midline. CARDIOVASCULAR: +S1/S2 RESPIRATORY: Breath sounds equal bilaterally. No accessory muscle use. GASTROINTESTINAL: Abdomen soft, non-tender, mildly distended. EXTREMITIES: No cyanosis NEUROLOGICAL: awake and alert, oriented x 3. normal speech Assessment/Plan Problem List: (1) Lung mass Status: Acute Plan: 05/23/16: GI stent placement today. hospice consulted. History/Workup: --Multiple lung masses most consistent with metastatic disease. --history of esophageal squamous cell carcinoma treated with radiation and chemotherapy at the end of 2013. --was noncompliant and has not followed up. --February 2016, during one of her ER visits, CT showed pulmonary nodule. left AMA and did not follow up. --now presented with constitutional symptoms and increased shortness of breath. --CT of the chest showed multiple lung nodules, largest in the right upper lobe measured about 5.9 cm. --most likely metastatic esophageal cancer. --Clinically, has dysphagia worse over the last 3-4 months. --CT abdomen and pelvis no mets. --GI consulted EGD pending --if GI w/u neg, can biopsy one of the lung lesions to establish a diagnosis. --if she is confirmed to have metastatic esophageal cancer, this is not a curable disease. Palliative chemotherapy may relieve some of her symptoms and prolong her survival. Assessment 71y/o female with multiple lung masses consistent with metastatic disease, initially presented to the hospital with increased weakness, dysphagia, and frequent falls. h/o Esophageal squamous cell carcinoma treated with radiation with cisplatin, 5- FU in March of 2004. Atrial fibrillation. Tobacco abuse. Chronic obstructive pulmonary disease Hypertension Alcohol abuse. Multiple EGDs with dilatation Hysterectomy. Cartilage removed from bilateral knee Hiatal hernia repair. PEG tube placement and removal . Plan 1. stent placement per GI 2. hospice consult Attending Statement The exam, history, and the medical decision-making described in the above note were completed with the assistance of the mid-level provider. I reviewed and agree with the findings presented. I attest that I had a [id number] encounter with the patient on the same day, and personally performed and documented my assessment and findings in the medical record. She has decided to have esophageal stent placement. No new symptoms. Await hospice consult. Claritza Arechiga May 23, 2016 11:45 Eron Weinstein MD May 23, 2016 15:54
[2016-05-23] MEDS ORDERED: KETAMINE HCL 500 MG/5 ML VIAL ONE (11:47)
[2016-05-23] MEDS ORDERED: XANA1TAB2 PO (11:58)
[2016-05-23] MEDS ORDERED: HYDR-3583 PO (11:58)
[2016-05-23 12:00] VITALS: BP 137/75; PULSE 64; RESP 20; TEMP 97.8; O2SAT 99
[2016-05-23] MEDS ORDERED: DO NOT ADM ANY ANTICOAGULANT DRUGS XX PRN (14:20)
[2016-05-23] MEDS ORDERED: *morphine SULFATE 8 MG/ML PERIprocedure ONLY ONE (14:37)
[2016-05-23] MEDS ORDERED: PROPOFOL 200 MG/20 ML AMP IV ONE (14:57)
--- NOTE | 2016-05-23 15:10 | RADRPT ---
EXAM DATE/TIME: 05/23/2016 14:06 [facility] COMPARISON: No previous studies available for comparison. INDICATIONS : Esophageal stent. FLUORO TIME: 10 minutes IMAGE COUNT: CONTRAST: Instilled by Ordering Physician MEDICAL HISTORY : Carcinoma, esophageal. SURGICAL HISTORY : None. ENCOUNTER: Initial ACUITY: 4 - 6 days PAIN SCORE: 0/10 LOCATION: chest FINDINGS: Esophageal stents in place in the mid esophagus. Stent is well expanded. CONCLUSION: 1. Postsurgical changes as above. Jose L Best MD on May 23, 2016 at 15:09 Board Certified Radiologist. This report was verified electronically.
[2016-05-23 16:00] VITALS: BP 156/77; PULSE 70; RESP 20; TEMP 97.5; O2SAT 98
[2016-05-23 20:00] VITALS: BP 173/91; PULSE 86; RESP 17; TEMP 97.1; O2SAT 97
[2016-05-24] VITALS: BP 158/94; PULSE 79; RESP 18; TEMP 98.3; O2SAT 97
[2016-05-24] MEDS: LACTATED RINGER'S 1000 ML IV SCH (00:15)
[2016-05-24] MEDS: ACETAMINOPHEN/HYDROcodone 325 MG/10 MG TAB PO PRN ×2 (03:21→09:39)
[2016-05-24] MEDS: ALPRAZolam 1 MG TAB PO PRN (03:51)
[2016-05-24 04:00] VITALS: BP 178/95; PULSE 75; RESP 18; TEMP 98.2; O2SAT 94
[2016-05-24] MEDS: LEVOTHYROXINE SODIUM 50 MCG TAB PO SCH (06:32)
[2016-05-24 08:26] VITALS: BP 162/85; PULSE 82; RESP 20; TEMP 98.1; O2SAT 96
[2016-05-24] MEDS: THIAMINE HCL 100 MG TAB PO SCH (09:39)
[2016-05-24] MEDS: ATENOLOL 25 MG TAB PO SCH (09:39)
[2016-05-24] MEDS: FOLIC ACID 1 MG TAB PO SCH (09:39)
[2016-05-24] MEDS: PANTOPRAZOLE SOD 40 MG DELAYED RELEASE TAB PO SCH (09:39)
[2016-05-24] MEDS: NYSTATIN SUSP 500,000 U/5 ML CUP SWISH-SWAL SCH ×2 (09:39→13:19)
[2016-05-24] MEDS ORDERED: MORPHINE SULFATE 4 MG/ML INJ IV PUSH ONE (10:30)
--- NOTE | 2016-05-24 10:32 | PD.ONC.PN ---
Subjective Subjective Remarks Afebrile overnight. Patient complaining of acid reflux type pain since stent placement yesterday. She is still waiting on her boyfriend to arrive so she can talk to hospice. Objective Data Date Time Temp Pulse Resp B/P Pulse Ox O2 Delivery O2 Flow Rate FiO2 05/24/16 08:26 98.1 82 20 162/85 96 05/24/16 04:00 98.2 75 18 178/95 94 05/24/16 00:00 98.3 79 18 158/94 97 05/23/16 20:00 Room Air 05/23/16 20:00 97.1 86 17 173/91 97 05/23/16 16:00 97.5 70 20 156/77 98 05/23/16 14:50 69 16 96 Room Air 05/23/16 14:45 97.6 68 16 149/92 95 Room Air 05/23/16 14:42 16 05/23/16 14:30 73 16 145/90 98 Nasal Cannula 4 05/23/16 14:20 97.5 102 16 147/91 93 Nasal Cannula 4 05/23/16 12:00 97.8 64 20 137/75 99 05/24/16 05/24/16 05/24/16 07:00 15:00 23:00 Intake Total 240 ml Balance 240 ml Result Diagram: 05/21/1660505/21/16 0606 Administered Medications Medications (Trade) Dose Ordered Sig/Candida Route PRN Reason Start Time Stop Time Status Last Admin Dose Admin Alprazolam (Xanax) 1 mg TID PRN PO ANXIETY 05/15/16 18:45 05/24/16 03:51 Acetaminophen/ Hydrocodone Bitart ([place] 10-325 Mg) 1 tab Q6HR PRN PO PAIN 1-10 05/15/16 18:45 05/24/16 09:39 Levothyroxine Sodium (Synthroid) 50 mcg DAILY@0600 PO 05/16/16 06:00 05/24/16 06:32 Nystatin (Mycostatin Liq) 5 ml QID SWISH-SWAL 05/16/16 13:00 05/24/16 09:39 Pantoprazole Sodium (Protonix) 40 mg DAILY PO 05/16/16 12:30 05/24/16 09:39 Folic Acid (Folate) 1 mg DAILY PO 05/16/16 13:00 05/24/16 09:39 Thiamine HCl (Vitamin B1) 100 mg DAILY PO 05/16/16 13:00 05/24/16 09:39 Atenolol (Tenormin) 12.5 mg Q12HR PO 05/17/16 11:00 05/24/16 09:39 Objective Remarks GENERAL: Middle aged female, sitting up in bed in nad. SKIN: Warm and dry. HEAD: Normocephalic. EYES: No injection or drainage. NECK: Supple, trachea midline. CARDIOVASCULAR: +S1/S2 RESPIRATORY: Breath sounds equal bilaterally. No accessory muscle use. GASTROINTESTINAL: Abdomen soft, non-tender, mildly distended. EXTREMITIES: No cyanosis NEUROLOGICAL: AO x 3. normal speech. no focal deficit. Assessment/Plan Problem List: (1) Lung mass Status: Acute Plan: 05/24/16: esophageal stent placed yesterday. hospice returning today for meeting with patient and s/o History/Workup: --Multiple lung masses most consistent with metastatic disease. --history of esophageal squamous cell carcinoma treated with radiation and chemotherapy at the end of 2013. --was noncompliant and has not followed up. --February 2016, during one of her ER visits, CT showed pulmonary nodule. left AMA and did not follow up. --now presented with constitutional symptoms and increased shortness of breath. --CT of the chest showed multiple lung nodules, largest in the right upper lobe measured about 5.9 cm. --most likely metastatic esophageal cancer. --Clinically, has dysphagia worse over the last 3-4 months. --CT abdomen and pelvis no mets. --GI consulted EGD pending --if GI w/u neg, can biopsy one of the lung lesions to establish a diagnosis. --if she is confirmed to have metastatic esophageal cancer, this is not a curable disease. Palliative chemotherapy may relieve some of her symptoms and prolong her survival. Assessment 71y/o female with multiple lung masses consistent with metastatic disease, initially presented to the hospital with increased weakness, dysphagia, and frequent falls. h/o Esophageal squamous cell carcinoma treated with radiation with cisplatin, 5- FU in March of 2004. Atrial fibrillation. Tobacco abuse. Chronic obstructive pulmonary disease Hypertension Alcohol abuse. Multiple EGDs with dilatation Hysterectomy. Cartilage removed from bilateral knee Hiatal hernia repair. PEG tube placement and removal . Plan 1. one time order of morphine for pain 2. await hospice consult Attending Statement The exam, history, and the medical decision-making described in the above note were completed with the assistance of the mid-level provider. I reviewed and agree with the findings presented. I attest that I had a [id number] encounter with the patient on the same day, and personally performed and documented my assessment and findings in the medical record. S/p esophageal stent placement. +ALBA discomfort. She does not want aggressive treatment. Await hospice placement. Claritza Arechiga May 24, 2016 10:32 Eron Weinstein MD May 24, 2016 15:35
--- NOTE | 2016-05-24 11:25 | HHI.PR ---
Subjective History of Present Illness I am ok no new problems ready to go home " I want to spend quality time at my home " NO N/V No Abd pain NO CP or SOB NO cough or sputum NO fever or chills Vitals/Results Intake & Output 05/23/16 05/23/16 05/24/16 15:00 23:00 07:00 Intake Total 252 ml 860 ml 240 ml Balance 252 ml 860 ml 240 ml Intake Oral 0 ml 860 ml 240 ml IV Total 52 ml Other 200 ml # Voids 3 2 1 # Bowel Movements 2 2 0 Vital Signs Vital Signs Date Time Temp Pulse Resp B/P Pulse Ox O2 Delivery O2 Flow Rate FiO2 05/24/16 08:26 98.1 82 20 162/85 96 05/24/16 04:00 98.2 75 18 178/95 94 05/24/16 00:00 98.3 79 18 158/94 97 05/23/16 20:00 Room Air 05/23/16 20:00 97.1 86 17 173/91 97 05/23/16 16:00 97.5 70 20 156/77 98 05/23/16 14:50 69 16 96 Room Air 05/23/16 14:45 97.6 68 16 149/92 95 Room Air 05/23/16 14:42 16 05/23/16 14:30 73 16 145/90 98 Nasal Cannula 4 05/23/16 14:20 97.5 102 16 147/91 93 Nasal Cannula 4 05/23/16 12:00 97.8 64 20 137/75 99 CBC/BMP: 05/21/16 0606 05/21/16 0606 Physical Exam General General Appearance: No Acute Distress, Comfortable Eyes Eye Exam: Sclera White, Extraocular Movement Intact Ears & Nose Ears & Nose Exam: Nasal Mucosa [place] Throat Throat Exam: Oral Mucosa [place] & Moist Neck Neck Exam: Neck Supple, Trachea Midline Pulmonary Resp Exam: Clear Bilaterally, No Distress Cardiology CV Exam: Regular, Normal Sinus Rhythm Gastrointestinal/Abdomen GI Exam: Soft, Non-Tender, Bowel Sounds Present Musculoskeletal MS Exam: Normal Gait, Normal Tone Integumentary Skin Exam: Warm, Dry Extremeties Extremities Exam: No Edema, Pedal Pulses Palpable Neurologic Neuro Exam: Alert, Awake, Oriented, Speech Clear, Moving All Extremities Psychiatric Psych Exam: Appropriate Responses PUD Prophylasis PUD Prophylaxis: Protonix Assessment/Plan Assessment/Plan Diagnosis: (1) Weakness (2) s/ p Falls d/t weakness /dehydration (3) dysphagia d/t progressive esophageal ca (4) Hypothyroidism (5) Syncope (6) Metastatic Esophageal cancer w b/l pulmonary mets (7) COPD (chronic obstructive pulmonary disease) (8) Cough better (9) Dysphagia (10) HTN (hypertension) (11) Hx of A fib , currently in SR (12) Polysubstance abuse (13) Non-compliance (14) Ascending aortic aneurysm Assessment and Plan 71-year-old female, prior history esophageal cancer in 2014 treated with radiation and chemotherapy, failed to follow up for oncologic surveillance. Presented to emergency room with weakness, shortness of breath, pain, weight loss, poor appetite. Found with multiple bilateral pulmonary masses, large mass to the right upper lobe, some other masses containing cavitation, also noted with sclerotic severe compression deformity of what appears to be T6. - s/p EGD & bx , Path +ve malignancy/squamous cell carcinoma -CEA level elevated -Lung bx cancelled -Oncology Rec palliative chemo / Pt refused it - she also refused PEG placement & agreed for EGD & stent s/p EGD w stent - she also agreed w hospice consult COPD with chronic bronchitis DuoNeb's 4 times a day and when necessary Tachycardia, initially thought to be due to dehydration. Improved -continue low dose Atenolol 12.5 mg po bid Anemia, etiology unclear Iron profile results noted, low iron stores We will check stools for occult blood-pending -HH stable Complaining of dysphagia, prior history with last EGD with dilatation in 2015. -Swallow evaluation results noted, continue regular diet. -GI input appreciated -S/P EGD with dilatation 05/20 -Barium swallow done today, esophageal irregularity, no obstruction -s/p EGD w Stent 05/23/16 Thrush -Nystatin swish and swallow 4 times a day/ better Hypothyroid, has been noncompliant with medications, TSH 19.9 -Continue Synthroid at 50 g daily, needs to follow up as outpatient with PCP for repeat TSH in 6 weeks. Polysubstance abuse, alcohol level 40-stable -Monitor for withdrawal symptoms -Folic acid and thiamine -Continue with Xanax when necessary -Counselled about substance abuse. History of A. fib, currently sinus rhythm, was on Xarelto with poor compliance -Continue to hold Xarelto, d/t progressive ca / high risk of bleeding Ascending aortic aneurysm measuring 4.6 cm (previous CT chest measurement 4.5 cm ) -continue to monitor, stable Generalized weakness with falls and possible syncope -Physical therapy for evaluation and treatment medically stable for d/c home w Hospice d/w rubber goods assembler , pt's Boyfriend was a No show for their meeting [apparently his car broke down] d/c home w Hospice today see orders see MRS f/u pcp Jennyfer Ramos MD May 24, 2016 11:25
[2016-05-24 12:12] VITALS: BP 149/75; PULSE 74; RESP 18; TEMP 97.9; O2SAT 98
--- NOTE | 2016-05-24 13:07 | HHI.GIFU ---
Subjective Remarks Resting in bed. No n/v. Tolerating diet but wants to go back on regular diet. (Jeanne Casillas) Objective Vitals I&O Vital Signs Date Time Temp Pulse Resp B/P Pulse Ox O2 Delivery O2 Flow Rate FiO2 05/24/16 12:12 97.9 74 18 149/75 98 05/24/16 08:26 98.1 82 20 162/85 96 05/24/16 04:00 98.2 75 18 178/95 94 05/24/16 00:00 98.3 79 18 158/94 97 05/23/16 20:00 Room Air 05/23/16 20:00 97.1 86 17 173/91 97 05/23/16 16:00 97.5 70 20 156/77 98 05/23/16 14:50 69 16 96 Room Air 05/23/16 14:45 97.6 68 16 149/92 95 Room Air 05/23/16 14:42 16 05/23/16 14:30 73 16 145/90 98 Nasal Cannula 4 05/23/16 14:20 97.5 102 16 147/91 93 Nasal Cannula 4 I/O 05/23/16 05/23/16 05/23/16 05/24/16 05/24/16 05/24/16 07:00 15:00 23:00 07:00 15:00 23:00 Intake Total 240 ml 252 ml 860 ml 240 ml Balance 240 ml 252 ml 860 ml 240 ml Intake Oral 240 ml 0 ml 860 ml 240 ml IV Total 52 ml Other 200 ml # Voids 2 3 2 1 # Bowel Movements 0 2 2 0 Imaging Last Impressions GI Procedure 05/23/16 0000 Signed Impressions: Service Date/Time: May 14:06 - CONCLUSION: 1. Postsurgical changes as above. Jose L Best MD Barium Swallow X-Ray 05/20/16 0000 Signed Impressions: Service Date/Time: Friday, May 20, 2016 10:40 - CONCLUSION: 1. I do not see evidence for a fixed obstruction. 2. Minimal irregularity in the mid esophagus that could be site of primary. 3. I have no prior studies for comparison. 4. There is no aspiration. Gerardo Tang MD FACR Tibia/Fibula X-Ray 1/11/17 1446 Signed Impressions: Service Date/Time: Sunday, May 15, 2016 16:13 - CONCLUSION: No acute disease. Jo Raines MD Head CT 05/15/161445 Signed Impressions: Service Date/Time: Sunday, May 15, 2016 15:53 - CONCLUSION: Negative for acute traumatic injury. Gerardo Tang MD FACR Foot X-Ray 05/15/161445 Signed Impressions: Service Date/Time: Sunday, May 15, 2016 16:07 - CONCLUSION: No acute disease. Jo Raines MD Femur X-Ray 05/15/161445 Signed Impressions: Service Date/Time: Sunday, May 15, 2016 17:09 - CONCLUSION: 1. No acute fracture. 2. Benign periosteal reaction distal femur. Kory Villa MD Chest X-Ray 05/15/161445 Signed Impressions: Service Date/Time: Sunday, May 15, 2016 16:05 - CONCLUSION: Multiple pulmonary masses. These appear grossly stable as compared to the prior plain film of the chest dated February 22, 2016.. Jo Raines MD Abdomen/Pelvis CT 05/15/161445 Signed Impressions: Service Date/Time: Sunday, May 15, 2016 15:57 - CONCLUSION: Abnormal lung exam with a irregular 1.3 cm mass identified within the right lower lung. Given the morphology this could represent a small lung cancer in a background setting of chronic interstitial lung disease. If not previously performed recommend CT of the thorax to evaluate for additional lesions. No evidence of metastatic disease to the adrenal glands or liver. Jo Raines MD Pelvis X-Ray 05/15/16 0000 Signed Impressions: Service Date/Time: Sunday, May 15, 2016 17:07 - CONCLUSION: Unremarkable examination of the pelvis. Tito Gonzales MD Chest CT 05/15/16 0000 Signed Impressions: Service Date/Time: Sunday, May 15, 2016 17:57 - CONCLUSION: 1. Multiple bilateral pulmonary masses the largest in the posterior right upper lobe measuring 5.9 x 4.2 cm. Some of these masses contain cavitation. This is likely secondary to metastatic disease. 2. Ascending aortic aneurysm measuring 4.6 cm. 3. Sclerotic severe compression deformity of what appears to be T6. Kory Villa MD Physical Exam CHEST: Resp. even/unlabored. CARDIAC: RRR ABDOMEN: Soft, nondistended, nontender; no hepatosplenomegaly; bowel sounds are present in all four quadrants. EXTREMITIES: No clubbing, cyanosis, or edema. SKIN: Normal; no rash; no jaundice. BOATBUILDER WOOD: No focal deficits; alert and oriented times three. (Jeanne Casillas DIGITAL HARDWARE DESIGN ENGINEER) Assessment and Plan Plan ASSESSMENT 1. Multiple lung masses most consistent with metastatic disease. S/P EGD ()---> Long stricture in middle third of esophagus, multiple biopsies, retroflexed views revealed no abnormalities. Barium swallow (05/20/16)----> 1. I do not see evidence for a fixed obstruction. 2. Minimal irregularity in the mid esophagus that could be site of primary. 3. I have no prior studies for comparison. 4. There is no aspiration. GS, oncology on the case. IR consulted for lung bx. Path from EGD with invasive poorly differentiated squamous cell carcinoma. Pt reports that she does not wish to pursue chemotherapy or PEG tube placement. She would like to have esophageal stent placed. S/P EGD with esophageal stent placement (05/24/16). Tolerating full liquids, but requesting regular food. She was tolerating this prior to procedure. Will order FERNANDO. Oncology following. 2. 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 She, however, was noncompliant and has not followed up. S/P EGD (05/20/16)---> Long stricture in middle third of esophagus, multiple biopsies, retroflexed views revealed no abnormalities. Pathology with invasive poorly differentiated squamous cell carcinoma. Barium swallow ()----> 1. I do not see evidence for a fixed obstruction. 2. Minimal irregularity in the mid esophagus that could be site of primary. 3. I have no prior studies for comparison. 4. There is no aspiration. EGD with esophageal stent placement in am. 3. Proximal atrial fibrillation, COPD, Tobacco dependence Plan: - FERNANDO - PPI - GS, Oncology on the case - GI will sign off, please reconsult as needed - Pt seen and examined by Dr. Robbins and myself and this note is written on his behalf (Jeanne Casillas) Physician Comments Seen and examined with Ms. Sonja BUSTOS< s/p egd/stent. Advance to soft diet. Gi will sign off, Fu in the clinic after dc. Thank you (Zach Robbins MD) Jeanne Casillas May 24, 2016 13:07 Zach Robbins MD May 24, 2016 17:13
--- NOTE | 2016-05-24 19:09 | HHI.DS ---
Discharge Summary Admission Date May 15, 2016 at 17:56 Admitting Diagnosis syncope, right lung mass, hypothyroidism (1) Weakness Diagnosis: Secondary (2) Falls Diagnosis: Secondary (3) Malignant neoplasm of both lungs Diagnosis: Principal (4) Hypothyroidism Diagnosis: Secondary (5) Syncope Diagnosis: Secondary (6) Esophageal cancer Diagnosis: Principal (7) COPD (chronic obstructive pulmonary disease) Diagnosis: Secondary (8) Cough Diagnosis: Secondary (9) Dysphagia Diagnosis: Secondary (10) HTN (hypertension) Diagnosis: Principal (11) Non-compliance Diagnosis: Secondary (12) Polysubstance abuse Diagnosis: Secondary (13) Anemia Diagnosis: Secondary (14) Ascending aortic aneurysm Diagnosis: Secondary Brief History This was a 71-year-old female known to our services with prior history esophageal cancer diagnosed in 2014, underwent chemotherapy and radiation as well as PEG tube placement due to dysphagia. Patient never followed up as outpatient with Dr. Santos. Her last visit was with Dr. Minaya, radiation oncologist. Per review of note, patient was supposed to follow up with Dr. Santos and have follow-up imaging. Patient was seen to the emergency room complaining of generalized weakness and pain after having a fall 2 months ago. Patient was a poor historian, information is obtained from review of previous medical records. Patient endorses that she tripped and fell 2 months ago and went to the ER of [facility] where she was examined and discharged. Review from medical records here at [place] shows that she has visited the emergency room 3-4 times for alcohol abuse, and also for a fall in February 2016. During the February ER visit, she had imaging studies done showing bilateral pulmonary nodules, concerning for metastatic disease. Unfortunately patient signed out AMA. A certified letter was sent by the Hospital. During this visit, patient complains of pain all over, she's noted weight loss of 5-6 pounds, has had a cough with sputum production, poor appetite, no fever, no chills. Has had chronic chest pain, SOB. Has had a few episodes of vomiting. States that she is so weak that her legs buckle and a few time she has "passed out". Denies any head injury, no neck pain. States that she lives with her significant other and he tries to help her out. Endorses that she has a lot of personal problems therefore she has not had the time to follow up with oncologist. She is complaining of difficulty swallowing, indicates the pills are getting stuck and she has not taken medications in several months. The last doctor she followed up with [facility] last week it is not clear if he did any workup. Her frame hand is Dr. Mccormick who recently started her on Xarelto, there is a prior history of atrial fibrillation however patient is not able to recalled when asked. Indicates she was put on this medication for "abdominal aneurysm" however this is not likely. Patient states that she was taking medications for pain, was on Lortab. States that she quit smoking approximately 6 months ago because she was coughing so much. Denies any daily alcohol use, however she drank 2 shots 2 nights ago because she was having so much pain. She does smoke marijuana regularly. CBC/BMP: 05/21/1660505/21/16605 Imaging EGD with stent. Biopsy ordered, but cancelled. PE at Discharge Physical Exam General General Appearance: No Acute Distress, Comfortable Eyes Eye Exam: Sclera White, Extraocular Movement Intact Ears & Nose Ears & Nose Exam: Nasal Mucosa Gilt Edge Throat Throat Exam: Oral Mucosa Gilt Edge & Moist Neck Neck Exam: Neck Supple, Trachea Midline Pulmonary Resp Exam: Clear Bilaterally, No Distress Cardiology CV Exam: Regular, Normal Sinus Rhythm Gastrointestinal/Abdomen GI Exam: Soft, Non-Tender, Bowel Sounds Present Musculoskeletal MS Exam: Normal Gait, Normal Tone Integumentary Skin Exam: Warm, Dry Extremeties Extremities Exam: No Edema, Pedal Pulses Palpable Neurologic Neuro Exam: Alert, Awake, Oriented, Speech Clear, Moving All Extremities Psychiatric Psych Exam: Appropriate Responses PUD Prophylasis PUD Prophylaxis: Protonix Transfer Summary Home with Hospice Hospital Course In the emergency room, patient was evaluated. She was found tachycardic, complaining of pain with minimal to touch. TSH was noted elevated. Alcohol level was 40. Tib-fib x-ray and foot x-ray didn't show any fractures. Abdominal pelvis CT shows abnormal lung exam with irregular 1.3 cm mass identified within the right lower lung. Chest x-ray showed multiple pulmonary masses, this appeared grossly stable as compared to the -chest exam from February 22, 2016. Head CT was negative. Chest CT is significant for bilateral pulmonary masses the largest and posterior right upper lobe measuring 5.9 x 4.2 cm. Some of this masses contained cavitation. This was likely secondary to metastatic disease. There was also an ascending aortic aneurysm measuring 4.6 cm. There is sclerotic severe compression deformity of what appears to be T6. Patient is examined, she is aware of imaging findings and is agreeable to undergo diagnostic workup as needed. When asked about family, indicates she has grown children that she has very little contact with. Patient is admitted for further evaluation and treatment. Patient continues with wt. loss, decreased appetite, and weakness. s/p EGD & bx ordered, Path +ve malignancy/squamous cell carcinoma. Biopsy was canceled at that time. -CEA level elevated during hosptal course.-Oncology Rec palliative chemo / Pt refused it initially, along with PEG. She did agree for EGD & stent which was performed. Her decline continued even with aggressive care. Discussions and supportive offered throughout the stay. Patient did finally agreed w hospice so consult was done. COPD with chronic bronchitis DuoNeb's 4 times a day and when necessary Tachycardia, initially thought to be due to dehydration. Improved -continue low dose Atenolol 12.5 mg po bid Anemia, etiology unclear Iron profile results noted, low iron stores We will check stools for occult blood-pending -HH stable Complaining of dysphagia, prior history with last EGD with dilatation in 2015. -Swallow evaluation results noted, continue regular diet. -GI input appreciated -S/P EGD with dilatation 05/20 -Barium swallow done today, esophageal irregularity, no obstruction -s/p EGD w Stent 05/23/16 Thrush -Nystatin swish and swallow 4 times a day/ better Hypothyroid, has been noncompliant with medications, TSH 19.9 -Continue Synthroid at 50 g daily, needs to follow up as outpatient with PCP for repeat TSH in 6 weeks. Polysubstance abuse, alcohol level 40-stable -Monitor for withdrawal symptoms -Folic acid and thiamine -Continue with Xanax when necessary -Counselled about substance abuse. History of A. fib, currently sinus rhythm, was on Xarelto with poor compliance -Continue to hold Xarelto, d/t progressive ca / high risk of bleeding Ascending aortic aneurysm measuring 4.6 cm (previous CT chest measurement 4.5 cm ) -continue to monitor, stable Pt Condition on Discharge: Stable Discharge Disposition: Discharge Home Discharge Instructions DIET: Follow Instructions for: As Tolerated, No Restrictions Speech Therapy-Diet Recommends: Regular Additional Diet Instructions: soft food Fluid Restrictions: none Activities you can perform: Regular-No Restrictions Other Activity Instructions: NA Follow up Referrals: Gastroenterology with Zach Robbins MD Oncology - 3 Weeks PCP Follow-up New Medications: Alprazolam (Xanax) 1 Mg Tab 1 MG PO TID PRN ANXIETY #60 TAB Hydrocodone-Acetaminophen (Hydrocodone-Acetaminophen) 10-325 mg Tab 1 TAB PO Q6HR PRN PAIN 1-10 #90 TAB Continued Medications: Albuterol Sulfate 8 GM Inhaler (Ventolin Hfa) 8 Gm Aero 1 PUFF INH Q4 * SHAKE WELL BEFORE USE * PRN SHORTNESS OF BREATH BOX Lisinopril (Lisinopril) 20 Mg Tab 20 PO DAILY #30 Ref 0 TAB Nitroglycerin (Nitroglycerin Tab 0.4 Mg Sl) 0.4 Mg Subl 0.4 MG SL DIRECTED TAB Pantoprazole Sodium (Protonix) 40 Mg Tab 40 MG PO DAILY stomach acid Days 30 Ref 0 TAB Rivaroxaban (Xarelto) 10 Mg Tab Unknown Dose PO DAILY Blood Clot Prevention Ref 0 TAB Discontinued Medications: Albuterol/Ipratropium (Resp: Albuterol/Ipratropium 2.5 Mg/0.5 Mg) 1 Amp Nebu 1 AMPULE NEB BID PRN SHORTNESS OF BREATH ML Alprazolam (Xanax 1 mg) Alprazolam 1 mg Tab 1 MG PO TID PRN ANXIETY TAB Alprazolam (Xanax) 1 Mg Tab 1 MG PO TID PRN ANXIETY Ref 0 TAB Hydrocodone-Acetaminophen (Lortab) 10-325 Mg Tab 1 TAB PO Q6HR PRN PAIN Ref 0 TAB Hydrocodone/Acetaminophen 10 mg/325 mg (Lortab 10 mg/325 mg) 1 Tab 1 TAB PO Q4H PRN PAIN TAB Additional Information Patient was sent home with Hospice and caregivers Etelvina Del Real May 24, 2016 19:09
[2016-07-23] MEDS ORDERED: ALBUAER3 INH (16:03)
[2016-07-23] MEDS ORDERED: OMEP20TA PO (16:03)
== END 2016-05-24 15:47 | disposition hospice, home (50) | DRG 375 ==
LOC: NEPC 13:44 → NEDA 17:56 → MERGE 17:56 → N04A 21:14
PROVIDERS: ADMIT Specialist; ATTEND Specialist
PROC: 0DB28ZX Excision of Middle Esophagus, Via Natural or Artificial Opening Endoscopic, Diagnostic (ICD-10-PCS; principal; 2016-05-20 09:40)
PROC: 0D728DZ Dilation of Middle Esophagus with Intraluminal Device, Via Natural or Artificial Opening Endoscopic (ICD-10-PCS; 2016-05-23)
DX: C15.4 Malignant neoplasm of middle third of esophagus (principal); B37.0 Candidal stomatitis; C78.02 Secondary malignant neoplasm of left lung; C78.01 Secondary malignant neoplasm of right lung; I71.2 Thoracic aortic aneurysm, without rupture; I48.0 Paroxysmal atrial fibrillation; R55 Syncope and collapse; R13.19 Other dysphagia; J44.9 Chronic obstructive pulmonary disease, unspecified; E03.9 Hypothyroidism, unspecified; G89.29 Other chronic pain; F12.90 Cannabis use, unspecified, uncomplicated; F10.10 Alcohol abuse, uncomplicated; Y90.2 Blood alcohol level of 40-59 mg/100 ml; M19.90 Unspecified osteoarthritis, unspecified site; K44.9 Diaphragmatic hernia without obstruction or gangrene; I10 Essential (primary) hypertension; D64.9 Anemia, unspecified; R11.2 Nausea with vomiting, unspecified; E86.0 Dehydration; R29.6 Repeated falls; Z96.653 Presence of artificial knee joint, bilateral; Z92.21 Personal history of antineoplastic chemotherapy; Z90.710 Acquired absence of both cervix and uterus; Z91.19 Patient's noncompliance with other medical treatment and regimen; Z87.891 Personal history of nicotine dependence; Z91.14 Patient's other noncompliance with medication regimen; Z79.02 Long term (current) use of antithrombotics/antiplatelets; Z92.3 Personal history of irradiation; F19.10 Other psychoactive substance abuse, uncomplicated
CPT/HCPCS: 36600; 70450; 71010; 71250; 72170; 73552; 73590; 73620; 74177; 74230; 76000; 80048; 80053; 80076; 80320; 81001; 82378; 82550; 82607; 82728; 82805; 83540; 83550; 83690; 84439; 84443; 84484; 85007; 85025; 85027; 85044; 85610; 85730; 88305; 93005; 94640; 94664; 96361; 96374; 96375; C1769; C2625; J2270; J2405; J7030; Q9967